=== PATIENT | male | born 1965 | race Caucasian/White ===

== ENCOUNTER 2021-01-08 07:36 | Outpatient (REF) | payer OTHER, SELFPAY ==
[2021-01-08 10:53] LABS: Alanine Aminotransferase 14 U/L (0-40); Anion Gap 15 (12-20); Aspartate Amino Transferase 19 U/L (5-37); Blood Urea Nitrogen 20 mg/dL (9-16); Carbon Dioxide 26 mmol/L (22-29); Chloride 102 mmol/L (96-108); Estimated Glomerular Filt Rate > 60; Potassium 3.9 mmol/L (3.3-5.1); Sodium 139 mmol/L (135-145)
[2021-01-08 11:17] LABS: Free T4 (Free Thyroxine) 1.22 ng/dL (0.71-1.85); Thyroid Stimulating Hormone 2.73 uIU/mL (0.32-4.0)
== END 2021-01-08 07:37 | disposition home or self-care (01) ==
LOC: HO.10HDL 07:36
PROVIDERS: Visit Provider Family Medicine
DX: I42.9 Cardiomyopathy, unspecified (principal); R00.2 Palpitations; Z79.899 Other long term (current) drug therapy
CPT/HCPCS: 36415; 80051; 82550; 82565; 84439; 84443; 84450; 84460; 84520

== ENCOUNTER 2021-10-13 08:11 | Outpatient (REF) | payer OTHER, SELFPAY ==
[2021-10-13 10:28] LABS: MANUAL DIFF FLAG NO
[2021-10-13 10:47] LABS: Basophils Absolute Auto 0.1 X10*3/uL (0.0-0.2); Basophils Percent Auto 0.9 % (0-2); Eosinophils Absolute Auto 0.1 X10*3/uL (0.0-0.4); Hematocrit 35.8 % (42.0-52.0); Hemoglobin 12.3 g/dl (14.0-18.0); Imm Gran Abs Auto 0.02 X10*3/uL (0.00-0.03); Imm Gran Pct Auto 0.4 % (0.0-0.4); Lymphocytes Absolute Auto 1.5 X10*3/uL (1.2-4.9); Lymphocytes Percent Auto 28.4 % (20-40); Mean Corpuscular HGB Conc 34.4 g/dl (31.0-36.0); Mean Corpuscular Hemoglobin 30.8 pg (27.0-33.0); Mean Corpuscular Volume 89.5 fL (80.0-98.0); Mean Platelet Volume 9.8 fL (9.4-12.4); Monocytes Absolute Auto 0.5 X10*3/uL (0.1-1.2); Monocytes Percent Auto 9.1 % (2-11); Neutrophils Absolute Auto 3.2 x10*3/uL (2.0-8.3); Neutrophils Percent Auto 59.2 % (45-73); Platelet Count 261 X10*3/uL (160-400); Red Cell Distribution Width 12.7 % (11.0-16.0); White Blood Count 5.4 X10*3/uL (4.8-10.8)
[2021-10-13 10:54] LABS: Anion Gap 11 (12-20); Blood Urea Nitrogen 24 mg/dL (9-16); Carbon Dioxide 28 mmol/L (22-29); Chloride 105 mmol/L (96-108); Estimated Glomerular Filt Rate > 60; Potassium 4.2 mmol/L (3.3-5.1); Sodium 140 mmol/L (135-145)
[2021-10-13 11:18] LABS: Free T4 (Free Thyroxine) 1.19 ng/dL (0.71-1.85); Thyroid Stimulating Hormone 3.46 uIU/mL (0.32-4.0)
== END 2021-10-13 08:12 | disposition home or self-care (01) ==
LOC: HO.10HDL 08:11
PROVIDERS: Absent Provider Internal Medicine Cardiovascular Disease; Visit Provider Family Medicine
DX: R06.02 Shortness of breath (principal); Z79.899 Other long term (current) drug therapy
CPT/HCPCS: 36415; 80051; 82565; 84439; 84443; 84520; 85025

== ENCOUNTER 2021-12-15 14:01 | Outpatient (REF) | payer OTHER, SELFPAY ==
[2021-12-15 14:33] LABS: INTERNATIONAL NORM RATIO 1.2 (0.9-1.1); Prothrombin Time 13.1 SEC (9.9-13.0)
== END 2021-12-15 14:02 | disposition home or self-care (01) ==
LOC: HO.LAB 14:01
PROVIDERS: PCP Family Medicine; Visit Provider Family Medicine
DX: Z01.818 Encounter for other preprocedural examination (principal); Z79.01 Long term (current) use of anticoagulants
CPT/HCPCS: 36415; 85610

== ENCOUNTER 2022-01-27 08:24 | Outpatient (REF) | payer OTHER, SELFPAY ==
[2022-01-27 10:32] LABS: MANUAL DIFF FLAG NO
[2022-01-27 10:39] LABS: Basophils Percent Auto 0.5 % (0-2); Eosinophils Absolute Auto 0.2 X10*3/uL (0.0-0.4); Eosinophils Percent Auto 2.6 % (0-4); Hematocrit 35.4 % (42.0-52.0); Hemoglobin 12.5 g/dl (14.0-18.0); Imm Gran Abs Auto 0.03 X10*3/uL (0.00-0.03); Imm Gran Pct Auto 0.5 % (0.0-0.4); Lymphocytes Absolute Auto 1.7 X10*3/uL (1.2-4.9); Lymphocytes Percent Auto 29.8 % (20-40); Mean Corpuscular HGB Conc 35.3 g/dl (31.0-36.0); Mean Corpuscular Hemoglobin 31.5 pg (27.0-33.0); Mean Corpuscular Volume 89.2 fL (80.0-98.0); Mean Platelet Volume 9.6 fL (9.4-12.4); Monocytes Absolute Auto 0.7 X10*3/uL (0.1-1.2); Monocytes Percent Auto 11.7 % (2-11); Neutrophils Absolute Auto 3.2 x10*3/uL (2.0-8.3); Neutrophils Percent Auto 54.9 % (45-73); Platelet Count 274 X10*3/uL (160-400); Red Blood Count 3.97 X10*6/uL (4.60-5.80); White Blood Count 5.8 X10*3/uL (4.8-10.8)
[2022-01-27 11:05] LABS: Iron 78 mcg/dL (45-160); Percent Iron Saturation 23 % (15-50); Total Iron Binding Capacity 343 mcg/dL (228-428); Unsaturated Iron Binding 265 ug/dL
[2022-01-27 11:12] LABS: Ferritin 118 ng/mL (20-250)
[2022-01-27 11:18] LABS: Alanine Aminotransferase 15 U/L (0-40); Albumin Level 4.3 g/dL (3.5-5.0); Alkaline Phosphatase 38 U/L (39-117); Anion Gap 9 (12-20); Aspartate Amino Transferase 16 U/L (5-37); Bilirubin Total 0.6 mg/dL (0.0-1.0); Blood Urea Nitrogen 23 mg/dL (9-16); Calcium 10.4 mg/dL (8.4-10.2); Carbon Dioxide 30 mmol/L (22-29); Chloride 106 mmol/L (96-108); Estimated Glomerular Filt Rate > 60; Glucose Random 92 mg/dL (60-115); Potassium 4.8 mmol/L (3.3-5.1); Sodium 140 mmol/L (135-145); Total Protein 6.8 g/dL (6.5-8.0)
[2022-01-27 14:48] LABS: Folate 9.9 ng/mL (> or = 4.0); Vitamin B12 459 pg/mL (200-900)
== END 2022-01-27 08:25 | disposition home or self-care (01) ==
LOC: HO.10HDL 08:24
PROVIDERS: Internal Medicine Cardiovascular Disease; Visit Provider Family Medicine
DX: D64.9 Anemia, unspecified (principal); I42.8 Other cardiomyopathies
CPT/HCPCS: 36415; 80053; 82607; 82728; 82746; 83540; 85025

== ENCOUNTER 2022-07-09 08:35 | Outpatient (REF) | payer OTHER, SELFPAY ==
--- NOTE | ~2022-07-09 | XR_ITS ---
EXAMINATION: XR SINUSES CLINICAL INFORMATION: Headaches sinus pressure COMPARISON: None TECHNIQUE: 3 views of the sinuses were obtained. FINDINGS: Paranasal sinuses appear clear without air-fluid levels. No fractures are identified. No radiodense foreign bodies. XR/XR sinus min 3V IMPRESSION: Unremarkable examination.
--- NOTE | ~2022-07-09 | XR_ITS ---
EXAMINATION: XR CERVICAL SPINE CLINICAL INFORMATION: Neck pain COMPARISON: None TECHNIQUE: 6 views of the cervical spine are obtained: AP, odontoid x2, lateral, bilateral oblique. FINDINGS: There is straightening cervical lordosis with mild reversal cervical lordosis. The vertebral bodies are normal in height and there is no vertebral compression, spondylolisthesis, destructive process, or prevertebral soft tissue swelling. There are degenerative disc changes with disc narrowing and vertebral spurring C5-C6, C6-C7, and C7-T1. Oblique views demonstrated left foraminal spurring at both C5-C6 and at C7-T1, and borderline bilateral foraminal spurring at C6-C7. No cervical rib. Lung apices are clear. There is an AICD noted upper chest. XR/XR cervical spine min 6V IMPRESSION: 1. Degenerative disc changes C5-C6, C6-C7, and C7-T1. 2. Left foraminal spurring at both C5-C6 and C7-T1. Mild bilateral foraminal spurring C6-C7.
== END 2022-07-09 08:36 | disposition home or self-care (01) ==
LOC: HO.XRAY 08:35
PROVIDERS: PCP Family Medicine; Visit Provider Family Medicine
DX: R51.9 Headache, unspecified (principal); M54.2 Cervicalgia
CPT/HCPCS: 70220; 72052

== ENCOUNTER → 2022-09-15 13:26 | Outpatient (BNVA) | payer OTHER, SELFPAY | PROVIDERS: PCP Family Medicine; Visit Provider Surgery | DX: R22.42 Localized swelling, mass and lump, left lower limb (principal); I49.9 Cardiac arrhythmia, unspecified; Z79.01 Long term (current) use of anticoagulants; Z95.0 Presence of cardiac pacemaker | CPT/HCPCS: 11406; 88304; 99202 ==

== ENCOUNTER 2022-09-15 18:14 | Outpatient (REF) | payer OTHER, SELFPAY | END 2022-09-15 18:15 | disposition home or self-care (01) | LOC: HO.LNP 18:14 | PROVIDERS: Visit Provider Surgery | DX: R22.40 Localized swelling, mass and lump, unspecified lower limb (principal) | CPT/HCPCS: 11406 ==

== ENCOUNTER → 2022-09-30 10:33 | Outpatient (BNVA) | payer OTHER, SELFPAY | PROVIDERS: PCP Family Medicine; Visit Provider Surgery | DX: Z13.89 Encounter for screening for other disorder (principal) ==

== ENCOUNTER 2022-10-13 09:13 | Outpatient (REF) | payer OTHER, SELFPAY ==
[2022-10-13 09:27] LABS: MANUAL DIFF FLAG NO
[2022-10-13 10:04] LABS: Basophils Absolute Auto 0.1 X10*3/uL (0.0-0.2); Basophils Percent Auto 1.2 % (0-2); Eosinophils Absolute Auto 0.1 X10*3/uL (0.0-0.4); Hematocrit 38.2 % (42.0-52.0); Hemoglobin 13.4 g/dl (14.0-18.0); Imm Gran Abs Auto 0.02 X10*3/uL (0.00-0.03); Imm Gran Pct Auto 0.4 % (0.0-0.4); Lymphocytes Absolute Auto 1.6 X10*3/uL (1.2-4.9); Lymphocytes Percent Auto 32.1 % (20-40); Mean Corpuscular HGB Conc 35.1 g/dl (31.0-36.0); Mean Corpuscular Hemoglobin 30.9 pg (27.0-33.0); Mean Platelet Volume 9.4 fL (9.4-12.4); Monocytes Absolute Auto 0.5 X10*3/uL (0.1-1.2); Monocytes Percent Auto 10.2 % (2-11); Neutrophils Absolute Auto 2.8 x10*3/uL (2.0-8.3); Neutrophils Percent Auto 54.1 % (45-73); Platelet Count 254 X10*3/uL (160-400); Red Blood Count 4.34 X10*6/uL (4.60-5.80); Red Cell Distribution Width 12.3 % (11.0-16.0); White Blood Count 5.1 X10*3/uL (4.8-10.8)
[2022-10-13 10:40] LABS: Anion Gap 11 (12-20); Blood Urea Nitrogen 16 mg/dL (9-16); Carbon Dioxide 27 mmol/L (22-29); Chloride 104 mmol/L (96-108); Estimated Glomerular Filt Rate > 60; Iron 93 mcg/dL (45-160); Percent Iron Saturation 30 % (15-50); Potassium 4.1 mmol/L (3.3-5.1); Sodium 138 mmol/L (135-145); Total Iron Binding Capacity 313 mcg/dL (228-428); Unsaturated Iron Binding 220 ug/dL
[2022-10-13 10:56] LABS: Free T4 (Free Thyroxine) 1.22 ng/dL (0.71-1.85)
== END 2022-10-13 09:14 | disposition home or self-care (01) ==
LOC: HO.LAB 09:13
PROVIDERS: Visit Provider Family Medicine
DX: I11.0 Hypertensive heart disease with heart failure (principal); I50.9 Heart failure, unspecified; D50.9 Iron deficiency anemia, unspecified
CPT/HCPCS: 36415; 80051; 82565; 83540; 84439; 84520; 85025

== ENCOUNTER 2023-07-07 09:07 | Outpatient (REF) | payer OTHER, SELFPAY ==
[2023-07-07 11:16] LABS: Alanine Aminotransferase 11 U/L (0-40); Anion Gap 11 (12-20); Aspartate Amino Transferase 15 U/L (5-37); Blood Urea Nitrogen 20 mg/dL (9-16); Carbon Dioxide 28 mmol/L (22-29); Chloride 103 mmol/L (96-108); Estimated Glomerular Filt Rate > 60; Sodium 138 mmol/L (135-145)
== END 2023-07-07 09:08 | disposition home or self-care (01) ==
LOC: HO.10HDL 09:07
PROVIDERS: Visit Provider Family Medicine
DX: I10 Essential (primary) hypertension (principal); E78.00 Pure hypercholesterolemia, unspecified; Z79.899 Other long term (current) drug therapy
CPT/HCPCS: 36415; 80051; 82550; 82565; 84450; 84460; 84520

== ENCOUNTER 2024-02-15 07:59 | Outpatient (REF) | payer OTHER, SELFPAY ==
[2024-02-15 11:00] LABS: Anion Gap 14 (12-20); Blood Urea Nitrogen 17 mg/dL (9-16); Carbon Dioxide 24 mmol/L (22-29); Chloride 106 mmol/L (96-108); Estimated Glomerular Filt Rate > 60; Sodium 140 mmol/L (135-145)
[2024-02-15 11:09] LABS: Free T4 (Free Thyroxine) 1.33 ng/dL (0.71-1.85); Thyroid Stimulating Hormone 2.99 uIU/mL (0.32-4.0)
== END 2024-02-15 08:00 | disposition home or self-care (01) ==
LOC: HO.10HDL 07:59
PROVIDERS: Visit Provider Family Medicine
DX: I10 Essential (primary) hypertension (principal); I49.5 Sick sinus syndrome
CPT/HCPCS: 36415; 80051; 82565; 84439; 84443; 84520

== ENCOUNTER 2024-09-06 10:16 | Outpatient (AMB) | payer OTHER, SELFPAY ==
--- OUTSIDE RECORDS SUMMARY | 2024-09-06 10:19 | XMS_ITS ---
Author Organization [facility] Address [address] [place] [address] Care Team Providers Care Tobacco Packing Machine Operator Name Role Phone Juan Carlos Rios MD Primary Care Provider Unavailab Ion Delarosa Unavailable [phone] REASON FOR VISIT cancel appt and reschedule Encounters Encounter Location Date Provider Diagnosis [facility] [address] [place] [address] 06/05/2024 Ion Mckeon PLAN OF TREATMENT Next Appt Details Provider Name:Ion Mckeon , 10/02/2024 11:10:00 AM, [address] [place] [address], [address], [place], [address],
--- OUTSIDE RECORDS SUMMARY | 2024-09-06 10:19 | XMS_ITS | Patient Health Record ---
Author Organization [facility] Address [address] [place] [address] Care Team Providers Care Assistant Director Name Role Phone Gabriel SERRATO, Juan Carlos Primary Care Provider Ion Martinez [phone] REASON FOR REFERRAL No Information SOCIAL HISTORY Sex Assigned At : Social History Observation Description Sex Assigned At Unknown Encounters Encounter Location Date Provider Diagnosis [facility] [address] [place] [phone] 06/05/2024 Ion Mckeon [facility] [address] [facility] [address] [place] [address] 06/05/2024 Ion Mckeon PLAN OF TREATMENT Next Appt Details Provider Name:Ion Mckeon , 10/02/2024 11:10:00 AM, [address] [facility], [address], [place], [address], Insurance Providers Payer Name Payer Address Payer Phone Subscriber Number Group Number Insured Name Patient Relationship to Insured Coverage Start Date Coverage End Date [facility] [address] [address] [place], [place] [id number] KIM DAY Self - patient is the insured
--- OUTSIDE RECORDS SUMMARY | 2024-09-06 10:19 | XMS_ITS ---
Author Organization [facility] Address [address] [facility] [address] [place] [address] Care Team Providers Care Head Usher Name Role Phone Juan Carlos Rios MD Primary Care Provider Unavailab Ion Delarosa [facility] [phone] REASON FOR VISIT Patient presents today for a screening colonoscopy Encounters Encounter Location Date Provider Diagnosis [facility] [address] [place] [address] [address] [place] [address] 06/05/2024 Ion Mckeon PLAN OF TREATMENT Next Appt Details Provider Name:Ion Mckeon , 10/02/2024 11:10:00 AM, [address] [place] [address], [address], [place], [address],
--- NOTE | 2024-09-06 10:27 | A.OFFVIS_ITS ---
Intake Visit Reasons: Penile Rash/BPH/HX Kidney Stones Intake Note: Patient is present for PENILE RASH/BPH/HX KIDNEY STONES Urology Medication:NONE Antibiotic Allergy:CLARITHROMYCIN Blood Thinner:XARELTO TODAY'S PVR:0ML'S Mid Level Java Developer Required: No Allergies clarithromycin [Biaxin] Allergy (Unknown, Verified 09/06/24 10:29) Agitated codeine Allergy (Unknown, Uncoded 09/06/24 10:29) Anxiety HPI Comments Details: Alan is a pleasant male. He is a patient of Dr. Rios. He seen for the following urologic conditions - balanitis - tinea cruris - lower urinary tract symptoms Lower urinary tract symptoms Progressive Predominantly weakness of stream over the past 4-6 months No prior indications Trial tamsulosin Tinea cruris Longstanding Recently given powder to use Will trial terbinafine Balanitis Prescription for topical therapy provided [facility] Medical History (Updated 09/06/24 @ 10:58 by Olivier Whatley MD) CHF (congestive heart failure) Heart disease Dilated cardiomyopathy Pilonidal cyst with abscess Tinea cruris Obstructive sleep apnea (adult) (pediatric) Paroxysmal atrial fibrillation Atrioventricular block, complete Pure hyperglyceridemia Other seasonal allergic rhinitis Gastro-esophageal reflux disease without esophagitis Nonrheumatic mitral (valve) insufficiency Encounter for screening for malignant neoplasm of colon BPH without urinary obstruction or lower urinary tract symptoms History of cardiac pacemaker History of kidney stones Pulmonary fibrosis, unspecified Dysphagia Primary hypertension Disorder of the skin and subcutaneous tissue, unspecified Mass of thigh Hypertension Pacemaker Surgical History History of open heart surgery Family History Mother Diabetes Thyroid disease Father Heart disease Social History Alcohol intake: current Alcohol intake frequency: holidays/special occasions only Patient Tobacco Use Status: Never used Tobacco Review of Systems Const Denies chills and Denies fever(s) Card Reports no additional complaints and Denies syncope Resp Denies cough GI Denies abdominal pain and Denies heartburn Reports as per HPI and Denies change in libido Neuro Denies syncope Psych Denies change in libido Endo Denies change in libido Physical Exam Const General: cooperative, healthy appearing, comfortable and no acute distress Orientation/consciousness: patient oriented x3 HEENT Face and sinus: Yes normal facial exam Mouth: moist mucous membranes Neck Neck: Yes normal visual inspection, Yes full ROM and Yes trachea midline Chest Chest palpation & inspection: normal inspection of the chest Resp Effort & Inspection: normal respiratory effort, able to speak in complete sentences and no respiratory distress GI Inspection: Yes normal to inspection Back/Spine/Pelvis Cervical Spine: normal cervical lordosis Thoracic/Lumbar Spine: thoracic and lumbar spine normal to inspection Skin General skin exam: no rashes or lesions noted Neuro General: patient oriented x3, gait normal, tone normal and moves all extremities Extrem General: Yes normal to inspection and Yes capillary refill normal Office Procedures Post Void Residual Post Residual Void Post Void Residual (PVR): 0 58213-Jqin Void Residual by ultrasound Results AMB Urinalysis, Automated UA Leukoctes 0 John/uL Last Edit by FLORIDA Kasper on 09/06/24 10:37 UA Nitrite Negative Last Edit by FLORIDA Kasper on 09/06/24 10:37 UA Urobilinogen 0.2 mg/dL Last Edit by FLORIDA Kasper on 09/06/24 10:3 7 UA Protein 0 mg/dL Last Edit by FLORIDA Kasper on 09/06/24 10:37 UA pH 6.0 Last Edit by FLORIDA Kasper on 09/06/24 10:37 UA Blood 0 Tal/uL Last Edit by FLORIDA Kasper on 09/06/24 10:37 UA Specific [place] 1.025 Last Edit by FLORIDA Kasper on 09/06/24 10: 37 UA Ketone Negative Last Edit by FLORIDA Kasper on 09/06/24 10:37 UA Bilirubin 0 mg/dL Last Edit by FLORIDA Kasper on 09/06/24 10:37 UA Glucose 0 mg/dL Last Edit by FLORIDA Kasper on 09/06/24 10:37 Results Reviewed Results Reviewed: Laboratory Last Values Urine pH (Auto) 6.0 09/06/24 10:37 Specific [place] (Auto) 1.025 09/06/24 10:37 Urine Protein (Auto) 0 mg/dL 09/06/24 10:37 Glucose (UA)(Auto) 0 mg/dL 09/06/24 10:37 Urine Ketones (Auto) Negative 09/06/24 10:37 Urine Blood (Auto) 0 Tal/uL 09/06/24 10:37 Urine Nitrite (Auto) Negative 09/06/24 10:37 Urine Bilirubin (Auto) 0 mg/dL 09/06/24 10:37 Urine Urobilinogen (Auto) 0.2 mg/dL 09/06/24 10:37 Leukocyte Esterase (Auto) 0 John/uL 09/06/24 10:37 Assessment & Plan Assessment & Plan (1) Tinea cruris: Code(s): B35.6 - Tinea cruris Category: Medical (2) Balanitis: Code(s): N48.1 - Balanitis Category: Medical (3) Bladder outlet obstruction: Code(s): N32.0 - Bladder-neck obstruction Category: Medical Plan Prescriptions provided Six week follow-up Orders: Orders AMB Urinalysis Automated Today Z13.9 - Encounter for screening, unspecified Medications: New terbinafine HCl 250 mg PO DAILY 7 days 7 tabs 0RF B35.6 - Tinea cruris tamsulosin 0.4 mg PO BEDTIME 30 days 30 caps 1RF N32.0 - Bladder-neck obstruction, N40.1 - Benign prostatic hyperplasia with lower urinary tract symptoms, R35.1 - Nocturia clotrimazole-betamethasone 1-0.05 % Apply thin coat 2 times per day 1 appl topical BID 4 weeks 45 grams 0RF N48.1 - Balanitis Patient Instructions: Imaging studies, laboratory and physical exam results were discussed and reviewed in detail. No major barriers to patient understanding were identified. An opportunity to ask questions regarding the treatment plan was provided. All questions were answered. The patient expressed understanding and agreement with the above treatment plan. The patient is aware they should contact our office by phone for worsening of their current condition or the appearance of new urologic symptoms. Compliance is encouraged with any medications and followup testing that is ordered. It is a privilege to participate in the urologic care of your patient. If you have any questions or concerns regarding treatment for the above conditions, or other urologic issues, please do not hesitate to contact me. The office telephone contact is [phone]. This note is constructed using voice recognition software. While every effort has been made to ensure accuracy tetryl screen operator errors may have been included. Yours sincerely, Dr Olivier Whatley MD, [facility] - Urology Providers of Expert, Compassionate Care for the Genitourinary System Coding Level of Care Code New Pt Level 4 (34024) Diagnoses Tinea cruris B35.6 Balanitis N48.1 Bladder outlet obstruction N32.0 CPT Codes Post Residual Void - PVR CPT Code: 86990-Citr Void Residual by ultrasound ([id number])
== END 2024-09-06 11:00 | disposition home or self-care (01) ==
PROVIDERS: PCP Family Medicine; Visit Provider Urology
DX: B35.6 Tinea cruris (principal); N48.1 Balanitis; N32.0 Bladder-neck obstruction; Z13.9 Encounter for screening, unspecified
CPT/HCPCS: 99204

== ENCOUNTER → 2024-09-06 10:16 | Outpatient (BNVA) | payer OTHER, SELFPAY | PROVIDERS: PCP Family Medicine; Visit Provider Urology | DX: B35.6 Tinea cruris (principal); N48.1 Balanitis; N32.0 Bladder-neck obstruction | CPT/HCPCS: 51798; 81003; 99202 ==

== ENCOUNTER 2024-12-07 07:53 | Outpatient (REF) | payer OTHER, SELFPAY ==
[2024-12-07 09:38] LABS: MANUAL DIFF FLAG NO
[2024-12-07 09:56] LABS: Basophils Absolute Auto 0.1 X10*3/uL (0.0-0.2); Basophils Percent Auto 0.9 % (0-2); Eosinophils Absolute Auto 0.1 X10*3/uL (0.0-0.4); Eosinophils Percent Auto 2.6 % (0-4); Hematocrit 36.4 % (42.0-52.0); Hemoglobin 13.1 g/dl (14.0-18.0); Imm Gran Abs Auto 0.02 X10*3/uL (0.00-0.03); Imm Gran Pct Auto 0.4 % (0.0-0.4); Lymphocytes Absolute Auto 1.7 X10*3/uL (1.2-4.9); Lymphocytes Percent Auto 31.6 % (20-40); Mean Corpuscular Hemoglobin 31.4 pg (27.0-33.0); Mean Corpuscular Volume 87.3 fL (80.0-98.0); Mean Platelet Volume 9.3 fL (9.4-12.4); Monocytes Absolute Auto 0.6 X10*3/uL (0.1-1.2); Monocytes Percent Auto 10.4 % (2-11); Neutrophils Absolute Auto 2.9 x10*3/uL (2.0-8.3); Neutrophils Percent Auto 54.1 % (45-73); Platelet Count 231 X10*3/uL (160-400); Red Blood Count 4.17 X10*6/uL (4.60-5.80); Red Cell Distribution Width 12.9 % (11.0-16.0); White Blood Count 5.3 X10*3/uL (4.8-10.8)
[2024-12-07 10:15] LABS: Alanine Aminotransferase 15 U/L (0-40); Anion Gap 10 (12-20); Aspartate Amino Transferase 20 U/L (5-37); Carbon Dioxide 27 mmol/L (22-29); Chloride 105 mmol/L (96-108); Estimated Glomerular Filt Rate 53; Potassium 4.1 mmol/L (3.3-5.1); Sodium 138 mmol/L (135-145)
[2024-12-07 10:25] LABS: Prostate Specific Antigen Scr 0.44 ng/mL (<0.05-4.0)
[2024-12-07 10:34] LABS: Free T4 (Free Thyroxine) 1.19 ng/dL (0.71-1.85); Thyroid Stimulating Hormone 3.73 uIU/mL (0.32-4.0)
== END 2024-12-07 07:54 | disposition home or self-care (01) ==
LOC: HO.10HDL 07:53
PROVIDERS: Visit Provider Family Medicine
DX: N40.1 Benign prostatic hyperplasia with lower urinary tract symptoms (principal); R53.83 Other fatigue; I42.9 Cardiomyopathy, unspecified
CPT/HCPCS: 36415; 80051; 82550; 82565; 84153; 84439; 84443; 84450; 84460; 85025

== ENCOUNTER 2024-12-18 11:47 | Outpatient (AMB) | payer OTHER, SELFPAY ==
--- NOTE | 2024-12-18 11:50 | A.OFFVIS_ITS ---
Intake Visit Reasons: 6w Med Review Intake Note: Patient is present for 6M MED REVIEW Urology Medication:TAMSULSOIN Antibiotic Allergy:CLARITHROMYCIN Blood Thinner:RIVAROXABAN Community Services Manager Required: No Allergies clarithromycin [Biaxin] Allergy (Severe, Verified 01/30/25 13:54) had an SC after taking Biaxin, avoids all macrolides codeine Allergy (Severe, Uncoded 01/29/25 16:18) Hypotension HPI Comments Details: Alan is a pleasant male. He is a patient of Dr. Rios. He seen for the following urologic conditions - balanitis - tinea cruris - lower urinary tract symptoms Follow-up use of tamsulosin Refill tamsulosin Six-month follow-up imaging Lower urinary tract symptoms Progressive Predominantly weakness of stream over the past 4-6 months No prior indications Tinea cruris Longstanding Recently given powder to use Will trial terbinafine Balanitis Prescription for topical therapy provided [facility] Medical History Anxiety Seasonal allergies Environmental allergies History of cardioversion Hx of myocardial infarction (~2011) 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 CHF (congestive heart failure) Heart disease Dilated cardiomyopathy Pilonidal cyst with abscess Tinea cruris Obstructive sleep apnea (adult) (pediatric) Paroxysmal atrial fibrillation Atrioventricular block, complete Pure hyperglyceridemia Other seasonal allergic rhinitis Gastro-esophageal reflux disease without esophagitis Nonrheumatic mitral (valve) insufficiency Encounter for screening for malignant neoplasm of colon BPH without urinary obstruction or lower urinary tract symptoms History of cardiac pacemaker History of kidney stones Pulmonary fibrosis, unspecified Dysphagia Primary hypertension Disorder of the skin and subcutaneous tissue, unspecified Mass of thigh Hypertension Pacemaker (~1999) Surgical History Hx of oral surgery (~2022) History of open heart surgery (1969) Family History Mother Diabetes Thyroid disease Father Heart disease Social History Household Members: Spouse Housing: House Are you a primary post acute care nurse practitioner to a significant other at home: No Do you presently have visiting nurse or other home services: No Alcohol intake: current Alcohol intake frequency: holidays/special occasions only Patient Tobacco Use Status: Never used Tobacco Use of substances other than those prescribed or required for medical reasons: No Have you been hit, kicked, punched, or otherwise hurt by someone within the past year? If so, by whom?: No Are you DNR?: No Advance Directives: No Advance Directives Information Provided: Yes Advance Directives on File: No Poor oral hygiene: Yes Review of Systems Const Denies chills and Denies fever(s) Card Reports no additional complaints and Denies syncope Resp Denies cough GI Denies abdominal pain and Denies heartburn Reports as per HPI and Denies change in libido Neuro Denies syncope Psych Denies change in libido Endo Denies change in libido Physical Exam Const General: cooperative, healthy appearing, comfortable and no acute distress Orientation/consciousness: patient oriented x3 HEENT Face and sinus: Yes normal facial exam Mouth: moist mucous membranes Neck Neck: Yes normal visual inspection, Yes full ROM and Yes trachea midline Chest Chest palpation & inspection: normal inspection of the chest Resp Effort & Inspection: normal respiratory effort, able to speak in complete sentences and no respiratory distress GI Inspection: Yes normal to inspection Back/Spine/Pelvis Cervical Spine: normal cervical lordosis Thoracic/Lumbar Spine: thoracic and lumbar spine normal to inspection Skin General skin exam: no rashes or lesions noted Neuro General: patient oriented x3, gait normal, tone normal and moves all extremities Extrem General: Yes normal to inspection and Yes capillary refill normal Assessment & Plan Assessment & Plan (1) Bladder outlet obstruction: Code(s): N32.0 - Bladder-neck obstruction Category: Medical Plan Six-month follow-up PSA Orders: Orders Prostate Specific Antigen 6 Months N32.0 - Bladder-neck obstruction US bladder 6 Months R39.12 - Poor urinary stream, N32.0 - Bladder-neck obstruction Patient Instructions: This note is constructed using voice recognition software. While every effort has been made to ensure accuracy housekeeping coordinator errors may have been included. Imaging studies, laboratory and physical exam results were discussed and reviewed in detail. No major barriers to patient understanding were identified. An opportunity to ask questions regarding the treatment plan was provided. All questions were answered. The patient expressed understanding and agreement with the above treatment plan. The patient is aware they should contact our office by phone for worsening of their current condition or the appearance of new urologic symptoms. Compliance is encouraged with any medications and followup testing that is ordered. It is a privilege to participate in the urologic care of your patient. If you have any questions or concerns regarding treatment for the above conditions, or other urologic issues, please do not hesitate to contact me. The office telephone contact is [phone]. Sincerely, Dr Olivier Whatley MD, [facility] - Urology Compassionate Specialist Care for the Genitourinary System Coding Level of Care Code Est Pt Level 3 (91542) Diagnoses Bladder outlet obstruction N32.0
--- OUTSIDE RECORDS SUMMARY | 2024-12-18 14:34 | XMS_ITS | Encounter Summary ---
Author Organization [employer] Address [address] [facility] [facility] [address] [place] [address] Care Team Providers Care Gage Maker Name Role Phone Unavailable Primary Care Provider Unavailabl e Reason for Visit * Reason Onset Date Comments Appointment 11/16/2022 Encounter Details Date Type Department Care Team (Late st Contact Info) Description 11/16/2022 Telephone [facility] [address] [place], [place] [id number] Vargas Pearson, SHANIA [address] [place] [address] Appointment Social History Tobacco Use Types Packs/Day Years Used Date Smoking Tobacco: Never Assessed Sex and Gender Information Value Date Recorded Sex Assigned at Male 07/12/2022 10:39 AM EDT Legal Sex Male 10:39 AM EDT Gender Identity Male 07/12/2022 10:39 AM EDT Sexual Orientation Straight 07/12/2022 10 :39 AM EDT documented as of this encounter Miscellaneous Notes * Telephone Encounter - Raeann Horan - 11/16/2022 10:33 AM EST The last time patient came in for Ext with Oral surgeon was in June of 2022. He is looking for appt to come back and complete extractions with Oral Surgeon documented in this encounter Plan of Treatment Not on file documented as of this encounter Visit Diagnoses Not on filedocumented in this encounter
--- OUTSIDE RECORDS SUMMARY | 2024-12-18 14:34 | XMS_ITS | Encounter Summary ---
Author Organization [employer] Address [address] [facility] [address] [place] [address] Care Team Providers Care Graphic Design Assistant Name Role Phone Unavailable Primary Care Provider Unavailabl e Reason for Visit * Reason Onset Date Comments Appointment 02/17/2023 Encounter Details Date Type Department Care Team (Late st Contact Info) Description 02/17/2023 Telephone [facility] [address] [place] [address] uHgo Truong, HERONS [address] [place] [address] Appointment Social History Tobacco Use Types Packs/Day Years Used Date Smoking Tobacco: Never Smokeless Tobacco: Never Sex and Gender Information Value Date Recorded Sex Assigned at Male 07/12/2022 10:39 AM EDT Legal Sex Male 10:39 AM EDT Gender Identity Male 07/12/2022 10:39 AM EDT Sexual Orientation Straight 07/12/2022 10 :39 AM EDT COVID-19 Exposure Response Date Recorded In the last 10 days, have yo u been in contact with someone who was confirmed or suspected to have Coronavirus/COVID-19? No / Unsure 02/15/2023 8:00 AM EDT documented as of this encounter Miscellaneous Notes * Telephone Encounter - Kasandra Reyes - 02/17/2023 10:30 AM EDT Alan Ena 1965 Patient called in and stated he was seen on 02/15/23 for EXO and was given a antibiotic and its upsetting his stomach and would like and would like amoxicillin sent to the pharmacy please advise. documented in this encounter Plan of Treatment Not on file documented as of this encounter Visit Diagnoses Not on filedocumented in this encounter
--- OUTSIDE RECORDS SUMMARY | 2024-12-18 14:34 | XMS_ITS ---
Author Organization [facility] Address [address] [place] [address] Care Team Providers Care Acid Crane Operator Name Role Phone Gabriel SERRATO, Juan Carlos Primary Care Provider Unavailab Ion Delarosa [phone] REASON FOR VISIT Patient presents today for a screening colonoscopy Encounters Encounter Location Date Provider Diagnosis [facility] [address] [facility] [address] [place] [address] 06/05/2024 Ion Mckeon Plan Of Treatment Next Appt Details Provider Name:Ion Mckeon , 02/13/2025 08:30:00 AM, [address] [place] [address] , [place], [place], [phone], Progress Notes * SHAYARMANIKOLEDOB:1965 (59 yo M)Acc No.[id number]:06/05/2024 Progress Notes Patient:?KIM SUTHERLAND Provider:?Ion Mckeon MD :1965???Age:59 Y???Sex:Male Marcus e:06/05/2024 Address:[address] [place] [address] [address] [facility] Pcp:Juan Carlos Rios MD Subjective: * Chief Complaints: * ???1. Patient presents today for a screening colonoscopy. * Medical History:? Objective: * Vitals:? Assessment: Plan: * Treatment: * * The named appointment provid er may or may not be the originator of this progress note, and it is not deemed complete until electronically signed by the appointment provider. Sign off status: Pending * Provider:?Ion Mckeon MD Date:? 024 Generated for Devaughn jenkins/Di/Singh on:?12/18/2024 02:34 PM EDT
--- OUTSIDE RECORDS SUMMARY | 2024-12-18 14:34 | XMS_ITS | Clinical Summary ---
Author Organization [facility] ity Address [address] [place] [address] Care Team Providers Care Clean Rice Grader And Reel Tender Name Role Phone Unavailable Primary Care Provider Unavailabl e Social History Tobacco Use Types Packs/Day Years Used Date Smoking Tobacco: Never Assessed Sex and Gender Information Value Date Recorded Sex Assigned at Not on file Legal Sex Male 6:59 PM EST Gender Identity Not on file Sexual Orientation Not on file Plan of Treatment Health Maintenance Due Date Last Done Comments DTaP,Tdap,and Td Vaccines (1 - Tdap) 1983 Pneumococcal Vaccine: 50+ Ye ars (1 of 1 - PCV) 2014 Zoster Vaccines (1 of 2) 2014 COVID-19 Vaccine ( - 2023-2 5 season) 2024 Influenza Vaccine (Season Ended) 2025 RSV Immunization Adult Patie nts (1 - 1-dose 75+ series) 2039 HIB Vaccines Aged Out No longer eligi ble based on patient's age to complete this topic HPV Vaccines Aged Out No longer eligi ble based on patient's age to complete this topic Hepatitis A Vaccines Aged Out No long er eligible based on patient's age to complete this topic Hepatitis B Vaccines Aged Out No long er eligible based on patient's age to complete this topic IPV Vaccines Aged Out No longer eligi ble based on patient's age to complete this topic MMR Vaccines Aged Out No longer eligi ble based on patient's age to complete this topic Meningococcal ACWY Vaccine Aged Out N o longer eligible based on patient's age to complete this topic Meningococcal B Vaccine Aged Out No l onger eligible based on patient's age to complete this topic Pneumococcal Vaccine: Pediat rics (0 to 5 Years) and At-Risk Patients (6 to 64 Years) Aged Out No longer eligible b ased on patient's age to complete this topic RSV Immunization Patients Un jasmin 20 months Aged Out No longer eligible b ased on patient's age to complete this topic Varicella Vaccines Aged Out No longer eligible based on patient's age to complete this topic
--- OUTSIDE RECORDS SUMMARY | 2024-12-18 14:34 | XMS_ITS | Clinical Summary ---
Author Organization [employer] Address [address] [facility] [address] [place] [address] Care Team Providers Care Ship Scaler Name Role Phone Unavailable Primary Care Provider Unavailabl e Allergies Active Allergy Reactions Criticality Noted Date Comments Clarithromycin 01/14/2023 Medications acetaminophen (Tylenol 8 Hour) 650 MG ER tablet PLEASE SEE ATTACHED FOR DETAILED DIRECTIONS 2 Active acetaminophen (Tylenol 8 Hour) 650 MG ER tablet Take 1 tablet by mouth in the morning and 1 tablet at noon and 1 tablet in the evening. 2 Active amiodarone (Pacerone) 100 MG tablet Take by mouth. 1 Active amiodarone (Pacerone) 100 MG tablet 3 Active carvedilol (Coreg) 25 MG tablet Take by mouth. 1 Active fenofibrate (Triglide) 160 MG tablet Take 1 tablet by mouth in the morning. 1 Active losartan (Cozaar) 25 MG tablet Take 1 tablet by mouth in the morning. Active Xarelto 20 MG tablet TAKE 1 TABLET BY MOUTH EVERY DAY WITH FOOD FOR 90 DAYS 3 Active furosemide (Lasix) 20 MG tablet Take 1 tablet by mouth in the morning. 1 Active Active Problems Problem Noted Date Diagnosed Date Need for prophylactic antibiotic 01/13/2023 Adverse effect of epinephrine 01/13/2023 Overview (01/13/2023): Patient's medical provider recommends to not use epinephrine with patient due to cardiac history. Social History Tobacco Use Types Packs/Day Years Used Date Smoking Tobacco: Never Smokeless Tobacco: Never Tobacco Cessation:Counseling Given: Not Answered Sex and Gender Information Value Date Recorded Sex Assigned at Male 07/12/2022 10:39 AM EDT Legal Sex Male 10:39 AM EDT Gender Identity Male 07/12/2022 10:39 AM EDT Sexual Orientation Straight 07/12/2022 10 :39 AM EDT Last Filed Vital Signs Vital Sign Reading Time Taken Comments Blood Pressure 119/82 02/15/2023 8:18 AM EDT Pulse - - Temperature - - Respiratory Rate - - Oxygen Saturation - - Inhaled Oxygen Concentration - - Weight - - Height - - Body Mass Index - - Plan of Treatment Health Maintenance Due Date Last Done Comments CT Colonography 1964 Colonoscopy 1964 Colorectal Cancer Screening 1964 Dental Prophylaxis 1964 Depression Screening 1964 FIT DNA/Cologuard 1964 FIT 1964 FOBT 1964 HIV Screening 1964 Lipid Panel 1964 SDOH Screening 1964 Sigmoidoscopy 1964 Alcohol/Substance Use Screening 1976 Hepatitis C Screening 1982 Pneumococcal Vaccine: 50+ Years (1 of 1 - PCV) 2014 Zoster Vaccines (1 of 2) 2014 Dental Oral Exam 03/17/2022 09/16/2021 Dental X-Ray: Bitewings 09/17/2022 09/16/2021 COVID-19 Vaccine ( season) 2024 06/01/2023, 01/05/2023, 06/03/2022, Additional history exists Influenza Vaccine (#1) 2024 , 06/03/2022, 06/02/2021, Additional history exists RSV Patients and Patients Aged 60 years or older (1 - Risk 60-74 years 1-dose series) 2024 Tobacco Screening 07/11/2024 07/11/2023 Dental X-Ray: Full Mouth 09/17/2024 09/16/2021 DTaP/Tdap/Td Vaccines (2 - Td or Tdap) 03/23/2028 03/23/2018 HIB Vaccines Aged Out No longer eligi [...] patient's age to complete this topic Meningococcal Vaccine Aged Out No renate will eligible based on patient's age to complete this topic Pneumococcal Vaccine: Pediatrics (0 to 5 Years) and At-Risk Patients (6 to 49) Years) Aged Out No longer eligible based on patient's age to complete this topic RSV under 20 months Aged Out No longe r eligible based on patient's age to complete this topic Rotavirus Vaccines Aged Out No longer eligible based on patient's age to complete this topic Insurance [facility] MEDICAID STAND ADULT
--- OUTSIDE RECORDS SUMMARY | 2024-12-18 14:34 | XMS_ITS | Patient Health Record ---
Author Organization [facility] Address [address] [place] [phone] Care Team Providers Care Fur Repair Inspector Name Role Phone Gabriel SERRATO, Juan Carlos Primary Care Provider Ion Martinez [phone] Allergies Allergen (clinical drug ingredient) Drug/Non Drug Allergy documented on EMR Reaction Allergy Type Onset Date Status Biaxin Unknown Drug Allergy Active Reason For Referral No Information Medications Medication SIG (Take, Route, Frequency, Duration) Notes Start Date End Date Status Tamsulosin HCl 0.4 MG TAKE 1 CAPSULE BY MOUTH EVERYDAY AT BEDTIME Oral for 90 Days Active Fenofibrate 160 MG Oral for 90 Days Active Terbinafine HCl 250 MG TAKE 1 TABLET BY MOUTH EVERY DAY FOR 7 DAYS Oral for 7 Days Active Xarelto 20 MG Oral for 30 Days Active Losartan Potassium 50 MG Oral for 90 Days Active Amiodarone HCl 100 MG Oral for 90 Days Active Vitamin D-3 25 MCG (1000 UT) 1 capsule Orally Once a day for 30 day(s) 10/31/2024 Active Carvedilol 25 MG Oral for 90 Days Active Furosemide 20 MG Oral for 90 Days Active Immunizations Vaccine Route Administration Date Status Comme nts Influenza Unknown 07/03/2024 Administered Social History Tobacco Use: Social History Observation Description Date Details (start date - stop date) Never Smoker NA - NA Tobacco Use/Smoking Question Answer Notes Patient is a nonsmoker Alcohol Screen Question Answer Notes Did you have a drink contain ing alcohol in the past year? Yes How often did you have a dri nk containing alcohol in the past year? Monthly or less (1 point) How many drinks did you have on a typical day when you were drinking in the past year? 1 or 2 drinks (0 point) How often did you have 6 or more drinks on one occasion in the past year? Never (0 point) Points 1 Interpretation Negative Section Notes: Nonsmoker, no sig alcohol Problems Problem Type SNOMED Code ICD Code Onset Dates Problem Status W/U Status Risk Notes Problem Colon cancer screening (167261654) Colon cancer screening (Z12.11) Active confirmed Problem Pre-procedure evaluation check (386152123) Encounter for other preprocedural examination (Z01.818) Active confirmed Vital Signs Temperature 97.5 degrees Fahrenheit 10/31/2024 Blood pressure diastolic 01 mm Hg 10/31/2024 Height 70 in 10/31/2024 Blood pressure systolic 001 mm Hg 10/31/2024 Weight 165 lbs 10/31/2024 BMI 23.67 kg/m2 10/31/2024 Encounters Encounter Location Date Provider Diagnosis [facility] [address] [place] [phone] 10/31/2024 Ion Mckeon Colon cancer screeni ng Z12.11 and Encounter for other preprocedural examination Z01.818 [facility] [address] [place] [phone] 06/05/2024 Ion Mckeon [facility] [address] [place] [phone] 11/22/2024 Ion Mckeon Assessments Encounter Date Diagnosis (ICD Code) Assessment Notes Treatment Notes Treatment Clinical Notes Section Notes 10/31/2024 Colon cancer screening (ICD-10 - Z12.11) Do not take Xarelto for 2 days before the colonoscopy Do not take the Furosemide on the day of the colonoscopy Need clearance from Elevated Motorman, Dr. Jefferson, in [place]--jose martin chikibor has an appt there in 11/2024. Overall, Alan appears well. He is not having any particularly new nor worrisome GI complaints at the present time. Given his age, good clinical appearance, and his never having had a colonoscopy, I did recommend a colonoscopy for screening purposes. We did review the rationale for this in regard to colon cancer prevention. Full consent was obtained for this, including risks of bleeding and perforation. The procedure will be done with monitored anesthesia care. He was given the below instructions regarding adjustment of his medications for the procedure. He does have an appointment with his cemetery counselor next month and we will obtain cardiology clearance for the procedure given the underlying cardiac history. He will also have a PAT appointment at the hospital. Alan was comfortable with this plan. Thank you again for allowing me to participate in Alan's care. I shall continue to keep you advised of his progress. 10/31/2024 Encounter for other preprocedural examination (ICD-10 - Z01.818) Overall, Alan appears well. He is not having any particularly new nor worrisome GI complaints at the present time. Given his age, good clinical appearance, and his never having had a colonoscopy, I did recommend a colonoscopy for screening purposes. We did review the rationale for this in regard to colon cancer prevention. Full consent was obtained for this, including risks of bleeding and perforation. The procedure will be done with monitored anesthesia care. He was given the below instructions regarding adjustment of his medications for the procedure. He does have an appointment with his cemetery counselor next month and we will obtain cardiology clearance for the procedure given the underlying cardiac history. He will also have a PAT appointment at the hospital. Alan was comfortable with this plan. Thank you again for allowing me to participate in Alan's care. I shall continue to keep you advised of his progress. Plan Of Treatment Future Test Test Name Order Date COLONOSCOPY 10/31/2024 Next Appt Details Provider Name:Ion Mckeon , 02/13/2025 08:30:00 AM, [address] [place] [address] , [place], [place], [phone], Insurance Providers Payer Name Payer Address Payer Phone Subscriber Number Group Number Insured Name Patient Relationship to Insured Coverage Start Date Coverage End Date [facility] [address] [address] [place], [place] [id number] ALAN SUTHERLAND Self - patient is the insured Medical (General) History Medical History History ICD Code NM x 2--approx 2007--Dr. 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
--- OUTSIDE RECORDS SUMMARY | 2024-12-18 14:35 | XMS_ITS ---
Author Organization [facility] Address [address] [place] [phone] Care Team Providers Care Tobacco Scrap Sifter Name Role Phone Juan Carlos Rios MD Primary Care Provider Unavailab Ion Delarosa [phone] REASON FOR VISIT office note lock please Encounters Encounter Location Date Provider Diagnosis [facility] [address] [place] [phone] 11/22/2024 Ion Mckeon Plan Of Treatment Next Appt Details Provider Name:Ion Mckeon , 02/13/2025 08:30:00 AM, [address] [place] [address] , [place], [place], [phone], Progress Notes * KIM SUTHERLANDDOB:1965 (59 yo M)Acc No.[id number]:11/22/2024 Patient:?KIM SUTHERLAND :1965???Age:59 Y???Sex:Male Address:[address] [place], [address] * true * Date:? Generated for Printi ng/Fahig/eTransmitting on:?12/18/2024 02:34 PM EDT
--- OUTSIDE RECORDS SUMMARY | 2024-12-18 14:35 | XMS_ITS ---
Author Organization [facility] Address [address] [place] [address] Care Team Providers Care Certified Prosthetist Vice President Name Role Phone Juan Carlos Rois MD Primary Care Provider Ion Martinez [phone] Allergies Allergen (clinical drug ingredient) Drug/Non Drug Allergy documented on EMR Reaction Allergy Type Onset Date Status Biaxin Unknown Drug Allergy Active REASON FOR VISIT Patient presents today for a colon screening Medications Medication SIG (Take, Route, Frequency, Duration) Notes Start Date End Date Status Tamsulosin HCl 0.4 MG TAKE 1 CAPSULE BY MOUTH EVERYDAY AT BEDTIME Oral for 90 Days Active Terbinafine HCl 250 MG TAKE 1 TABLET BY MOUTH EVERY DAY FOR 7 DAYS Oral for 7 Days Active Amiodarone HCl 100 MG Oral for 90 Days Active Carvedilol 25 MG Oral for 90 Days Active Furosemide 20 MG Oral for 90 Days Active Fenofibrate 160 MG Oral for 90 Days Active Xarelto 20 MG Oral for 30 Days Active Losartan Potassium 50 MG Oral for 90 Days Active Vitamin D-3 25 MCG (1000 UT) 1 capsule Orally Once a day for 30 day(s) 10/31/2024 Active Social History Tobacco Use: Social History Observation [...] Status Risk Notes Problem Colon cancer screening (021618097) Colon cancer screening (Z12.11) Active confirmed Problem Pre-procedure evaluation check (477570962) Encounter for other preprocedural examination (Z01.818) Active confirmed Vital Signs Temperature 97.5 degrees Fahrenheit 10/31/19 25 Blood pressure systolic 001 mm Hg 10/31/19 25 Blood pressure diastolic 01 mm Hg 025 Height 70 in 10/31/2024 Weight 165 lbs 10/31/2024 BMI 23.67 kg/m2 10/31/2024 Encounters Encounter Location Date Provider Diagnosis [facility] [address] [place] [address] 10/31/2024 Ion Mckeon Colon cancer screeni ng Z12.11 and Encounter for other preprocedural examination Z01.818 Assessments Encounter Date Diagnosis (ICD Code) Assessment Notes Treatment Notes Treatment Clinical Notes Section Notes 10/31/2024 Colon cancer screening (ICD-10 - Z12.11) Do not take Xarelto for 2 days before the colonoscopy Do not take the Furosemide on the day of the colonoscopy Need clearance from Inspector Elevators, Dr. Jefferson, in [place]--jose martin salvador has an appt there in 11/2024. Overall, [...] He does have an appointment with his instructional assistant next month and we will obtain cardiology [...] He does have an appointment with his instructional assistant next month and we will obtain cardiology clearance for the procedure given the underlying cardiac history. He will also have a PAT appointment at the hospital. Alan was comfortable with this plan. Thank you again for allowing me to participate in Alan's care. I shall continue to keep you advised of his progress. Plan Of Treatment Treatment Notes Assessment Notes Colon cancer screening Do not take Xarelto for 2 days before the colonoscopy Do not take the Furosemide on the day of the colonoscopy Need clearance from Inspector Elevators, Dr. Jefferson, in [place]--patient has an appt there in 11/2024. Future Test Test Name Order Date COLONOSCOPY 10/31/2024 Next Appt Details Follow Up: prn, Reason: Provider Name:Ion Mckeon , 02/13/2025 08:30:00 AM, [address] [place] [address], [phone], Progress Notes * ALAN SUTHERLANDDOB:1965 (59 yo M)Acc No.[id number]:10/31/2024 Progress Notes Patient:ALAN CLAY Provider:?Ion Mckeon MD :1965???Age:59 Y???Sex:Male Marcus e:10/31/2024 Address[address] [place] [place], [place] Pcp:Juan Carlos Rios MD Subjective: * Chief Complaints: * ???Patient presents today fo r a colon screening * HPI: ???incontinence:? I saw Alan in the office today for evaluation of colorectal cancer screening. As you know, Alan is a 59-year-old male who presently feels well. He describes a good appetite without any significant heartburn or dysphagia. He reports that his bowel movements have been regular. He does describe a history of an anal fissure with occasional tenderness and bleeding with bright red blood, but in general this is not particularly problematic. He denies any other bleeding with bowel movements nor any melena. He denies abdominal pain, jaundice, nor unintentional weight loss. He denies any known family history of colorectal cancer. He has never had a colonoscopy nor done any stool testing such as a Cologuard or Hemoccult testing. * ROS:?General/Constitutional:?Change in appetite?denies.?Chills?denies.?Fatigue?denies.?Ophthalmologic:?Comments?all negative.?ENT:?Comments?all negative.?Respiratory:?hemoptysis?denies.?Cough?denies.?Cardiovascular:?Chest pain?denies.?Orthopnea?denies.?Gastrointestinal:?Comments?See HPI for details.?Genitourinary:?Hematuria?denies.?Dysuria?denies.?Musculoskeletal:?Painful joints?denies.?Weakness?denies.?Skin:?Itching?denies.?Rash?denies.?Neurologic:?Headache?denies.?Seizures?denies.?Psychiatric:?Comments?all negative.? * Medical History:? * Surgical History:?Open heart surgery at age 12--anomalous pulmonary vein 1977Cardiac pacemeker/defibrillator * Hospitalization/Major Diagno stic Procedure:?No Hospitalization History. * Family History:?Father: dece ased, diagnosed with Heart disease.?Mother: alive, diagnosed with Diabetes.? No family history of colon cancer or liver cancer. * Social History:?Tobacco Use:?Tobacco Use/Smoking?Patient is a?nonsmoker.?Drugs/Alcohol:?Alcohol Screen?Did you have a drink containing alcohol in the past year??Yes,?How often did you have a drink containing alcohol in the past year??Monthly or less (1 point), How many drinks did you have on a typical day when you were drinking in the past year??1 or 2 drinks (0 point),?How often did you have 6 or more drinks on one occasion in the past year??Never (0 point),?Points?1,?Interpretation?Negative.?Miscellaneous:?Marital status: . Occupation: Retired teacher. ???Nonsmoker, no sig alcohol. * Medications:?TakingXarelto 2 0 MG Tablet Oral Losartan Potassium 50 MG Tablet Oral Fenofibrate 160 MG Tablet Oral Terbinafine HCl 250 MG Tablet TAKE 1 TABLET BY MOUTH EVERY DAY FOR 7 DAYS Oral Tamsulosin HCl 0.4 MG Capsule TAKE 1 CAPSULE BY MOUTH EVERYDAY AT BEDTIME Oral Carvedilol 25 MG Tablet Oral Furosemide 20 MG Tablet Oral Amiodarone HCl 100 MG Tablet Oral Vitamin D-3 25 MCG (1000 UT) Capsule 1 capsule Orally Once a day Taking Xarelto 20 MG Tablet Oral Taking Losartan Potassium 50 MG Tablet Oral Taking Fenofibrate 160 MG Tablet Oral Taking Terbinafine HCl 250 MG Tablet TAKE 1 TABLET BY MOUTH EVERY DAY FOR 7 DAYS Oral Taking Tamsulosin HCl 0.4 MG Capsule TAKE 1 CAPSULE BY MOUTH EVERYDAY AT BEDTIME Oral Taking Carvedilol 25 MG Tablet Oral Taking Furosemide 20 MG Tablet Oral Taking Amiodarone HCl 100 MG Tablet Oral Taking Vitamin D-3 25 MCG (1000 UT) Capsule 1 capsule Orally Once a day * Allergies:?Biaxin: Allergy - Criticality Highyes[Allergies Verified] Objective: * Vitals:?Wt:165lbs, Ht: 70 in , BMI:23.67Index, BP:001/01mm Hg, Temp:97.5, Ht-cm: 177.8, Wt-k.84. * Examination: ???General Examination: ?GENERAL APPEARANCE:?pleasant, well nourished, well developed, in no acute distress.?EYES:?sclera non-icteric.?ORAL CAVITY:?mucosa moist.?NECK/THYROID:?no cervical lymphadenopathy, neck supple.?SKIN:?nonjaundiced, no spider angiomata.?HEART:?S1, S2 normal.?LUNGS:?clear to auscultation bilaterally.?ABDOMEN:?normal bowel sounds, no guarding or rigidity, no guarding or rigidity, no masses palpable, soft, nontender, nondistended.?EXTREMITIES:?no edema.?NEUROLOGIC:?alert and oriented.? Assessment: * Assessment: 1.?Encounter for other prepr ocedural examination - Z01.818 (Primary)???2.?Colon cancer screening - Z12.11??? Overall, Alan appears well . He is not having any particularly new [...] He does have an appointment with his instructional assistant next month and we will obtain cardiology clearance for the procedure given the underlying cardiac history. He will also have a PAT appointment at the hospital. Alan was comfortable with this plan. Thank you again for allowing me to participate in Alan's care. I shall continue to keep you advised of his progress. Plan: * Treatment: Notes: Do not take Xarelto for 2 days before the colonoscopy Do not take the Furosemide on the day of the colonoscopy Need clearance from Inspector Elevators, Dr. Jefferson, in [place]--patient has an appt there in 11/2024. ? * Procedure Codes:?3017F COLOR ECTAL CA SCREEN DOC [id number] TOBACCO [id number] BP SCR NOT PRFRM REC REASON NOS * Preventive Medicine:? ??Screenings:?Fall Risk Screening?Fall Risk Assessment:?No falls in the past year,?Screening:?No falls in the past year,?Assessment:?Not performed, no reason specified,?Plan of Care:?Not documented, no reason specified.? * Follow Up:?prn * * Sign off status: Completed true * Provider:?Ion Mckeon MD Date:? 025 Generated for Devaughn jenkins/Di/eTransmitting on:?12/18/2024 02:35 PM EDT History and Physical Notes * HPI (History of Present Illness) Category Sub-Category Detail Notes Category Not es incontinence I saw Alan in the office today for evaluation of colorectal cancer screening. As you know, Alan is a 59-year-old male who presently feels well. He describes a good appetite without any significant heartburn or dysphagia. He reports that his bowel movements have been regular. He does describe a history of an anal fissure with occasional tenderness and bleeding with bright red blood, but in general this is not particularly problematic. He denies any other bleeding with bowel movements nor any melena. He denies abdominal pain, jaundice, nor unintentional weight loss. He denies any known family history of colorectal cancer. He has never had a colonoscopy nor done any stool testing such as a Cologuard or Hemoccult testing. Examination Category Sub-Category Detail Notes Category Not es General Examination GENERAL APPEARANCE: pleasant , well nourished, well developed, in no acute distress HEAD: EYES: sclera non-icteric EARS: NOSE: THROAT: NECK/THYROID: no cervical lymphade nopathy, neck supple HEART: S1, S2 normal CHEST: LUNGS: clear to auscultatio n bilaterally ABDOMEN: normal bowel sounds, no guarding or rigidity, no guarding or rigidity, no masses palpable, soft, nontender, nondistended NEUROLOGIC: alert and oriented SKIN: nonjaundiced, no spi jasmin angiomata EXTREMITIES: no edema PERIPHERAL PULSES: BACK: BREASTS: MUSCULOSKELETAL: MALE GENITOURINARY: LYMPH NODES: RECTAL EXAM: FEMALE GENITOURINARY: ORAL CAVITY: mucosa moist
== END 2024-12-18 12:49 | disposition home or self-care (01) ==
PROVIDERS: PCP Family Medicine; Visit Provider Urology
DX: N32.0 Bladder-neck obstruction (principal)
CPT/HCPCS: 99213

== ENCOUNTER → 2024-12-18 11:47 | Outpatient (BNVA) | payer OTHER, SELFPAY | PROVIDERS: PCP Family Medicine; Visit Provider Urology | DX: N32.0 Bladder-neck obstruction (principal) | CPT/HCPCS: 99212 ==

== ENCOUNTER 2025-01-30 13:38 | Outpatient (REF) | payer OTHER, SELFPAY ==
--- OUTSIDE RECORDS SUMMARY | 2025-01-30 14:10 | XMS_ITS | Clinical Summary ---
Author Organization 175 [facility] Address [address] [place] [address] Phone Care Team Providers Care Home And School Visitor Name Role Phone Sylvie Sesay MD Primary Care Provider [phone] Social History Tobacco Use Types Packs/Day Years [...] Info) Description 01/31/2025 11:00 AM EDT Appointment [facility] Pulmonary [address] [place] [phone] 04/09/2025 10:15 AM EDT Consult Orthopedic Surgery - [place] [address] [phone] Johnny Bernstein, DPIván [address] [address] Health Maintenance Due Date Last Done Comments [...] patient's age to complete this topic Insurance [facility] Care Teams Home And School Visitor Relationship Specialty Start Date End Date Sylvie Sesay MD [address] [facility] [address] [place] [phone] PCP - General Internal Medicine 01/09/25
[2025-01-30 14:52] LABS: Anion Gap 12 (12-20); Blood Urea Nitrogen 19 mg/dL (9-16); Calcium 9.8 mg/dL (8.4-10.2); Carbon Dioxide 29 mmol/L (22-29); Chloride 104 mmol/L (96-108); Estimated Glomerular Filt Rate > 60; Glucose Random 117 mg/dL (60-115); Potassium 4.5 mmol/L (3.3-5.1); Sodium 140 mmol/L (135-145)
== END 2025-01-30 13:39 | disposition home or self-care (01) ==
LOC: HO.LAB 13:38
PROVIDERS: PCP Internal Medicine; Visit Provider Physician Assistant
DX: I42.8 Other cardiomyopathies (principal)
CPT/HCPCS: 36415; 80048

== ENCOUNTER 2025-02-13 07:33 | Day surgery (SDC) | payer OTHER, SELFPAY ==
[2025-01-30 12:35] VITALS: BP 108/55; PULSE 60; RESP 16; O2SAT 97; BMI 23.5
--- NOTE | 2025-01-30 13:11 | HO.ANESPROP2 ---
Documented by User: Enriqueta Dennis NP 02/12/25 14:39 HPI - Anesthesia Eval Consult details Narrative: 59yo M for Colonoscopy No recent illness No CP and mild MANCILLA with 1 flight of stairs Cardiac optimized. 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 Follows [facility] - PFT pending LILY with CPAP QHS PMFSH Active Problems Active Problems: All Active Problems Bladder outlet obstruction (Acute) Balanitis (Acute) Tinea cruris (Acute) Mass of thigh (Acute) Hypertension (Acute) Pacemaker (Acute ~1999) Past Medical History Medical History Anxiety Seasonal allergies Environmental allergies History of cardioversion Hx of myocardial infarction (~2011) 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 CHF (congestive heart failure) Heart disease Dilated cardiomyopathy Pilonidal cyst with abscess Tinea cruris Obstructive sleep apnea (adult) (pediatric) Paroxysmal atrial fibrillation Atrioventricular block, complete Pure hyperglyceridemia Other seasonal allergic rhinitis Gastro-esophageal reflux disease without esophagitis Nonrheumatic mitral (valve) insufficiency Encounter for screening for malignant neoplasm of colon BPH without urinary obstruction or lower urinary tract symptoms History of cardiac pacemaker History of kidney stones Pulmonary fibrosis, unspecified Dysphagia Primary hypertension Disorder of the skin and subcutaneous tissue, unspecified Mass of thigh Hypertension Pacemaker (~1999) Family History Family History Mother Diabetes Thyroid disease Father Heart disease Family history of problems with anesthesia: No Surgical History Surgical History Hx of oral surgery (~2022) History of open heart surgery (1969) History of Problems with Anesthesia: No Social History Social History Household Members: Spouse Housing: House Are you a primary medical care evaluation specialist to a significant other at home: No Do you presently have visiting nurse or other home services: No Alcohol intake: current Alcohol intake frequency: holidays/special occasions only Patient Tobacco Use Status: Never used Tobacco Use of substances other than those prescribed or required for medical reasons: No Have you been hit, kicked, punched, or otherwise hurt by someone within the past year? If so, by whom?: No Are you DNR?: No Advance Directives: No Advance Directives Information Provided: Yes Advance Directives on File: No Poor oral hygiene: Yes Meds Allergies Allergy/AdvReac Type Severity Reaction Status Date / Time clarithromycin [Biaxin] Allergy Severe had an DE Verified 01/30/25 13:54 after taking Biaxin, avoids all macrolides codeine Allergy Severe Hypotension Uncoded 01/29/25 16:18 Home Medications ?Medication ?Instructions ?Recorded ?Confirmed ?Last Taken ?Type amiodarone 100 mg tablet 100 mg PO DAILY 09/15/22 01/29/25 02/13/25 History furosemide 20 mg tablet 20 mg PO DAILY 09/15/22 01/29/25 Unknown History rivaroxaban 20 mg tablet (Xarelto) 20 mg PO QPM 09/15/22 01/29/25 02/10/25 History carvedilol 25 mg tablet 25 mg PO BID 09/04/24 01/29/25 02/13/25 History fenofibrate 160 mg tablet 160 mg PO DAILY 09/04/24 01/29/25 Unknown History cholecalciferol (vitamin D3) 25 25 mcg PO DAILY 01/29/25 01/29/25 Unknown History mcg (1,000 unit) capsule (Vitamin D3) sacubitril 24 mg-valsartan 26 mg 1 tab PO BID 01/29/25 01/29/25 Unknown History tablet (Entresto) Exam Height,Weight and Vital Signs: Height 5 ft 10 in Weight 74.389 kg Last Vital Signs Pulse 60 01/30/25 12:35 Resp 16 01/30/25 12:35 BP 108/55 L 01/30/25 12:35 Pulse Ox 97 01/30/25 12:35 O2 Del Method Room Air 01/30/25 12:35 Pertinent Lab Results Pertinent Lab Results: Laboratory Tests 12/07/24 01/30/25 08:00 13:48 WBC 5.3 Hgb 13.1 L Hct 36.4 L Plt Count 231 Sodium 140 Potassium 4.5 Chloride 104 Carbon Dioxide 29 BUN 19 H Creatinine 1.13 Narrative Narrative: ECHO 10/2024 1. LV moderately dilated. LV wall thickness is nml. Moderate global hypokinesis of LV contractility with regional variation. Overall LV sys function is moderately impaired with EF 35-40%. Indeterminate diastolic function. Nml LA pressures. Paradoxical septal motion c/w post-op status. LV trabeculation can be seen. 2. LA moderately dilated 3. RV mildly enlarged with moderately reduced systolic function 4. Mild to moderate aortic regurg 5. Mild mitral regurg 6. Moderate tricuspid regurg 7. No pulmo htn 8. No pericardial effusion ICD interrogation 12/2024 Ap-BVp Battery status ok Values in nml range RA lead output is 1V greater than threshold - consider adjusting Since last transmission, no new episodes 0% AT/AF burden Airway Mallampati Class: II TM Dist: >3cm Neck ROM: Full Denture: Upper and Lower Heart: RRR Lungs: CTAB Assessment and Plan Assessment Anesthesia Assessment: Anesthesia Plan Discussed and PAT Visit Final Anesthetic Review Family History of Problems with Anesthesia: No History of Problems with Anesthesia: No Documented by User: Mulu Glez MD 02/13/25 09:12 [facility], [facility] Past Medical History Medical History Anxiety Seasonal allergies Environmental allergies History of cardioversion Hx of myocardial infarction (~2011) 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 CHF (congestive heart failure) Heart disease Dilated cardiomyopathy Pilonidal cyst with abscess Tinea cruris Obstructive sleep apnea (adult) (pediatric) Paroxysmal atrial fibrillation Atrioventricular block, complete Pure hyperglyceridemia Other seasonal allergic rhinitis Gastro-esophageal reflux disease without esophagitis Nonrheumatic mitral (valve) insufficiency Encounter for screening for malignant neoplasm of colon BPH without urinary obstruction or lower urinary tract symptoms History of cardiac pacemaker History of kidney stones Pulmonary fibrosis, unspecified Dysphagia Primary hypertension Disorder of the skin and subcutaneous tissue, unspecified Mass of thigh Hypertension Pacemaker (~1999) Family History Family History Mother Diabetes Thyroid disease Father Heart disease Surgical History Surgical History Hx of oral surgery (~2022) History of open heart surgery (1969) Social History Social History Household Members: Spouse Housing: House Are you a primary medical care evaluation specialist to a significant other at home: No Do you presently have visiting nurse or other home services: No Alcohol intake: current Alcohol intake frequency: holidays/special occasions only Patient Tobacco Use Status: Never used Tobacco Use of substances other than those prescribed or required for medical reasons: No Have you been hit, kicked, punched, or otherwise hurt by someone within the past year? If so, by whom?: No Are you DNR?: No Advance Directives: No Advance Directives Information Provided: Yes Advance Directives on File: No Poor oral hygiene: Yes Meds Allergies Allergy/AdvReac Type Severity Reaction Status Date / Time clarithromycin [Biaxin] Allergy Severe had an DE Verified 01/30/25 13:54 after taking Biaxin, avoids all macrolides codeine Allergy Severe Hypotension Uncoded 01/29/25 16:18 Home Medications ?Medication ?Instructions ?Recorded ?Confirmed ?Last Taken ?Type amiodarone 100 mg tablet 100 mg PO DAILY 09/15/22 01/29/25 02/13/25 History furosemide 20 mg tablet 20 mg PO DAILY 09/15/22 01/29/25 Unknown History rivaroxaban 20 mg tablet (Xarelto) 20 mg PO QPM 09/15/22 01/29/25 02/10/25 History carvedilol 25 mg tablet 25 mg PO BID 09/04/24 01/29/25 02/13/25 History fenofibrate 160 mg tablet 160 mg PO DAILY 09/04/24 01/29/25 Unknown History cholecalciferol (vitamin D3) 25 25 mcg PO DAILY 01/29/25 01/29/25 Unknown History mcg (1,000 unit) capsule (Vitamin D3) sacubitril 24 mg-valsartan 26 mg 1 tab PO BID 01/29/25 01/29/25 Unknown History tablet (Entresto) Exam Airway Loose/Missing/Broken Teeth: Yes, Upper and Lower Assessment and Plan Final Anesthetic Review NPO: Yes ASA Class: IV Final Preanesthetic Review: Meds/Allgs Chart Reviewed, Consent Obtained/Reviewed and Anes Risks/Benef Reviewed Patient Risk: High Procedure Risk: Low Anesthetic Plan Anesthetic Plan: MAC: Disposition: Standard PACU
--- OUTSIDE RECORDS SUMMARY | 2025-01-30 13:18 | XMS_ITS | Encounter Summary ---
Author Organization [employer] Address [address] [facility] 7t [place] [address] Care Team Providers Care Cardroom Manager Name Role Phone Unavailable Primary Care Provider Unavailabl e Reason for Visit * Reason Onset Date Comments Appointment 11/16/2022 Encounter Details Date Type Department Care Team (Late st Contact Info) Description 11/16/2022 Telephone [facility] [address] [place], [place] [phone] Vargas Pearson, DMD [address] [place] [address] Appointment Social History Tobacco Use Types Packs/Day [...]
--- OUTSIDE RECORDS SUMMARY | 2025-01-30 13:18 | XMS_ITS | Clinical Summary ---
Author Organization 175 [facility] Address [address] [place] [address] Phone Care Team Providers Care Shipmaster Name Role Phone Sylvie Sesay MD Primary Care Provider [phone] Social History Tobacco Use Types Packs/Day Years Used Date Smoking Tobacco: Never Assessed Sex and Gender Information Value Date Recorded Sex Assigned at Male 01/29/2025 1:33 PM EDT Legal Sex Male 6:59 PM EST Gender Identity Male 01/29/2025 1:33 PM EDT Sexual Orientation Not on file Plan of Treatment Upcoming Encounters Date Type Department Care Team (Late st Contact Info) Description 01/31/2025 11:00 AM EDT Appointment [facility] Pulmonary [address] [place] [phone] 04/09/2025 10:15 AM EDT Consult Orthopedic Surgery - [place] [address] [phone] Johnny Bernstein, DPIván [address] [address] Health Maintenance Due Date Last Done Comments DTaP,Tdap,and Td Vaccines (1 - Tdap) 1983 Pneumococcal Vaccine: 50+ Ye ars (1 of 2 - PCV) 1983 Pneumococcal Vaccine: Pediat rics (0 to 5 Years) and At-Risk Patients (6 to 64 Years) (1 of 2 - PCV) 1983 Zoster Vaccines (1 of 2) 2014 COVID-19 Vaccine (2023-2 5 season) 2024 RSV Immunization Adult Patie nts (1 - Risk 60-74 years 1-dose series) 2024 Cholesterol Screening (Lipid Panel) 01/09/2025 Colorectal Cancer Screening: Colonoscopy 01/09/2025 Depression Screening 01/09/2025 HIV Screening 01/09/2025 Hepatitis C Screening 01/09/2025 Social Influencers of Health Screening 01/09/2025 Influenza Vaccine (Season Ended) 2025 HIB Vaccines Aged Out No longer eligi [...] patient's age to complete this topic Insurance [facility] [place] [address] Care Teams Shipmaster Relationship Specialty Start Date End Date Sylvie Sesay MD [address] [facility] [address] [place] [phone] PCP - General Internal Medicine 01/09/25
--- OUTSIDE RECORDS SUMMARY | 2025-01-30 13:18 | XMS_ITS | Patient Health Record ---
Author Organization [facility] Address [address] [place] [phone] Care Team Providers Care Professor Of Historical Theology Name Role Phone Gabriel SERRATO, Juan Carlos Primary Care Provider oIn Martinez [phone] Allergies Allergen (clinical drug ingredient) Drug/Non Drug [...] Status Risk Notes Problem Colon cancer screening (Z12.11) Active confirmed Problem Pre-procedure evaluation check (248046397) Encounter for other preprocedural examination (Z01.818) Active confirmed Vital Signs Temperature 97.5 degrees Fahrenheit 10/31/2024 Blood pressure diastolic 01 mm Hg 10/31/2024 Height 70 in 10/31/2024 Blood pressure systolic 001 mm Hg 10/31/2024 Weight 165 lbs 10/31/2024 BMI 23.67 kg/m2 10/31/2024 Encounters Encounter Location Date Provider Diagnosis [facility] [address] [place] [phone] 10/31/2024 Ion Mckeon Colon cancer screeni ng Z12.11 and Encounter for other preprocedural examination Z01.818 [facility] [address] [place] [phone] 06/05/2024 Ion Mckeon [facility] [address] [place] [phone] 11/22/2024 Ion Mckeon Assessments Encounter Date Diagnosis (ICD Code) Assessment Notes Treatment Notes Treatment Clinical Notes Section Notes 10/31/2024 Colon cancer screening (ICD-10 - Z12.11) Do not take Xarelto for 2 days before the colonoscopy Do not take the Furosemide on the day of the colonoscopy Need clearance from Softball Player, Dr. Jefferson, in [place]--[facility] has an appt there in 11/2024. Overall, [...] He does have an appointment with his location and measurement technician next month and we will obtain cardiology [...] He does have an appointment with his location and measurement technician next month and we will obtain cardiology [...] Provider Name:Ion Mckeon , 02/13/2025 08:30:00 AM, [address] [place] [address] , [place], [place], [phone], Insurance Providers Payer Name Payer Address Payer Phone Subscriber Number Group Number Insured Name Patient Relationship to Insured Coverage Start Date Coverage End Date [facility] [address] [address] [place], [place] [id number] ALAN SUTHERLAND Self - patient is the insured Medical (General) History Medical History History ICD Code [place] x 2--approx 2007--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
--- OUTSIDE RECORDS SUMMARY | 2025-01-30 13:18 | XMS_ITS | Clinical Summary ---
Author Organization [employer] Address [address] [facility] 7t [place] [address] Care Team Providers Care Polytechnic Teacher Name Role Phone Unavailable Primary Care Provider [...] Panel 1964 SDOH Screening 1965 Sigmoidoscopy 1964 Disability Screening 1964 Alcohol/Substance Use Screening 1976 Hepatitis C [...] patient's age to complete this topic Insurance [facility] MEDICAID STAND ADULT
--- OUTSIDE RECORDS SUMMARY | 2025-01-30 13:18 | XMS_ITS | Encounter Summary ---
Author Organization [employer] Address [address] [facility] 7t [place] [address] Care Team Providers Care Extrusion Operator Name Role Phone Unavailable Primary Care Provider Unavailabl e Reason for Visit * Reason Onset Date Comments Appointment 02/17/2023 Encounter Details Date Type Department Care Team (Late st Contact Info) Description 02/17/2023 Telephone [facility] [address] [place] [address] Hugo Truong, HERONS [address] [place] [address] Appointment Social History Tobacco Use Types Packs/Day [...]
--- OUTSIDE RECORDS SUMMARY | 2025-01-30 13:18 | XMS_ITS ---
Author Organization [facility] Address [address] [place] [phone] Care Team Providers Care Master Tax Advisor Name Role Phone Gabriel SERRATO, Juan Carlos Primary Care Provider Unavailab Ion Delarosa [phone] REASON FOR VISIT Patient presents today for a screening colonoscopy Encounters Encounter Location Date Provider Diagnosis [facility] [address] [facility] [address] [place] [phone] 06/05/2024 Ion Mckeon Plan Of Treatment Next Appt Details Provider Name:Ion Mckeon , 02/13/2025 08:30:00 AM, [address] [place] [address] , [place], [place], [phone], Progress Notes * SHAYARMANIKOLEDOB:1965 (59 yo M)Acc No.[id number]:06/05/2024 Progress Notes Patient:?KIM SUTHERLAND Provider:?Ion Mckeon MD :1965???Age:59 Y???Sex:Male Marcus e:06/05/2024 Address:[address] [place] [address] [address] [facility] Pcp:Juan Carlos Rios MD Subjective: * Chief [...] MD Date:? 024 Generated for Devaughn jenkins/Di/Singh on:?01/30/2025 01:18 PM EDT
--- OUTSIDE RECORDS SUMMARY | 2025-01-30 13:18 | XMS_ITS ---
Author Organization [facility] Address [address] [place] [phone] Care Team Providers Care Auriculotherapist Name Role Phone Juan Carlos Rois MD Primary Care Provider Unavailab Ion Delarosa [phone] REASON FOR VISIT office note lock please Encounters Encounter Location Date Provider Diagnosis [facility] [address] [place] [phone] 11/22/2024 Ion Mckeon Plan Of Treatment Next Appt Details Provider Name:Ion Mckeon , 02/13/2025 08:30:00 AM, [address] [place] [address] , [place], [place], [phone], Progress Notes * KIM SUTHERLANDDOB:1965 (59 yo M)Acc No.[id number]:11/22/2024 Patient:?KIM SUTHERLAND :1965???Age:59 Y???Sex:Male Address:[place], [address] * true * Date:? Generated for Printi ng/Fahig/eTransmitting on:?01/30/2025 01:18 PM EDT
--- OUTSIDE RECORDS SUMMARY | 2025-01-30 13:19 | XMS_ITS ---
Author Organization [facility] Address [address] [place] [address] Care Team Providers Care Proof Coins Inspector Name Role Phone Juan Carlos Rios MD Primary Care Provider Ion Martinez [phone] Allergies Allergen (clinical drug ingredient) Drug/Non Drug [...] (Z12.11) Active confirmed Problem Pre-procedure evaluation check (498730156) Encounter for other preprocedural examination (Z01.818) Active confirmed Vital Signs Temperature 97.5 degrees Fahrenheit 10/31/19 25 Blood pressure systolic 001 mm Hg 10/31/19 25 Blood pressure diastolic 01 mm Hg 025 Height 70 in 10/31/2024 Weight 165 lbs 10/31/2024 BMI 23.67 kg/m2 10/31/2024 Encounters Encounter Location Date Provider Diagnosis [facility] [address] [place] [address] 10/31/2024 Ion Mckeon Colon cancer screeni ng Z12.11 and Encounter for other preprocedural examination Z01.818 Assessments Encounter Date Diagnosis (ICD Code) Assessment Notes Treatment Notes Treatment Clinical Notes Section Notes 10/31/2024 Colon cancer screening (ICD-10 - Z12.11) Do not take Xarelto for 2 days before the colonoscopy Do not take the Furosemide on the day of the colonoscopy Need clearance from Coke Inspector, Dr. [facility], in [place]--jose martin salvador has an appt there in [...] He does have an appointment with his pulmonary fellow next month and we will obtain cardiology [...] He does have an appointment with his pulmonary fellow next month and we will obtain cardiology [...] day of the colonoscopy Need clearance from Coke Inspector, Dr. [facility], in [place]--patient has an appt there in 11/2024. Future Test Test Name Order Date COLONOSCOPY 10/31/2024 Next Appt Details Follow Up: prn, Reason: Provider Name:Ion Mckeon , 02/13/2025 08:30:00 AM, [address] [place] [address], [phone], Progress Notes * ALAN SUTHERLANDDOB:1965 (59 yo M)Acc No.[id number]:10/31/2024 Progress Notes Patient:?ALAN SUTHERLAND Provider:?Ion Mckeon MD :1965???Age:59 Y???Sex:Male Marcus e:10/31/2024 Address:[facility] [address] [facility] Pcp:Juan Carlos Rios MD Subjective: * Chief [...] He does have an appointment with his pulmonary fellow next month and we will obtain cardiology [...] day of the colonoscopy Need clearance from Coke Inspector, Dr. [facility], in [place]--patient has an appt there in 11/2024. ? * Procedure Codes:?3017F COLOR ECTAL CA SCREEN DOC [id number] TOBACCO NON-[id number] BP SCR NOT PRFRM REC REASON NOS * Preventive Medicine:? ??Screenings:?Fall Risk Screening?Fall Risk Assessment:?No falls in the past year,?Screening:?No falls in the past year,?Assessment:?Not performed, no reason specified,?Plan of Care:?Not documented, no reason specified.? * Follow Up:?prn * * Sign off status: Completed true * Provider:?Ion Mckeon MD Date:? 025 Generated for Devaughn jenkins/Di/Singh on:?01/30/2025 01:18 PM EDT History and Physical Notes * [...]
[2025-02-13 07:47] VITALS: BP 101/32; PULSE 60; RESP 18; TEMP 37; O2SAT 96
[2025-02-13] MEDS: Lactated Ringers 1,000 ML 50 ML IVCONT (08:02)
[2025-02-13 09:38] VITALS: BP 95/40; PULSE 60; RESP 18; TEMP 36.1; O2SAT 98
--- NOTE | 2025-02-13 09:43 | PM.OP ---
Brief Operative Note Date of Service: 02/13/25 Pre-op diagnosis: Screening Post-op diagnosis: other (Polyps) Procedure: Colonoscopy to the cecum and TI with hot snare polypectomy at 40cm with 1 Resolution clip, and cold snare polypectomy in AC with 2 Resolution clips. Surgeon: Ion Mckeon MD Anesthesia: MAC Was an Graphic Design Intern used for this Procedure?: No Estimated blood loss (mL): 2.0 Pathology: other (A. Ascending colon polyp B. Polyp at 40cm) Condition: stable Disposition: PACU
[2025-02-13 09:52] VITALS: BP 106/48; PULSE 60; RESP 16; TEMP 36.1; O2SAT 96
--- NOTE | 2025-02-13 10:11 | OP_ITS ---
DATE OF SERVICE: 02/13/2025 SURGEON: Ion Mckeon MD INDICATIONS: The patient presents for evaluation of colorectal cancer screening. Full consent has been obtained from him for this, including risks of bleeding and perforation. PREOPERATIVE DIAGNOSIS: Colorectal cancer screening. POSTOPERATIVE DIAGNOSIS: PROCEDURE PERFORMED: Colonoscopy to the cecum and terminal ileum with hot snare polypectomy x2 with placement of resolution clips. ESTIMATED BLOOD LOSS: COMPLICATIONS: ANESTHESIA: Medication used, monitored anesthesia care. ASSISTANTS: SPECIMENS: POSTOPERATIVE DIAGNOSES: Colorectal cancer screening, colon polyps, diverticulosis, and internal hemorrhoids. DESCRIPTION OF PROCEDURE: The patient was placed in the left lateral decubitus position. The digital rectal exam revealed no abnormalities. The Olympus video pediatric colonoscope was entered into the rectum and advanced easily to the cecum. Once in the cecum, I did identify normal-appearing cecal pouch with appendiceal orifice and a normal-appearing ileocecal valve. The terminal ileum was cannulated and appeared normal. The scope was withdrawn back in the colon. The entire cecum and ileocecal valve appeared normal. The scope was then slowly withdrawn assessing all mucosal surfaces carefully. Preparation was excellent. In the distal ascending colon was a flat, but raised approximately 8 to 10 mm polyp, which was removed by cold snare polypectomy and recovered by suction. The polypectomy site appeared clean, without any sign of residual polyp nor significant bleeding. Two resolution clips were applied to the polypectomy site with good deployment and good hemostasis. At 40 cm was a grossly adenomatous polyp overlapping a fold measuring about 10 to 12 mm in diameter. This was removed by hot snare polypectomy and recovered by suction. The polypectomy site appeared clean, without any sign of residual polyp nor bleeding. A single resolution clip was applied to the polypectomy site with good deployment and good hemostasis. I did not visualize any other polyps, colitis, nor angiodysplasia. There was a mild amount of sigmoid diverticulosis. In the rectum the scope was retroflexed visualizing internal hemorrhoids, but no other pathology. The rectal mucosa appeared normal. The scope was straightened and withdrawn from the patient. He tolerated the procedure well and was returned to the recovery area in stable condition. IMPRESSION: 1. Colon polyps. 2. Diverticulosis. 3. Internal hemorrhoids. PLAN: The results of the pathology will be checked. I would recommend a repeat colonoscopy in 5 years. He will otherwise see me on a p.r.n. basis. He was advised to resume his Xarelto in 48 hours. MD MILES Donovan/WYATT / [id number] MTDD
== END 2025-02-13 10:22 | disposition home or self-care (01) ==
PROVIDERS: PCP Internal Medicine; Visit Provider Internal Medicine
PROC: 0DJD8ZZ Inspection of Lower Intestinal Tract, Via Natural or Artificial Opening Endoscopic (ICD-10-PCS; CPT 45378; principal; 2025-02-13 08:30)
DX: Z12.11 Encounter for screening for malignant neoplasm of colon (principal); D12.2 Benign neoplasm of ascending colon; D12.4 Benign neoplasm of descending colon; K57.30 Diverticulosis of large intestine without perforation or abscess without bleeding; K64.8 Other hemorrhoids; Q43.3 Congenital malformations of intestinal fixation; G47.33 Obstructive sleep apnea (adult) (pediatric); I48.91 Unspecified atrial fibrillation; I11.0 Hypertensive heart disease with heart failure; I50.9 Heart failure, unspecified; I25.2 Old myocardial infarction; Z95.0 Presence of cardiac pacemaker; Z79.01 Long term (current) use of anticoagulants; Z79.899 Other long term (current) drug therapy; Z99.89 Dependence on other enabling machines and devices; Z98.890 Other specified postprocedural states
CPT/HCPCS: 45385; 88305; J2003; J2704

== ENCOUNTER 2025-06-14 07:53 | Outpatient (REF) | payer OTHER, SELFPAY ==
--- OUTSIDE RECORDS SUMMARY | 2024-06-05 09:40 | XMS_ITS ---
Author Organization [facility] Address [address] [place] [phone] Care Team Providers Care Tongue And Groove Machine Feeder Name Role Phone Gabriel (RETIRED) Juan Carlos SERRATO Primary Care Provider Unavailable Ion Mckeon [phone] REASON FOR VISIT Patient presents today for a screening colonoscopy Encounters Encounter Location Date Provider Diagnosis [facility] [address] [place] [phone] 06/05/2024 Ion Mckeon Plan Of Treatment No Information Progress Notes * KIM SUTHERLANDDOB:1965 (60 yo M)Acc No.[id number]:06/05/2024 Progress Notes Patient: KIM SWEENEY Provider: Gurmeet Mckeon MD :1965 A ge:59 Y S ex:Male Date:06/05/2024 Address:[address] [place] [address] [facility] Pcp:Juan Carlos Rios (RETIRED) MD Subjective: * Chief Complaints: * 1 . Patient presents today for a screening colonoscopy. * Medical History: Objective: * Vitals: Assessment: Plan: * Treatment: * * The named appointment provid er may or may not be the originator of this progress note, and it is not deemed complete until electronically signed by the appointment provider. Sign off status: Pending * Provider: Gurmeet Mckeon MD Date: 0 06/05/2024 Generated for Devaughn jenkins/Di/eTransmitting on: 1 07:57 AM EDT
--- OUTSIDE RECORDS SUMMARY | 2025-02-13 04:30 | XMS_ITS ---
Author Organization [facility] Address [address] [place] [phone] Care Team Providers Care Provider Relations Consultant Name Role Phone Gabriel (RETIRED) Juan Carlos SERRATO Primary Care Provider Unavailable Ion Mckeon [phone] REASON FOR VISIT screening Encounters Encounter Location Date Provider Diagnosis [facility] [place] [address] [place] [phone] 02/13/2025 Ion Mckeon Colon cancer scree arcelia [...] Notes * KIM SUTHERLANDDOB:1965 (60 yo M)Acc No.[id number]:02/13/2025 COLON WITH MAC Patient: KIM SWEENEY Provider: Gurmeet Mckeon MD :1965 A ge:59 Y S ex:Male Date:02/13/2025 Address:[address] [place], [place] [address] [facility] Pcp:Juan Carlos Rios (RETIRED) MD Subjective: * [...] 0 02/13/2025 Generated for Devaughn jenkins/Di/Singh on: 1 07:56 AM EDT
--- NOTE | ~2025-06-14 | US_ITS ---
CLINICAL HISTORY: R39.12 - Poor urinary stream US bladder Comparison: None provided Findings: The urinary bladder is unremarkable. Prevoid volume 846 mL. Post void volume 588 mL. Bilateral ureteral jets visualized. Impression: Postvoid residual 588 mL Ultrasound prostate gland Comparison: None provided Findings: Enlarged heterogeneous prostate with calcification. No specific focal nodule is identified. Prostate measures 4.7 x 2.9 x 4.9 cm. Prostate volume: 34.5 mL Impression: Heterogeneous enlarged prostate This document has been electronically signed by: Christian Santiago MD on 06/14/2025 19:37:54
--- OUTSIDE RECORDS SUMMARY | 2025-06-14 07:56 | XMS_ITS | Encounter Summary ---
Author Organization [facility] Address [address] [place] [address] Phone Care Team Providers Care Fire Sprinkler Apparatus Inspector Name Role Phone Juan Carlos Rios MD Primary Care Provider Sylvie Sesay MD Primary Care Provider + Encounter Details Date Type Department Care Team (Late st Contact Info) Description 03/03/2020 Ancillary Orders Non-Invasive Cardiology [address] [place] [address] Ramirez Kennedy MD [address] [place] [address] [email or web address] Syncope and collapse Social History Tobacco Use Types Packs/Day Years Used Date Smoking Tobacco: Former Smokeless Tobacco: Never Sex and Gender Information Value Date Recorded Sex Assigned at Not on file Legal Sex Male 6:09 PM EST Gender Identity Not on file Sexual Orientation Not on file documented as of this encounter Plan of Treatment Upcoming Encounters Date Type Department Care Team (Late st Contact Info) Description 07/29/2025 11:00 AM EST Office Visit [facility] [address], [address] [place] [address] Ion Guillaume MD, [place] 22 [facility], [address] [address] documented as of this encounter Results * DEVICE CHECK: ICD IN-HOME INTERROGATION (06/02/2020 11:35 AM EDT) Narrative Ramirez Kennedy MD - 06/04/2020 1:42 PM EDT Reason for appointment: Remote ICD interrogation HPI: Routine 3 month remote ICD interrogation. No device related complaints. Indication for device: Syncope Examination: Device type: BiV ICD Splunk Architect: Medtronic Mode: DDD LRL/URL: 60/130 bpm Thresholds, impedances, and sensing stable. Mode switches: 0 High V rates: 0 Atrial pacin.7% Ventricular pacin.7% Battery: 2.2 yrs Additional comments: Device functioning appropriately. Normal device function. Patient to follow-up for continued monitoring every 3 months. Report prepared by Judie De Oliveira RN Ramirez Kennedy MD [facility] ORDER MARILU Final Result documented in this encounter Visit Diagnoses Diagnosis Syncope and collapse Syncope and collapse documented in this encounter Care Teams Fire Sprinkler Apparatus Inspector Relationship Specialty Start Date End Date Juan Carlos Rios MD [address] [place] [address] [address] PCP - General 06/30/17 12/16/24 Sylvie Sesay MD [address] [place] [address] [address] [place] [address] PCP - General Internal Medicine 12/17/24 documented as of this encounter Additional Source Comments The information contained in this document represents components of the legal health record. It is not the complete legal health record.[facility]
--- OUTSIDE RECORDS SUMMARY | 2025-06-14 07:56 | XMS_ITS | Patient Health Record ---
Author Organization [facility] Address [address] [place] [address] Care Team Providers Care Combiner Name Role Phone Gabriel (RETIRED) Juan Carlos SERRATO Primary Care Provider Unavailable Ion Mckeon Unavailable [phone] Allergies Allergen (clinical drug ingredient) Drug/Non Drug Allergy documented on EMR Reaction Allergy Type Onset Date Status Biaxin Unknown Drug Allergy Active Results Component Value Reference Range Notes Pathology Reviewed date:03/14/2025 12:41:03 AM Interpretation: Performing Lab:[facility], [address] [place] [phone] Notes/Report: Reason For Referral No Information Medications Medication [...] Status Risk Notes Problem Colon cancer screening (336235287) Colon cancer screening (Z12.11) Active confirmed Problem Pre-procedure evaluation check (444687067) Encounter for other preprocedural examination (Z01.818) Active confirmed Vital Signs Temperature 97.5 degrees Fahrenheit 10/31/2024 Blood pressure diastolic 01 mm Hg 10/31/2024 Height 70 in 10/31/2024 Blood pressure systolic 001 mm Hg 10/31/2024 Weight 165 lbs 10/31/2024 BMI 23.67 kg/m2 10/31/2024 Encounters Encounter Location Date Provider Diagnosis [facility] [place] Out[place] [address] [place] [phone] 02/13/2025 Ion Mckeon Colon cancer screeni ng Z12.11 ; Colon polyp K63.5 ; Diverticulosis of colon K57.30 and Internal hemorrhoid K64.8 [facility] [address] [place] [phone] 10/31/2024 Ion Mckeon Colon cancer screeni ng Z12.11 and Encounter for other preprocedural examination Z01.818 [facility] [address] [place] [phone] 11/22/2024 Ion Mckeon [facility] [address] [place] [phone] 03/13/2025 Ion Mckeon Assessments Encounter Date Diagnosis (ICD Code) Assessment Notes Treatment Notes Treatment Clinical Notes Section Notes 02/13/2025 Colon cancer screening (ICD-10 - Z12.11) 02/13/2025 Colon polyp (ICD-10 - K63.5) 10/31/2024 Colon cancer screening (ICD-10 - Z12.11) Do not take Xarelto for 2 days before the colonoscopy Do not take the Furosemide on the day of the colonoscopy Need clearance from Electronic Lab Technician, Dr. Jefferson, in [place]-- patient has an appt there in 11/2024. Overall, [...] He does have an appointment with his accordion maker next month and we will obtain cardiology [...] He does have an appointment with his accordion maker next month and we will obtain cardiology clearance for the procedure given the underlying cardiac history. He will also have a PAT appointment at the hospital. Alan was comfortable with this plan. Thank you again for allowing me to participate in Alan's care. I shall continue to keep you advised of his progress. 02/13/2025 Diverticulosis of colon (ICD-10 - K57.30) 02/13/2025 Internal hemorrhoid (ICD-10 - K64.8) Plan Of Treatment Future Test Test Name Order Date COLONOSCOPY 10/31/2024 Insurance Providers Payer Name Payer Address Payer Phone Subscriber Number Group Number Insured Name Patient Relationship to Insured Coverage Start Date Coverage End Date [employer] [address] [address] [place], [place] [id number] [phone] [id number] ALAN SUTHERLAND Self - patient is the insured Medical (General) History Medical History History ICD Code CO x 2--approx 2007--Dr. 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
--- OUTSIDE RECORDS SUMMARY | 2025-06-14 07:56 | XMS_ITS | Encounter Summary ---
Author Organization [facility] Address [address] [facility] [address] [place] [address] Phone Care Team Providers Care Open End Spinning Operator Name Role Phone Juan Carlos Rios MD Primary Care Provider Sylvie Sesay MD Primary Care Provider + Encounter Details Date Type Department Care Team (Late st Contact Info) Description 06/16/2020 Ancillary Orders Non-Invasive Cardiology [address] [place] [address] Ramirez Kennedy MD [address] [place] [address] [email or web address] Complete heart block Social History Tobacco Use Types Packs/Day Years [...] Description 07/29/2025 11:00 AM EST Office Visit [facility] [address], [address] [place] [address] Ion Guillaume MD, [place] 22 [facility], [address] [address] [email or web address] documented as of this encounter Visit Diagnoses Diagnosis Complete heart block Atrioventricular block, complete documented in this encounter Care Teams Open End Spinning Operator Relationship Specialty Start Date End Date Juan Carlos Rios MD [address] [place] [address] [facility] [address] PCP - General 06/30/17 12/16/24 Sylvie Sesay MD [address] [place] [address] PCP - General Internal Medicine 12/17/24 documented as of this encounter Additional Source Comments The information contained in this document represents components of the legal health record. It is not the complete legal health record.[facility]
--- OUTSIDE RECORDS SUMMARY | 2025-06-14 07:56 | XMS_ITS | Encounter Summary ---
Author Organization [facility] Address [address] [place] [address] [place] [address] Phone Care Team Providers Care Senior Security Analyst Name Role Phone Juan Carlos Rios MD Primary Care Provider Sylvie Sesay MD Primary Care Provider + Encounter Details Date Type Department Care Team (Late st Contact Info) Description 08/16/2020 Procedure Pass Non-Invasive Cardiology [address] [place] [address] Social History Tobacco Use Types Packs/Day Years [...] Description 07/29/2025 11:00 AM EST Office Visit [facility] [address] [facility] 3rd Floor, [address] [place] [address] Ion Guillaume MD, MS 22 [facility], [address] [place] [address] documented as of this encounter Visit Diagnoses Not on filedocumented in this encounter Care Teams Senior Security Analyst Relationship Specialty Start Date End Date Juan Carlos Rios MD [address] [place] [address] [place] [address] PCP - General 06/30/17 12/16/24 Sylvie Sesay MD [address] [place] [address] PCP - General Internal Medicine 12/17/24 documented as of this encounter Additional Source Comments The information contained in this document represents components of the legal health record. It is not the complete legal health record.[facility]
--- OUTSIDE RECORDS SUMMARY | 2025-06-14 07:56 | XMS_ITS | Clinical Summary ---
Author Organization [facility] Address [address] [place] [phone] Phone Care Team Providers Care Advanced Practice Nurse Psychotherapist Name Role Phone Sylvie Sesay MD Primary Care Provider + Allergies Active Allergy Reactions Criticality Noted Date Comments Clarithromycin 07/11/2017 Medications cholecalciferol (VITAMIN D3) 1,000 unit tablet Take 1,000 Units by mouth daily. Active XARELTO 20 mg TabIndications:Me dication refill TAKE 1 TABLET BY MOUTH EVERY DAY WITH FOOD 30 tablet 8 1 Active furosemide (LASIX) 20 MG tabletIndications :Medication refill TAKE 1 TABLET BY MOUTH DAILY 30 tablet 6 1 Active fenofibrate (LOFIBRA) 160 MG tablet TAKE 1 TABLET BY MOUTH DAILY 30 tablet 6 1 Active amiodarone (PACERONE) 100 MG tabletIndications :Medication refill,Paroxysmal atrial fibrillation TAKE 1 TABLET BY MOUTH DAILY 30 tablet 6 1 Active carvedilol (COREG) 25 MG tablet TAKE 1 TABLET BY MOUTH TWICE DAILY WITH MEALS 60 tablet 6 1 Active clotrimazole-beta methasone (LOTRISONE) cream APPLY THIN COAT 2 TIMES PER DAY FOR 4 WEEKS 4 Active tamsulosin (FLOMAX) 0.4 mg Cap Take 0.4 mg by mouth nightly at bedtime. 5 Active ENTRESTO 24-26 mg per tablet 5 Active Active Problems Problem Noted Date Diagnosed Date Acute on chronic systolic heart failure 07/09/20 17 Complete heart block 07/09/2017 Congestive heart failure 07/09/2017 Dilated cardiomyopathy 07/09/[address] 07/09/2017 Paroxysmal atrial fibrillation 07/09/2017 Systolic heart failure 07/09/2017 Encounters Date Type Department Care Team Description 04/22/2025 3:20 PM EDT Office Visit [facility] [address], [address] [place] [address] Ion Guillaume MD, MS LILY on CPAP (Primary Dx); Dyspnea on exertion; Decreased diffusion capacity; H/O amiodarone therapy; Dilated cardiomyopathy; Chronic systolic heart failure from Last 3 Months Family History Medical History Relation Comments Sleep disorder Neg Hx Social History Tobacco Use Types Packs/Day Years Used Date Smoking Tobacco: Never Smokeless Tobacco: Never Tobacco Cessation:Counseling Given: Not Answered Alcohol Use Standard Drinks/Week Comments Yes 0 (1 standard drink = 0.6 oz pur e alcohol) 2 or fewer beers per month Education Answer Date Recorded Are you interested in more education? Not on tevin e 01/13/2023 Are you concerned about learning? Not on file 01/13/2023 No 01/13/2023 No 01/13/2023 Digital Access Answer Date Recorded No 02/06/2023 No 02/06/2023 Reliable internet access at home? Not on file 02/06/2023 Device with a working camera? Not on file Intimate Partner Violence Answer Date R ecorded Are you denied basic needs s uch as food, clothing, or medical care? No 11/23/2023 In the past 12 months have y ou been in a relationship with a person who hurts, threatens, or tries to control you? No 11/23/2023 Are you denied basic needs s uch as food, clothing, or medical care? No 11/23/2023 In the past 12 months have y ou been in a relationship with a person who hurts, threatens, or tries to control you? No 11/23/2023 Sex and Gender Information Value Date Recorded Sex Assigned at Not on file Legal Sex Male 6:09 PM EST Gender Identity Not on file Sexual Orientation Not on file Last Filed Vital Signs Vital Sign Reading Time Taken Comments Blood Pressure 100/58 04/22/2025 3:59 PM EDT Pulse 60 04/22/2025 3:59 PM EDT Temperature 36.1 C (97 F) 11/23/2023 7:50 AM EDT Respiratory Rate - - Oxygen Saturation 98% 04/22/2025 3:59 PM EDT Inhaled Oxygen Concentration - - Weight 75.3 kg (166 lb) 04/22/2025 3:59 PM EDT Height 177.8 cm (5' 10 ) 04/22/2025 3:59 PM EDT Body Mass Index 23.82 04/22/2025 3:59 PM EDT Plan of Treatment Upcoming Encounters Date Type Department Care Team (Late st Contact Info) Description 07/29/2025 11:00 AM EST Office Visit [facility] [address] [facility] 3rd Floor, [address] [place], [place] [id number] Ion Guillaume MD, MS 22 [facility], [address] [place] [address] [email or web address] Health Maintenance Due Date Last Done Comments ALT LEVEL (ALANINE AMINOTRANSFERASE) 1965 LIPID PANEL 1964 TSH LEVEL 1965 DEPRESSION SCREENING 1976 HEPATITIS C SCREENING 1982 HIV ONE-TIME SCREENING (18-65 YEARS) 1982 PNEUMOCOCCAL VACCINES (50+ years) (1 of 2 - PCV) 1983 COLOGUARD 2009 COLONOSCOPY 2009 COLORECTAL CANCER SCREENING 2009 FIT TEST 2009 FOBT 2009 SIGMOIDOSCOPY 2009 VIRTUAL COLONOSCOPY 2009 ZOSTER VACCINES (1 of 2) 2014 RSV VACCINE (1 - Risk 60-74 years 1-dose series) 2024 CREATININE LEVEL 11/21/2024 11/22/2023 INFLUENZA VACCINE (#1) 2025 , 07/08/2019, 06/24/2018, Additional history exists COVID-19 VACCINE (3 - 2024- season) 2025 12/01/2020, 10/24/2020 Adult Td,Tdap Booster 03/23/2028 03/23/2018 SMOKING STATUS SCREENING (Once After 26 Yrs) Completed 04/22/2025 HEPATITIS A VACCINES Aged Out No long er eligible based on patient's age to complete this topic HIB VACCINES Aged Out No longer eligi ble based on patient's age to complete this topic MENINGOCOCCAL VACCINES (ACWY) Aged Out No longer eligible based on patient's age to complete this topic MENINGOCOCCAL VACCINES (B) Aged Out N o longer eligible based on patient's age to complete this topic Medical Devices Implanted Type Area Document Clerk Device Identifier Shelf Expiration Date Model / Serial / Lot Envelope Tyrx Cardiac Lg Absorbable Antibacterial Sterile - [id number] Implanted:Qty: 1 on 11/23/2023 by William Watson MD at [facility] Collagen [employer] [id number] 04/08/2024 [id number] / / [id number] Medtronic Biv Icd ICD Defibrillator Cardioverter Emili Df1 [id number] [place] Xt Hf Loader Magazine Grinder-D Mri Surescan Titanium Polyurethane - [id number] Implanted:Qty: 1 on 11/23/2023 by William Watson MD at [facility] ICD Left: Chest Wall [employer] [id number] 03/09/2025 [id number] / [id number] / Procedures Procedure Name Priority Date/Time Associated Diagnosis Comments BASIC METABOLIC PANEL Routine 11/22/2023 9:25 AM EDT Paroxysmal atrial fibrillation from Last 3 Months or Most Recently Relevant to Health Maintenance Results * (ABNORMAL) Basic metabolic panel (11/22/2023 9:25 AM EDT) SODIUM 140 133 - 146 mmol/L [facility] CHLORIDE 104 96 - 108 mmol/L [facility] POTASSIUM 4.2 3.3 - 5.1 mmol/L [facility] CO2 29 21 - 35 mmol/L [facility] BUN 22(H) 6 - 19 mg/dL [facility] CREATININE 1.00 0.5 - 1.5 mg/dL [facility] GLUCOSE 107(H) 70 - 99 mg/dL [facility] CALCIUM 9.7 8.4 - 10.3 mg/dL [facility] EGFR 87 >59 mL/min/1.7 3m2 [facility] Comment:Estimated glomerular filtration rate calculated using the CKD-EPI refit equation. ANION GAP 11 10 - 20 mmol/L [facility] Blood 11/22/2023 9:25 AM EDT 11/22/2023 9:29 AM EDT us William Watson MD LAB BLOOD ORDERABLES Final Resu lt [address] [address] from Last 3 Months or Most Recently Relevant to Health Maintenance Insurance [employer] [facility] [place] TweetwallMARY [facility] [employer] O [employer] SuperTurboMARY [facility] [employer] SuperTur[employer]MARY [facility] Care Teams Advanced Practice Nurse Psychotherapist Relationship Specialty Start Date End Date Sylvie Sesay MD [address] [place] [address] PCP - General Internal Medicine 12/17/24 Additional Source Comments The information contained in this document represents components of the legal health record. It is not the complete legal health record.[facility]
--- OUTSIDE RECORDS SUMMARY | 2025-06-14 07:57 | XMS_ITS | Encounter Summary ---
Author Organization [email or web address] Address [address] [facility] 7t [place] [address] Care Team Providers Care Binding Cutter Synthetic Cloth Name Role Phone Unavailable Primary Care Provider Unavailabl e Reason for Visit * Reason Onset Date Comments Appointment 02/17/2023 Encounter Details Date Type Department Care Team (Late st Contact Info) Description 02/17/2023 Telephone [facility] [address] [place] [address] Hugo Truong, [place] [address] [place] [address] Appointment Social History Tobacco Use Types Packs/Day [...]
--- OUTSIDE RECORDS SUMMARY | 2025-06-14 07:57 | XMS_ITS | Encounter Summary ---
Author Organization [facility] Address [address] [facility] [address] [place] [address] Phone Care Team Providers Care People Manager Name Role Phone Juan Carlos Rios MD Primary Care Provider Sylvie Sesay MD Primary Care Provider + Encounter Details Date Type Department Care Team (Late st Contact Info) Description 02/26/2020 Ancillary Orders Non-Invasive Cardiology [address] [place] [address] Ramirez Kennedy MD [address] [place] [address] [email or web address] Heart block AV complete Social History Tobacco Use Types Packs/Day Years [...] Description 07/29/2025 11:00 AM EST Office Visit [facility] [address], [address] [place], [place] [id number] Ion Guillaume MD, MS 22 [facility], [address] [address] [email or web address] documented as of this encounter Results * DEVICE CHECK: ICD IN-HOME INTERROGATION PLUS HFM IMPEDANCE (02/27/2020 8:51 AM EDT) Narrative Ramirez Kennedy MD - 02/27/2020 5:02 PM EDT Reason for appointment: Remote ICD interrogation HPI: Routine 3 month remote ICD interrogation. No device related complaints. Indication for device: Dilated cardiomyopathy Examination: Device type: BiV ICD Inorganic Chemistry Teacher: Medtronic Mode: DDD LRL/URL: 60/130 bpm Thresholds, impedances, and sensing stable. Mode switches: 0 High V rates: 0 Atrial pacin% Ventricular pacin.1% Battery: 2.6 yrs Thoracic impedance: Additional comments: Device functioning appropriately. Normal device function. Patient to follow-up for continued monitoring every 3 months. Report prepared by Judie De Oliveira RN Procedure Note Ramirez Kennedy MD - 02/27/2020 Reason for appointment: Remote ICD interrogation HPI: Routine 3 month remote ICD interrogation. No device relatedcomplaints. Indication for device: Dilated cardiomyopathy Examination: Device type: BiV ICD Inorganic Chemistry Teacher: Medtronic Mode: DDD LRL/URL: 60/130 bpm Thresholds, impedances, and sensing stable. Mode switches: 0 High V rates: 0 Atrial pacin% Ventricular pacin.1% Battery: 2.6 yrs Thoracic impedance: Additional comments: Device functioning appropriately. Normal device function. Patient to follow-up for continued monitoringevery 3 months. Report prepared by Judie De Oliveira RN Ramirez Kennedy MD CV CARDIAC SERVICES ORDER MARILU Final Result documented in this encounter Visit Diagnoses Diagnosis Heart block AV complete Atrioventricular block, complete Heart block AV complete Atrioventricular block, complete documented in this encounter Care Teams People Manager Relationship Specialty Start Date End Date Juan Carlos Rios MD [address] [place] [address] [place] [address] PCP - General 06/30/17 12/16/24 Sylvie Sesay MD [address] [place] [address] PCP - General Internal Medicine 12/17/24 documented as of this encounter Additional Source Comments The information contained in this document represents components of the legal health record. It is not the complete legal health record.[facility]
--- OUTSIDE RECORDS SUMMARY | 2025-06-14 07:57 | XMS_ITS | Encounter Summary ---
Author Organization [employer] Address [address] [facility] 7t [place] [address] Care Team Providers Care Provider Scribe Name Role Phone Unavailable Primary Care Provider Unavailabl e Reason for Visit * Reason Onset Date Comments Appointment 11/16/2022 Encounter Details Date Type Department Care Team (Late st Contact Info) Description 11/16/2022 Telephone [facility] [address] [place], [place] [phone] Vargas Pearson, SHANIA [address] [place] [address] Appointment Social History Tobacco Use Types Packs/Day [...]
--- OUTSIDE RECORDS SUMMARY | 2025-06-14 07:57 | XMS_ITS | Clinical Summary ---
Author Organization [address] [facility] Address 175 [place] [address] Phone Care Team Providers Care Repacker Name Role Phone Sylvie Sesay MD Primary Care Provider [phone] Allergies No known active allergies Encounters Date Type Department Care Team Description 04/09/2025 10:15 AM EDT Consult Orthopedic Surgery [facility] [address] [phone] Johnny Bernstein DPM Pain in toes of both feet (Primary Dx); Ingrown toenail of both feet; Hammertoes of both feet; Bunion, right foot; Dermatophytosis, nail from Last 3 Months Social History Tobacco Use Types Packs/Day Years Used Date Smoking Tobacco: Never Assessed Sex and Gender Information Value Date Recorded Sex Assigned at Male 01/29/2025 1:33 PM EDT Legal Sex Male 6:59 PM EST Gender Identity Male 01/29/2025 1:33 PM EDT Sexual Orientation Not on file Plan of Treatment Upcoming Encounters Date Type Department Care Team (Late st Contact Info) Description 07/10/2025 9:45 AM EDT Office Visit Orthopedic Surgery [facility] [address] [phone] Johnny Bernstein DPM [address] [address] Health Maintenance Due Date Last Done Comments Zoster Vaccines (1 of 2) 2014 RSV Immunization Adult Patients (1 - Risk 60-74 years 1-dose series) 2024 Depression Screening 09/12/2024 Cholesterol Screening (Lipid Panel) 01/09/2025 Colorectal Cancer Screening: Colonoscopy 01/09/2025 HIV Screening 01/09/2025 Hepatitis C Screening 01/09/2025 Social Influencers of Health Screening 01/09/2025 Hypertension/CHF/CAD Annual BMP Blood Test 01/31/2025 Influenza Vaccine (#1) 2025 4, 06/01/2023, 06/03/2022, Additional history exists DTaP,Tdap,and Td Vaccines (2 - Td or Tdap) 03/23/2028 03/23/2018 MMR Vaccines Aged Out 11/24/2018, 10/05/2018 No lo nger eligible based on patient's age to complete this topic Pneumococcal Vaccine: 50+ Years Completed 07/27/2024 COVID-19 Vaccine Completed 04/05/2025, 11/2023, 11/15/2023, Additional history exists HIB Vaccines Aged Out No longer eligi [...] to complete this topic RSV Immunization Patients Under 20 months Aged Out No longer eligible based on patient's age to complete this topic Varicella Vaccines Aged Out No longer eligible based on patient's age to complete this topic Insurance [facility] Care Teams Repacker Relationship Specialty Start Date End Date Sylvie Sesay MD [address] [place] [phone] PCP - General Internal Medicine 01/09/25
--- OUTSIDE RECORDS SUMMARY | 2025-06-14 07:57 | XMS_ITS | Encounter Summary ---
Author Organization [facility] Address [address] [facility] [address] [place] [address] Phone Care Team Providers Care Automatic Pattern Edger Name Role Phone Juan Carlos Rios MD Primary Care Provider Sylvie Sesay MD Primary Care Provider + Encounter Details Date Type Department Care Team (Late st Contact Info) Description 07/02/2017 Ancillary Orders [facility] [address] [place] [address] Ramirez Kennedy MD 22 [place] [address] [email or web address] Social History Tobacco Use Types Packs/Day Years [...] Description 07/29/2025 11:00 AM EST Office Visit [facility] [address] [place] [address] 3rd Floor, [address] [place] [address] Ion Guillaume MD, MS 22 [facility], [address] [place] [address] [email or web address] documented as of this encounter Visit Diagnoses Not on filedocumented in this encounter Care Teams Automatic Pattern Edger Relationship Specialty Start Date End Date Juan Carlos Rios MD [address] [place] [address] [address] PCP - General 06/30/17 12/16/24 Sylvie Sesay MD [address] [place] [address] PCP - General Internal Medicine 12/17/24 documented as of this encounter Additional Source Comments The information contained in this document represents components of the legal health record. It is not the complete legal health record.[facility]
--- OUTSIDE RECORDS SUMMARY | 2025-06-14 07:57 | XMS_ITS | Clinical Summary ---
Author Organization [employer] Address [address] [facility] [address] 7t [place] [address] Care Team Providers Care Dental Appliance Repairer Name Role Phone Unavailable Primary Care Provider [...] 03/17/2022 09/16/2021 Dental X-Ray: Bitewings 09/17/2022 09/16/2021 RSV Patients and Patients Aged 60 years or older (1 - Risk 60-74 years 1-dose series) 2024 Tobacco Screening 07/11/2024 07/11/2023 Dental X-Ray: Full Mouth 09/17/2024 09/16/2021 COVID-19 Vaccine ( season) 2025 06/01/2023, 01/05/2023, 06/03/2022, Additional history exists Influenza Vaccine (#1) 2025 , 06/03/2022, 06/02/2021, Additional history exists DTaP/Tdap/Td Vaccines (2 - Td or Tdap) [...] patient's age to complete this topic Insurance [facility] MEDICAID STAND ADULT
--- OUTSIDE RECORDS SUMMARY | 2025-06-14 07:57 | XMS_ITS | Encounter Summary ---
Author Organization [facility] Address [address] [place] [address] Phone Care Team Providers Care Geothermal Plant Manager Name Role Phone Juan Carlos Rios MD Primary Care Provider [phone] Sylvie Sesay MD Primary Care Provider + Encounter Details Date Type Department Care Team (Late st Contact Info) Description 11/23/2023 Procedure [facility] [address] [place] [address] Social History Tobacco Use Types Packs/Day Years Used Date Smoking Tobacco: Never Smokeless Tobacco: Never Alcohol Use Standard Drinks/Week Comments Yes 0 [...] Description 07/29/2025 11:00 AM EST Office Visit [facility] [address] [place] [address] 3rd Floor, [address] [place] [address] Ion Guillaume MD, MS 22 [facility], [address] [place] [address] [email or web address] documented as of this encounter Visit Diagnoses Not on filedocumented in this encounter Care Teams Geothermal Plant Manager Relationship Specialty Start Date End Date Juan Carlos Rios MD [address] [place] [address] [address] PCP - General 06/30/17 12/16/24 Sylvie Sesay MD [address] [place] [address] [address] [place] [address] PCP - General Internal Medicine 12/17/24 documented as of this encounter Additional Source Comments The information contained in this document represents components of the legal health record. It is not the complete legal health record.[facility]
--- OUTSIDE RECORDS SUMMARY | 2025-06-14 07:57 | XMS_ITS | Encounter Summary ---
Author Organization [facility] Address [address] [place] [address] Phone Care Team Providers Care Architecture Manager Name Role Phone Juan Carlos Rios MD Primary Care Provider Sylvie Sesay MD Primary Care Provider + Encounter Details Date Type Department Care Team (Latest Contact Info) Description 07/02/2017 Ancillary Orders [facility] [address] 3[address] Floor, [address] [place] [address] Ramirez Kennedy MD 22 [place] [address] [email or web address] Diagnosis unknown Social History Tobacco Use Types Packs/Day Years [...] Description 07/29/2025 11:00 AM EST Office Visit [facility] [address], [address] [place] [address] Ion Guillaume MD, MS 22 [facility], [address] [address] documented as of this encounter Results * DEVICE CHECK: ICD IN-HOME INTERROGATION (10/21/2017 8:30 AM EST) Narrative Ramirez Kennedy MD - 10/25/2017 5:38 PM EST Reason for appointment: Remote ICD interrogation HPI: Routine 3 month remote ICD interrogation. No device related complaints. Indication for device NICM Examination: Device type: ICD Pantograph Watcher: MDLilly Thresholds, impedances, and sensing stable. Mode switches: 0 High V rates: 0 Alerts: 0 DDD 60/130 Atrial pacing 99.2 % of the time. Ventricular pacing 100 % of the time. Battery: Longevity is stable 6.1 yrs . Normal device function. Patient to follow-up for continued monitoring. Ramirez Kennedy MD [facility] C[facility]IAC SERVICES ORDER MARILU Final Result documented in this encounter Visit Diagnoses Diagnosis Diagnosis unknown Diagnosis unknown documented in this encounter Care Teams Architecture Manager Relationship Specialty Start Date End Date Juan Carlos Rios MD [address] [place] [address] Dr WYNN [address] [place] [address] PCP - General 06/30/17 12/16/24 Sylvie Sesay MD [address] [place] [address] PCP - General Internal Medicine 12/17/24 documented as of this encounter Additional Source Comments The information contained in this document represents components of the legal health record. It is not the complete legal health record.[facility]
--- OUTSIDE RECORDS SUMMARY | 2025-06-14 07:57 | XMS_ITS | Encounter Summary ---
Author Organization [facility] Address [address] [facility] [address] [place] [address] Phone Care Team Providers Care Change Management Facilitator Name Role Phone Juan Carlos Rios MD Primary Care Provider Sylvie Sesay MD Primary Care Provider + Encounter Details Date Type Department Care Team (Late st Contact Info) Description 08/16/2019 Ancillary Orders Non-Invasive Cardiology [address] [place] [address] Ramirez Kennedy MD 22 [place] [address] [email or web address] Complete heart block Social History Tobacco Use [...] Description 07/29/2025 11:00 AM EST Office Visit [facility] [address], [address] [place] [address] Ion Guillaume MD, MS 22 [facility], [address] [address] [email or web address] documented as of this encounter Results * DEVICE CHECK: ICD REMOTE INTERROGATION WITH LAST CODE STRIPER REVIEW (10/01/2019 12:16 PM EST) Narrative Ramirez Kennedy MD - 10/03/2019 4:07 PM EST Reason for appointment: Remote ICD interrogation HPI: Routine 3 month remote ICD interrogation. No device related complaints. Indication for device: Dilated Cardiomyopathy Examination: Device type: BiV ICD Senior Java Ui Developer: Medtronic Mode: DDD LRL/URL: 60/130 bpm Thresholds, impedances, and sensing stable. Mode switches: 40 episodes, mostly continuous from 09/28 - 09/29 when report was generated High V rates: 0 Atrial pacin.2% Ventricular pacin.9% Battery: 3.2 yrs Additional comments: Device functioning appropriately. I spoke w/Alan who is asymptomatic. Msg to Dr. Kennedy Normal device function. Patient to follow-up for continued monitoring every 3 months. Report prepared by Judie De Oliveira RN Ramirez Kennedy MD [facility] CARDIAC SERVICES ORDER MARILU Final Result documented in this encounter Visit Diagnoses Diagnosis Complete heart block Atrioventricular block, complete Complete heart block Atrioventricular block, complete documented in this encounter Care Teams Change Management Facilitator Relationship Specialty Start Date End Date Juan Carlos Rios MD [address] [place] [address] Dr WYNN [address] [place] [address] PCP - General 06/30/17 12/16/24 Sylvie Sesay MD [address] [place] [address] PCP - General Internal Medicine 12/17/24 documented as of this encounter Additional Source Comments The information contained in this document represents components of the legal health record. It is not the complete legal health record.[facility]
== END 2025-06-14 07:54 | disposition home or self-care (01) ==
LOC: HO.US 07:53
PROVIDERS: PCP Internal Medicine; Visit Provider Urology
DX: R39.12 Poor urinary stream (principal); N32.0 Bladder-neck obstruction
CPT/HCPCS: 76857

== ENCOUNTER → 2025-06-14 07:54 | Outpatient (BNV) | payer OTHER, SELFPAY | PROVIDERS: PCP Internal Medicine; Visit Provider Radiology Diagnostic Radiology | DX: N40.1 Benign prostatic hyperplasia with lower urinary tract symptoms (principal) | CPT/HCPCS: 76857 ==

== ENCOUNTER 2025-07-02 09:20 | Outpatient (REF) | payer OTHER, SELFPAY ==
[2025-07-02 11:57] LABS: Prostate Specific Antigen 0.66 ng/mL (<0.05-4.0)
== END 2025-07-02 09:21 | disposition home or self-care (01) ==
LOC: HO.10HDL 09:20
PROVIDERS: Visit Provider Urology
DX: Z12.5 Encounter for screening for malignant neoplasm of prostate (principal); N32.0 Bladder-neck obstruction
CPT/HCPCS: 36415; 84153

== ENCOUNTER 2025-07-10 09:27 | Outpatient (AMB) | payer OTHER, SELFPAY ==
--- OUTSIDE RECORDS SUMMARY | 2024-06-05 09:40 | XMS_ITS ---
Author Organization [facility] Address [address] [place] [phone] Care Team Providers Care Senior Drupal Developer Name Role Phone Gabriel (RETIRED) Juan Carlos SERRATO Primary Care Provider Unavailable Ion Mckeon [phone] REASON FOR VISIT Patient presents today for a screening colonoscopy Encounters Encounter Location Date Provider Diagnosis [facility] [address] [place] [phone] 06/05/2024 Ion Mckeon Plan Of Treatment No Information Progress Notes * KIM SUTHERLANDDOB:1965 (60 yo M)Acc No.[id number]:06/05/2024 Progress Notes Patient: KIM SWEENEY Provider: Gurmeet Mckeon MD :1965 A ge:59 Y S ex:Male Date:06/05/2024 Address:[address] [place] [address] [facility] Pcp:Juan Carlos Rios (RETIRED) MD Subjective: * [...] 06/05/2024 Generated for Devaughn jenkins/Di/eTransmitting on: 1 11:10 AM EDT
--- OUTSIDE RECORDS SUMMARY | 2025-02-13 04:30 | XMS_ITS ---
Author Organization [facility] Address [address] [place] [address] Care Team Providers Care Bottom Painter Name Role Phone Gabriel (RETIRED) Juan Carlos SERRATO Primary Care Provider Unavailable Ion Mckeon Unavailable [phone] REASON FOR VISIT screening Encounters Encounter Location Date Provider Diagnosis [facility] [place] [address] [place] [id number] 02/13/2025 Ion Mckeon Colon cancer scree arcelia [...] Notes * KIM SUTHERLANDDOB:1965 (60 yo M)Acc No.[id number]:02/13/2025 COLON WITH MAC Patient: KIM SWEENEY Provider: Gurmeet Mckeon MD :1965 A ge:59 Y S ex:Male Date:02/13/2025 Address:[address] [place], [place] [address] [place] [facility] Pcp:Juan Carlos Rios (RETIRED) MD Subjective: * Chief Complaints: * 1 . Screening. * Medical History: Objective: * Vitals: Assessment: * Assessment: 1. C olon cancer screening - Z12.11 (Primary) 2 . C olon polyp - K63.5 3 . D iverticulosis of colon - K57.30 4 . I nternal hemorrhoid - K64.8 Plan: * Treatment: * Procedure Codes: 4 5385 LESION REMOVAL COLONOSCOPY, Modifiers: PT * * The named appointment provid er may or may not be the originator of this progress note, and it is not deemed complete until electronically signed by the appointment provider. Sign off status: Pending * Provider: Gurmeet Mckeon MD Date: 0 02/13/2025 Generated for Devaughn jenkins/Di/Singh on: 11:09 AM EDT
--- NOTE | 2025-07-10 09:49 | A.OFFVIS_ITS ---
Intake Visit Reasons: 6M follow up/ US/ PSA/PVR Intake Note: Patient is Present follow up Ultrasound/PSA Urology Med: Tamsulosin, Clotrimazole Antibiotic Allergy:Biaxin Blood Thinner: Xarelto Last PVR: 0ml Todays PVR: 607ml Patient reports that Clotrimazole cream is no longer working. States that he has rash still present at tip of his penis. Patient reports some lower back pain and unable to fully empty bladder Rn Operating Room Required: No Accompanied by: Self / Same As Patient Allergies clarithromycin (Biaxin) Allergy (Severe, Verified 07/10/25 10:03) had an KS after taking Biaxin, avoids all macrolides codeine Allergy (Severe, Uncoded 07/10/25 10:03) Hypotension HPI Comments Details: Alan is a pleasant male. He is a patient of Dr. Rios. He seen for the following urologic conditions - balanitis - tinea cruris - lower urinary tract symptoms Six-month follow-up High PVR 600 cc On Xarelto 35 g prostate on bladder ultrasound - 500 cc residual Recommend prostate incision and may then benefit from bethanechol Cardiology and Nephrology have wanted to start him on Farxiga. 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 CHF (congestive heart failure) Heart disease Dilated cardiomyopathy Pilonidal cyst with abscess Tinea cruris Obstructive sleep apnea (adult) (pediatric) Paroxysmal atrial fibrillation Atrioventricular block, complete Pure hyperglyceridemia Other seasonal allergic rhinitis Gastro-esophageal reflux disease without esophagitis Nonrheumatic mitral (valve) insufficiency Encounter for screening for malignant neoplasm of colon BPH without urinary obstruction or lower urinary tract symptoms History of cardiac pacemaker History of kidney stones Pulmonary fibrosis, unspecified Dysphagia Primary hypertension Disorder of the skin and subcutaneous tissue, unspecified Mass of thigh Hypertension Pacemaker (~1999) Surgical History Hx of oral surgery (~2022) History of open heart surgery (1969) Family History Mother Diabetes Thyroid disease Father Heart disease Social History Household Members: Spouse Housing: House Are you a primary career professional to a significant other at home: No Do you presently have visiting nurse or other home services: No 75 years or older and lives alone: No Alcohol intake: current Alcohol intake frequency: holidays/special occasions only Patient Tobacco Use Status: Never used Tobacco Use of substances other than those prescribed or required for medical reasons: No Review of Systems Const Denies chills and Denies fever(s) Card Reports no additional complaints and Denies syncope Resp Denies cough GI Denies abdominal pain and Denies heartburn Reports as per HPI and Denies change in libido Neuro Denies syncope Psych Denies change in libido Endo Denies change in libido Physical Exam Const General: cooperative, healthy appearing, comfortable and no acute distress Orientation/consciousness: patient oriented x3 HEENT Face and sinus: Yes normal facial exam Mouth: moist mucous membranes Neck Neck: Yes normal visual inspection, Yes full ROM and Yes trachea midline Chest Chest palpation & inspection: normal inspection of the chest Resp Effort & Inspection: normal respiratory effort, able to speak in complete sentences and no respiratory distress GI Inspection: Yes normal to inspection Back/Spine/Pelvis Cervical Spine: normal cervical lordosis Thoracic/Lumbar Spine: thoracic and lumbar spine normal to inspection Skin General skin exam: no rashes or lesions noted Neuro General: patient oriented x3, gait normal, tone normal and moves all extremities Extrem General: Yes normal to inspection and Yes capillary refill normal Office Procedures Post Void Residual Post Residual Void Post Void Residual (PVR): [id number] Void Residual by ultrasound Assessment & Plan Assessment & Plan (1) Bladder outlet obstruction: Code(s): N32.0 - Bladder-neck obstruction Category: Medical Plan We discussed the nature of the decision and reasonable options for performing a prostate intervention. Interventions include TURP, GreenLight laser enucleation of the prostate, GreenLight laser ablation of the prostate, transurethral incision of the prostate, and I-Tend prostate procedure. Options such as medical therapy were discussed. The relative uncertainties and benefits related to each alternate procedure were adequately discussed. General surgical risks including, but not limited to, pain, bleeding, infection, myocardial infarction, pulmonary embolus, deep vein thrombosis and cerebrovascular accident which may result in further hospitalization were discussed. Full disclosure of the procedure as well as all major risks, benefits and complications were discussed including but not limited to damage to the urethra or bladder neck, recurrent BPH, retrograde ejaculation, bladder infection, urge, de abner frequency, incomplete emptying, dysuria, remote chance of erectile dysfunction, epididymitis, and meatal stenosis. The success rate of the procedure was discussed. Success of the procedure in the short-term does not necessarily guarantee that long-term success will be maintained. Suitable follow up will need to be maintained. The patient showed understanding of discussion. An opportunity was provided for questions to be answered and wishes to proceed with the following procedure. - prostate procedure - plasma button TUIP Orders: Orders AMB Post Void Residual by ultrasound Today N32.0 - Bladder-neck obstruction Patient Instructions: This note is constructed using voice recognition software. While every effort has been made to ensure accuracy band presser errors may have been included. Imaging studies, laboratory and physical exam results were discussed and reviewed in detail. No major barriers to patient understanding were identified. An opportunity to ask questions regarding the treatment plan was provided. All questions were answered. The patient expressed understanding and agreement with the above treatment plan. The patient is aware they should contact our office by phone for worsening of their current condition or the appearance of new urologic symptoms. Compliance is encouraged with any medications and followup testing that is ordered. It is a privilege to participate in the urologic care of your patient. If you have any questions or concerns regarding treatment for the above conditions, or other urologic issues, please do not hesitate to contact me. The office telephone contact is [phone]. Sincerely, Dr Olivier Whatley MD, [facility] - Urology Compassionate Specialist Care for the Genitourinary System Coding Level of Care Code Est Pt Level 4 (05104) Complex EM visit Add On G2211 Diagnoses Bladder outlet obstruction N32.0 CPT Codes Post Residual Void - PVR CPT Code: 17757-Eete Void Residual by ultrasound ([id number])
--- OUTSIDE RECORDS SUMMARY | 2025-07-10 11:09 | XMS_ITS | Clinical Summary ---
Author Organization [facility] Address [address] [place] [address] Phone Care Team Providers Care Bender Helper Name Role Phone Sylvie Sesay MD Primary [...] Description 04/22/2025 3:20 PM EDT Office Visit [facility] [address] 3rd Floor, [address] [place] [address] Ion Guillaume MD, MS LILY on CPAP [...] Description 07/29/2025 11:00 AM EST Office Visit [facility] [address] [facility] 3rd Floor, [address] [place], [place] [phone] Ion Guillaume MD, MS 22 [facility], [address] [place] [address] [email or web address] Health Maintenance Due Date Last Done Comments ALT LEVEL (ALANINE AMINOTRANSFERASE) 1964 LIPID PANEL 1964 TSH LEVEL 1964 DEPRESSION SCREENING 1976 HEPATITIS C SCREENING 1982 HIV ONE-TIME SCREENING (18-65 YEARS) 1982 PNEUMOCOCCAL VACCINES (50+ years) (1 of 2 - PCV) 1983 COLOGUARD 2009 COLONOSCOPY 2009 COLORECTAL CANCER SCREENING 2009 FIT TEST 2009 FOBT 2009 SIGMOIDOSCOPY 2009 VIRTUAL COLONOSCOPY 2009 RSV VACCINE (1 - Risk 50-74 years 1-dose series) 2014 ZOSTER VACCINES (1 of 2) 2014 CREATININE LEVEL 11/21/2024 11/22/2023 INFLUENZA VACCINE (#1) [...] this topic Medical Devices Implanted Type Area Pile Driver Operator Helper Device Identifier Shelf Expiration Date Model / Serial / Lot Envelope Tyrx Cardiac Lg Absorbable Antibacterial Sterile - [id number] Implanted:Qty: 1 on 11/23/2023 by William Watson MD at [facility] Collagen [employer] [id number] 04/08/2024 [id number] / / [id number] Medtronic Biv Icd ICD Defibrillator Cardioverter Emili Df1 [id number] Pyote Xt Hf Telephone Interceptor Operator-D Mri Surescan Titanium Polyurethane - [id number] Implanted:Qty: 1 on 11/23/2023 by William Watson MD at [facility] ICD Left: Chest Wall [employer] [place] [id number] 03/09/2025 [id number] / [id number] / Procedures Procedure Name Priority Date/Time Associated Diagnosis Comments BASIC METABOLIC PANEL Routine 11/22/2023 9:25 AM EDT Paroxysmal atrial fibrillation from Last 3 Months or Most Recently Relevant to Health Maintenance Results * (ABNORMAL) Basic metabolic panel (11/22/2023 9:25 AM EDT) SODIUM 140 133 - 146 mmol/L [facility] CHLORIDE 104 96 - 108 mmol/L [facility] POTASSIUM 4.2 3.3 - 5.1 mmol/L [facility] CO2 29 21 - 35 mmol/L [facility] BUN 22(H) 6 - 19 mg/dL [facility] CREATININE 1.00 0.5 - 1.5 mg/dL [facility] GLUCOSE 107(H) 70 - 99 mg/dL [facility] CALCIUM 9.7 8.4 - 10.3 mg/dL [facility] EGFR 87 >59 mL/min/1.7 3m2 [facility] Comment:Estimated glomerular filtration rate calculated using the CKD-EPI refit equation. ANION GAP 11 10 - 20 mmol/L [facility] Blood 11/22/2023 9:25 AM EDT 11/22/2023 9:29 AM EDT us William Watson MD LAB BLOOD ORDERABLES Final Resu lt [address] [address] from Last 3 Months or Most Recently Relevant to Health Maintenance Insurance [employer] [place] [id number] [facility] Care Teams Bender Helper Relationship Specialty Start Date End Date Sylvie Sesay MD [address] [place] [address] PCP - General Internal Medicine 12/17/24 Additional Source Comments The information contained in this document represents components of the legal health record. It is not the complete legal health record.[facility]
--- OUTSIDE RECORDS SUMMARY | 2025-07-10 11:10 | XMS_ITS | Patient Health Record ---
Author Organization [facility] Address [address] [place] [address] Care Team Providers Care Boiler Attendant Name Role Phone Gabriel (RETIRED) Juan Carlos SERRATO Primary Care Provider Unavailable Ion Mckeon Unavailable [phone] Allergies Allergen (clinical drug ingredient) Drug/Non Drug Allergy documented on EMR Reaction Allergy Type Onset Date Status Biaxin Unknown Drug Allergy Active Results Component Value Reference Range Notes Pathology Reviewed date:03/14/2025 12:41:03 AM Interpretation: Performing Lab:[facility], [address] [place] [id number] Notes/Report: Reason For Referral No Information Medications Medication SIG (Take, Route, Frequency, Duration) Notes Start Date End Date Status Tamsulosin HCl 0.4 MG TAKE 1 CAPSULE BY MOUTH EVERYDAY AT BEDTIME Oral; Duration: 90 Days Active Fenofibrate 160 MG Oral; Duration: 90 Days Active Terbinafine HCl 250 MG TAKE 1 TABLET BY MOUTH EVERY DAY FOR 7 DAYS Oral; Duration: 7 Days Active Xarelto 20 MG Oral; Duration: 30 Days Active Losartan Potassium 50 MG Oral; Duration: 90 Days Active Amiodarone HCl 100 MG Oral; Duration: 90 Days Active Vitamin D-3 25 MCG (1000 UT) 1 capsule Orally Once a day; Duration: 30 day(s) 10/31/2024 Active Carvedilol 25 MG Oral; Duration: 90 Days Active Furosemide 20 MG Oral; Duration: 90 Days Active Immunizations Vaccine Route Administration [...] Status Risk Notes Problem Colon cancer screening (259839307) Colon cancer screening (Z12.11) Active confirmed Problem Pre-procedure evaluation check (767130108) Encounter for other preprocedural examination (Z01.818) Active confirmed Vital Signs Temperature 97.5 degrees Fahrenheit 10/31/2024 Blood pressure diastolic 01 mm Hg 10/31/2024 Height 70 in 10/31/2024 Blood pressure systolic 001 mm Hg 10/31/2024 Weight 165 lbs 10/31/2024 BMI 23.67 kg/m2 10/31/2024 Encounters Encounter Location Date Provider Diagnosis [facility] Outpatient [address] [place] [phone] 02/13/2025 Ion Mckeon Colon cancer screeni ng Z12.11 ; Colon polyp K63.5 ; Diverticulosis of colon K57.30 and Internal hemorrhoid K64.8 [facility] [address] [place] [phone] 10/31/2024 Ion Mckeon Colon cancer screeni ng Z12.11 and Encounter for other preprocedural examination Z01.818 [facility] [address] [place] [phone] 11/22/2024 Ion Mckeon [facility] [address] [place] [phone] 03/13/2025 Ion Mckeon Assessments Encounter Date Diagnosis (ICD Code) Assessment Notes Treatment Notes Treatment Clinical Notes Section Notes 02/13/2025 Colon cancer screening (ICD-10 - Z12.11) 02/13/2025 Colon polyp (ICD-10 - K63.5) 10/31/2024 Colon cancer screening (ICD-10 - Z12.11) Do not take Xarelto for 2 days before the colonoscopy Do not take the Furosemide on the day of the colonoscopy Need clearance from [facility] Operator, Dr. Jefferson, in [place]-- patient has an appt there in 11/2024. [...] He does have an appointment with his singe winder next month and we will obtain cardiology [...] He does have an appointment with his singe winder next month and we will obtain cardiology [...] Insured Coverage Start Date Coverage End Date [facility] [address] [address] [place], [place] [id number] ALAN SUTHERLAND Self - patient is the insured Medical (General) History Medical History History ICD Code [place] x 2--2007--Dr. 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
--- OUTSIDE RECORDS SUMMARY | 2025-07-10 11:10 | XMS_ITS | Encounter Summary ---
Author Organization [facility] Address [address] [place] [address] [place] [address] Phone Care Team Providers Care Petroleum Engineer Name Role Phone Juan Carlos Rios MD Primary Care Provider Sylvie Sesay MD Primary Care Provider + Encounter Details Date Type Department Care Team (Late st Contact Info) Description 08/16/2020 Procedure Pass Non-Invasive Cardiology [address] [place] [address] Social History Tobacco Use Types Packs/Day Years [...] Description 07/29/2025 11:00 AM EST Office Visit [facility] [address] [facility] 3rd Floor, [address] [place] [address] Ion Guillaume MD, MS 22 [facility], [address] [place] [address] documented as of this encounter Visit Diagnoses Not on filedocumented in this encounter Care Teams Petroleum Engineer Relationship Specialty Start Date End Date Juan Carlos Rios MD [address] [place] [address] [place] [address] PCP - General 06/30/17 12/16/24 Sylvie Sesay MD [address] [place] [address] PCP - General Internal Medicine 12/17/24 documented as of this encounter Additional Source Comments The information contained in this document represents components of the legal health record. It is not the complete legal health record.[facility]
--- OUTSIDE RECORDS SUMMARY | 2025-07-10 11:10 | XMS_ITS | Clinical Summary ---
Author Organization [facility] Address 175 [place] [address] Phone Care Team Providers Care Multiple Sclerosis Nurse Name Role Phone Sylvie Sesay MD Primary Care Provider [phone] Allergies No known active allergies Encounters Date Type Department Care Team Description 04/09/2025 10:15 AM EDT Consult Orthopedic Surgery [facility] [address] [phone] Johnny Bernstein DPM Pain in toes of [...] Care Team (Late st Contact Info) Description 08/05/2025 9:15 AM EST Office Visit [facility] [address] [phone] Johnny Bernstein DPM [address] [place] [address] Health Maintenance Due Date Last Done Comments Colorectal Cancer Screening: Colonoscopy 1964 RSV Immunization Adult Patients (1 - Risk 50-74 years 1-dose series) 2014 Zoster Vaccines (1 of 2) 2014 Depression Screening 09/12/2024 Cholesterol Screening (Lipid Panel) 01/09/2025 HIV Screening 01/09/2025 Hepatitis C Screening [...] patient's age to complete this topic Insurance [facility] Care Teams Multiple Sclerosis Nurse Relationship Specialty Start Date End Date Sylvie Sesay MD [address] [phone] PCP - General Internal Medicine 01/09/25
--- OUTSIDE RECORDS SUMMARY | 2025-07-10 11:10 | XMS_ITS | Encounter Summary ---
Author Organization [facility] Address [address] [facility] [address] [place] [address] Phone Care Team Providers Care Miner Operator Name Role Phone Juan Cralos Rios MD Primary Care Provider Sylvie Sesay MD Primary Care Provider + Encounter Details Date Type Department Care Team (Late st Contact Info) Description 06/16/2020 Ancillary Orders Non-Invasive Cardiology [address] [place] [address] Ramirez Kennedy MD 22 [place] [address] [email or web address] Complete heart block Social History [...] Description 07/29/2025 11:00 AM EST Office Visit [facility] [address] [place] [address] 3rd Floor, [address] [place] [address] Ion Guillaume MD, MS 22 [facility], [address] [address] [email or web address] documented as of this encounter Visit Diagnoses Diagnosis Complete heart block Atrioventricular block, complete documented in this encounter Care Teams Miner Operator Relationship Specialty Start Date End Date Juan Carlos Rios MD [address] [place] [address] [facility] [address] PCP - General 06/30/17 12/16/24 Sylvie Sesay MD [address] [place] [address] PCP - General Internal Medicine 12/17/24 documented as of this encounter Additional Source Comments The information contained in this document represents components of the legal health record. It is not the complete legal health record.[facility]
--- OUTSIDE RECORDS SUMMARY | 2025-07-10 11:10 | XMS_ITS | Encounter Summary ---
Author Organization [facility] Address [address] [place] [address] Phone Care Team Providers Care Environmental Officer Name Role Phone Juan Carlos Rios MD Primary Care Provider Sylvie Sesay MD Primary Care Provider + Encounter Details Date Type Department Care Team (Latest Contact Info) Description 07/02/2017 Ancillary Orders [facility] [address] [place] 3rd [facility], [address] [place] [address] Ramirez Kennedy MD 22 [place] [address] [email or web address] Diagnosis unknown Social History Tobacco Use Types [...] Description 07/29/2025 11:00 AM EST Office Visit [facility] [address] [place] 3rd Floor, [address] [place] [address] Ion Guillaume MD, MS 22 [facility], [address] [address] documented as of this encounter Results * DEVICE CHECK: ICD IN-HOME INTERROGATION (10/21/2017 8:30 AM EST) Narrative Ramirez Kennedy MD - 10/25/2017 5:38 PM EST Reason for appointment: Remote ICD interrogation HPI: Routine 3 month remote ICD interrogation. No device related complaints. Indication for device NICM Examination: Device type: ICD Counter Top Maker: MDLilly Thresholds, impedances, and sensing stable. Mode [...] unknown documented in this encounter Care Teams Environmental Officer Relationship Specialty Start Date End Date Juan Carlos Rios MD [address] [place] [address] Dr WYNN [address] [place] [address] PCP - General 06/30/17 12/16/24 Sylvie Sesay MD [address] [place] [address] PCP - General Internal Medicine 12/17/24 documented as of this encounter Additional Source Comments The information contained in this document represents components of the legal health record. It is not the complete legal health record.[facility]
--- OUTSIDE RECORDS SUMMARY | 2025-07-10 11:10 | XMS_ITS | Encounter Summary ---
Author Organization [facility] Address [address] [facility] [address] [place] [address] Phone Care Team Providers Care Intelligence Group Supervisor Name Role Phone Juan Carlos Rios MD Primary Care Provider Sylvie Sesay MD Primary Care Provider + Encounter Details Date Type Department Care Team (Late st Contact Info) Description 03/03/2020 Ancillary Orders Non-Invasive Cardiology [address] [place] [address] Ramirez Kennedy MD 22 [place] [address] [email or web address] Syncope and collapse Social History Tobacco Use [...] Description 07/29/2025 11:00 AM EST Office Visit [facility] [address] [place] 3rd Floor, [address] [place] [address] Ion Guillaume MD, MS 22 [facility], [address] [address] [email or web address] documented as of this encounter Results * DEVICE CHECK: ICD IN-HOME INTERROGATION (06/02/2020 11:35 AM EDT) Narrative Ramirez Kennedy MD - 06/04/2020 1:42 PM EDT Reason for appointment: Remote ICD interrogation HPI: Routine 3 month remote ICD interrogation. No device related complaints. Indication for device: Syncope Examination: Device type: BiV ICD [employer] Sales: Medtronic Mode: DDD LRL/URL: 60/130 bpm Thresholds, [...] collapse documented in this encounter Care Teams Intelligence Group Supervisor Relationship Specialty Start Date End Date Juan Carlos Rios MD [address] [place] [address] [address] PCP - General 06/30/17 12/16/24 Sylvie Sesay MD [address] [place] [address] [address] [place] [address] PCP - General Internal Medicine 12/17/24 documented as of this encounter Additional Source Comments The information contained in this document represents components of the legal health record. It is not the complete legal health record.[facility]
--- OUTSIDE RECORDS SUMMARY | 2025-07-10 11:10 | XMS_ITS | Encounter Summary ---
Author Organization [facility] Address [address] [place] [address] Phone Care Team Providers Care Managing Director Name Role Phone Juan Carlos Rios MD Primary Care Provider [phone] Sylvie Sesay MD Primary Care Provider + Encounter Details Date Type Department Care Team (Late st Contact Info) Description 11/23/2023 Procedure Pass [facility] 30 [place] [address] Social History Tobacco Use Types Packs/Day Years [...] Description 07/29/2025 11:00 AM EST Office Visit [facility] [address] [place] [address] 3rd Floor, [address] [place] [address] Ion Guillaume MD, MS [address] [facility], [address] [place] [address] [email or web address] documented as of this encounter Visit Diagnoses Not on filedocumented in this encounter Care Teams Managing Director Relationship Specialty Start Date End Date Juan Carlos Rios MD [address] [place] [address] [address] PCP - General 06/30/17 12/16/24 Sylvie Sesay MD [address] [place] [address] [address] [place] [address] PCP - General Internal Medicine 12/17/24 documented as of this encounter Additional Source Comments The information contained in this document represents components of the legal health record. It is not the complete legal health record.[facility]
--- OUTSIDE RECORDS SUMMARY | 2025-07-10 11:10 | XMS_ITS | Encounter Summary ---
Author Organization [facility] Address [address] [facility] [address] [place] [address] Phone Care Team Providers Care Housekeeping And Laundry Team Leader Name Role Phone Juan Carlos Rios MD Primary Care Provider Sylvie Sesay MD Primary Care Provider + Encounter Details Date Type Department Care Team (Late st Contact Info) Description 07/02/2017 Ancillary Orders [facility] [address] [place] [address] Ramirez Kennedy MD 22 [place] [address] [email or web address] Social History Tobacco Use Types Packs/Day Years [...] Description 07/29/2025 11:00 AM EST Office Visit [facility] [address] [place] [address] 3rd Floor, [address] [place] [address] Ion Guillaume MD, MS 22 [facility], [address] [place] [address] [email or web address] documented as of this encounter Visit Diagnoses Not on filedocumented in this encounter Care Teams Housekeeping And Laundry Team Leader Relationship Specialty Start Date End Date Juan Carlos Rios MD [address] [place] [address] [address] PCP - General 06/30/17 12/16/24 Sylvie Sesay MD [address] [place] [address] PCP - General Internal Medicine 12/17/24 documented as of this encounter Additional Source Comments The information contained in this document represents components of the legal health record. It is not the complete legal health record.[facility]
--- OUTSIDE RECORDS SUMMARY | 2025-07-10 11:10 | XMS_ITS | Encounter Summary ---
Author Organization [facility] Address [address] [facility] [address] [place] [address] Phone Care Team Providers Care Regional Operations Manager Name Role Phone Juan Carlos Rios MD Primary Care Provider Sylvie Sesay MD Primary Care Provider + Encounter Details Date Type Department Care Team (Late st Contact Info) Description 08/16/2019 Ancillary Orders Non-Invasive Cardiology [address] [place] [address] Ramirez Kennedy MD 22 [place] [address] [email or web address] Complete heart block Social History Tobacco Use [...] Description 07/29/2025 11:00 AM EST Office Visit [facility] [address] [place] 3rd Floor, [address] [place], [place] [address] Ion Guillaume MD, MS 22 [facility], [address] [address] [email or web address] documented as of this encounter Results * DEVICE CHECK: ICD REMOTE INTERROGATION WITH STAPLE FIBER WASHER REVIEW (10/01/2019 12:16 PM EST) Narrative Ramirez Kennedy MD - 10/03/2019 4:07 PM EST Reason for appointment: Remote ICD interrogation HPI: Routine 3 month remote ICD interrogation. No device related complaints. Indication for device: Dilated Cardiomyopathy Examination: Device type: BiV ICD Hand Tube Bender: Medtronic Mode: DDD LRL/URL: 60/130 bpm Thresholds, [...] complete documented in this encounter Care Teams Regional Operations Manager Relationship Specialty Start Date End Date Juan Carlos Rios MD [address] [place] [address] Dr WYNN [address] [place] [address] PCP - General 06/30/17 12/16/24 Sylvie Sesay MD [address] [place] [address] PCP - General Internal Medicine 12/17/24 documented as of this encounter Additional Source Comments The information contained in this document represents components of the legal health record. It is not the complete legal health record.[facility]
--- OUTSIDE RECORDS SUMMARY | 2025-07-10 11:10 | XMS_ITS | Encounter Summary ---
Author Organization [facility] Address [address] [facility] [address] [place] [address] Phone Care Team Providers Care Bingo Caller Name Role Phone Juan Carlos Rios MD Primary Care Provider Sylvie Sesay MD Primary Care Provider + Encounter Details Date Type Department Care Team (Late st Contact Info) Description 02/26/2020 Ancillary Orders Non-Invasive Cardiology [address] [place] [address] Ramirez Kennedy MD 22 [place] [address] [email or web address] Heart block AV complete Social History Tobacco [...] Description 07/29/2025 11:00 AM EST Office Visit [facility] [address] 3rd Floor, [address] [place], [place] [address] Ion Guillaume MD, MS 22 [facility], [address] [address] [email or web address] documented as of this encounter Results * DEVICE CHECK: ICD IN-HOME INTERROGATION PLUS HFM IMPEDANCE (02/27/2020 8:51 AM EDT) Narrative Ramirez Kennedy MD - 02/27/2020 5:02 PM EDT Reason for appointment: Remote ICD interrogation HPI: Routine 3 month remote ICD interrogation. No device related complaints. Indication for device: Dilated cardiomyopathy Examination: Device type: BiV ICD Director Automotive: Medtronic Mode: DDD LRL/URL: 60/130 bpm Thresholds, [...] Dilated cardiomyopathy Examination: Device type: BiV ICD Director Automotive: Medtronic Mode: DDD LRL/URL: 60/130 bpm Thresholds, [...] complete documented in this encounter Care Teams Bingo Caller Relationship Specialty Start Date End Date Juan Carlos Rios MD [address] [place] [address] [place] [address] PCP - General 06/30/17 12/16/24 Sylvie Sesay MD [address] [place] [address] PCP - General Internal Medicine 12/17/24 documented as of this encounter Additional Source Comments The information contained in this document represents components of the legal health record. It is not the complete legal health record.[facility]
== END 2025-07-10 10:32 | disposition home or self-care (01) ==
LOC: HO.HUSH 09:27
PROVIDERS: PCP Family Medicine; Visit Provider Urology
DX: N32.0 Bladder-neck obstruction (principal)
CPT/HCPCS: 99214

== ENCOUNTER → 2025-07-10 09:27 | Outpatient (BNVA) | payer OTHER, SELFPAY | PROVIDERS: PCP Family Medicine; Visit Provider Urology | DX: N32.0 Bladder-neck obstruction (principal); N48.1 Balanitis | CPT/HCPCS: 51798; 99212 ==

== ENCOUNTER 2025-08-21 14:09 | Outpatient (AMB) | payer OTHER, SELFPAY ==
--- OUTSIDE RECORDS SUMMARY | 2025-02-13 03:30 | XMS_ITS ---
Author Organization [facility] Address [address] [place] [phone] Care Team Providers Care Web Ui Software Engineer Name Role Phone Gabriel (RETIRED) Juan Carlos SERRATO Primary Care Provider Unavailable Ion Mckeon [phone] REASON FOR VISIT screening Encounters Encounter Location Date Provider Diagnosis [facility] Outpatient [address] [place] [phone] 02/13/2025 Ion Mckeon Colon cancer scree arcelia Z12.11 ; Colon polyp K63.5 ; Diverticulosis of colon K57.30 and Internal hemorrhoid K64.8 Assessments Encounter Date Diagnosis (ICD Code) Assessment Notes Treatment Notes Treatment Clinical Notes Section Notes 02/13/2025 Colon cancer screening (ICD-10 - Z12.11) 02/13/2025 Colon polyp (ICD-10 - K63.5) 02/13/2025 Diverticulosis of colon (ICD-10 - K57.30) 02/13/2025 Internal hemorrhoid (ICD-10 - K64.8) Plan Of Treatment No Information Progress Notes * KIM SUTHERLANDDOB:1965 (60 yo M)Acc No.[id number]:02/13/2025 COLON WITH MAC Patient: KIM SWEENEY Provider: Gurmeet Mckeon MD :1965 A ge:59 Y S ex:Male Date:02/13/2025 Address:[address] [place], [place] [address] [facility] Pcp:Juan Carlos Rios (RETIRED) MD Subjective: * Chief Complaints: * S creening Assessment: * Assessment: 1. C olon cancer screening - Z12.11 (Primary) 2 . C olon polyp - K63.5 3 . D iverticulosis of colon - K57.30 4 . I nternal hemorrhoid - K64.8 Plan: * Procedure Codes: 4 5385 LESION REMOVAL COLONOSCOPY, Modifiers: PT Billing Information: * Procedure Codes: 63349 LESION REMOVAL COLONOSCOPY. Modifiers: PT * The named appointment provid er may or may not be the originator of this progress note, and it is not deemed complete until electronically signed by the appointment provider. Sign off status: Pending * Provider: Gurmeet Mckeon MD Date: 0 02/13/2025 Generated for Devaughn jenkins/Di/Caliitting on: 1 10/22/2024 10:06 PM EST
--- OUTSIDE RECORDS SUMMARY | 2025-08-20 10:12 | XMS_ITS | Encounter Summary ---
Author Organization [facility] Address [address] [facility] [address] [place] [id number] Phone Care Team Providers Care Scooter Mechanic Name Role Phone Sylvie Sesay MD Primary Care Provider + Encounter Details Date Type Department Care Team (Latest Contact Info) Description 08/20/2025 10:12 AM EST - 08/20/2025 11:59 PM [facility] Hospital Encounter [facility], X-Ray - [address] [address] Ion Guillaume MD, MS [address] [facility], [address] [place] [address] [email or web address] Arrived Discharge Disposition: Home or Self Care Social History Tobacco Use Types Packs/Day Years [...] on file documented as of this encounter Medications at Time of Discharge amiodarone (PACERONE) 100 MG tabletIndications: Medication refill,Paroxysmal atrial fibrillation TAKE 1 TABLET BY MOUTH DAILY 30 tablet 6 07/02/2021 carvedilol (COREG) 25 MG tablet TAKE 1 TABLET BY MOUTH TWICE DAILY WITH MEALS 60 tablet 6 07/02/2021 cholecalciferol (VITAMIN D3) 1,000 unit tablet Take 1,000 Units by mouth daily. clotrimazole-betam ethasone (LOTRISONE) cream APPLY THIN COAT 2 TIMES PER DAY FOR 4 WEEKS 09/06/2024 ENTRESTO 24-26 mg per tablet 03/16/2025 fenofibrate (LOFIBRA) 160 MG tablet TAKE 1 TABLET BY MOUTH DAILY 30 tablet 6 07/02/2021 furosemide (LASIX) 20 MG tabletIndications: Medication refill TAKE 1 TABLET BY MOUTH DAILY 30 tablet 6 07/02/2021 tamsulosin (FLOMAX) 0.4 mg Cap Take 0.4 mg by mouth nightly at bedtime. 09/13/2024 XARELTO 20 mg TabIndications:Med ication refill TAKE 1 TABLET BY MOUTH EVERY DAY WITH FOOD 30 tablet 8 03/17/2021 documented as of this encounter Plan of Treatment Upcoming Encounters Date Type Department Care Team (Late st Contact Info) Description 09/09/2025 3:00 PM EST Office Visit [facility] [address] [facility] [address], [address] [place], [place] [id number] Ion Guillaume MD, MS [address] [facility], [address] [place] [address] [email or web address] documented as of this encounter Procedures Procedure Name Priority Date/Time Associated Diagnosis Comments XR CHEST PA AND LATERAL 2 VIEWS Routine 08/20/2025 10:24 AM EST Dyspnea on exertion documented in this encounter Results * XR CHEST PA AND LATERAL 2 VIEWS (08/20/2025 10:24 AM EST) Anatomical Region Laterality Modality Chest Computed Radiogr aphy 08/20/2025 12:4 7 PM EST Impressions 08/20/2025 12:50 PM EST No acute pulmonary process demonstrated radiographically. CT of the chest recommended for further evaluation if there is continued clinical concern given reported history. Narrative 08/20/2025 12:50 PM EST XR CHEST PA AND LATERAL 2 VIEWS Referring clinician's provided indication for this examination in [facility]: Dyspnea on exertion; Dilated cardiomyopathy, rule out acute/chronic CHF; PAF on amiodarone, rule out pulmonary toxicity COMPARISON: [facility] CHEST PA AND LAT D089 ; [facility] PORTABLE CHEST [id number] ; [facility] CHEST PA and LAT A089 FINDINGS: Devices/Tubes/Lines: Cardiac device at the left chest with similarly positioning. Lungs: The lungs are similarly excluded.. No focal consolidation or pulmonary edema. Pleura: No pleural effusion or pneumothorax. Heart/Mediastinum: There is similar radiographic appearance of the cardiomediastinal silhouette. Bones/Soft Tissues: Multilevel degenerative changes of the spine. Procedure Note Esperanza Saleh MD - 08/20/2025 XR CHEST PA AND LATERAL 2 VIEWS Referring clinician's provided indication for this examination in [facility]:Dyspnea on exertion; Dilated cardiomyopathy, rule out acute/chronic CHF;PAF on amiodarone, rule out pulmonary toxicity COMPARISON: [facility] CHEST PA AND LAT D089 ; [facility] PORTABLE [id number] ; [facility] CHEST PA and LAT A089 FINDINGS: Devices/Tubes/Lines: Cardiac device at the left chest with similarlypositioning. Lungs: The lungs are similarly excluded.. No focal consolidation orpulmonary edema. Pleura: No pleural effusion or pneumothorax. Heart/Mediastinum: There is similar radiographic appearance of thecardiomediastinal silhouette. Bones/Soft Tissues: Multilevel degenerative changes of the spine. IMPRESSION: No acute pulmonary process demonstrated radiographically. CT of the chestrecommended for further evaluation if there is continued clinical concerngiven reported history. us Ion Guillaume MD, MS IMG XR CHEST Final Res ult documented in this encounter Visit Diagnoses Diagnosis Dyspnea on exertion Other dyspnea and respiratory abnormality documented in this encounter Care Teams Scooter Mechanic Relationship Specialty Start Date End Date Sylvie Sesay MD [address] [place] [address] PCP - General Internal Medicine 12/17/24 documented as of this encounter Additional Source Comments The information contained in this document represents components of the legal health record. It is not the complete legal health record.[facility]
--- NOTE | 2025-08-21 14:12 | A.OFFPC_ITS ---
Vital Signs 08/21/25 14:17 Height 5 ft 10 in Weight 169 lb BMI 24.2 BP 110/70 Blood Pressure Location Lt brachial Position Sitting Pulse 60 Pulse Source Pulse Oximeter Temp 97.3 F Temp Source Temporal Artery Scan Pulse Oximetry (%) 98 Oxygen Delivery Method Room Air Intake Visit Reasons: Rios pt/needs urgent referral for cardia rehab. Airline Station Agent Required: No Accompanied by: Self / Same As Patient Allergies clarithromycin (Biaxin) Allergy (Severe, Verified 08/21/25 14:14) had an NH after taking Biaxin, avoids all macrolides codeine Allergy (Severe, Uncoded 07/10/25 10:03) Hypotension Medication List - Last Reconciled 08/21/25 by Maldonado Fontenot MD amiodarone 100 mg PO DAILY carvedilol 25 mg PO BID cholecalciferol (vitamin D3) (Vitamin D3) 25 mcg PO DAILY clotrimazole-betamethasone 1-0.05 % 1 appl topical BID 4 weeks fenofibrate 160 mg PO DAILY furosemide 20 mg PO DAILY rivaroxaban (Xarelto) 20 mg PO QPM sacubitril-valsartan 24-26 mg (Entresto) 1 tab PO BID tamsulosin 0.4 mg PO BEDTIME 90 days Tobacco use date assessed: 08/21/25 Dental Screening Dental Screen Date: 08/21/25 Did you have a dental visit in the last 12 months?: Yes Did you have a dental problem in the last 6 months where you did not have access to dental care?: No HPI HPI Comments History of Present Illness Details The patient is a 60 year old male presenting for an annual physical and new patient visit. He has a history of congestive heart failure with an ejection fraction last known to be between 35-40%. He has a defibrillator, which was placed when his ejection fraction was below 30%, and is now noted to be 100% paced, indicating dependency. He also has a history of atrial fibrillation, for which he is on suppressive therapy but is currently out of AFib. 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 He is managed by a cancer registrar, a urologist for bladder issues where his bladder is not squeezing enough, and a fast food team member. For the past month and a half, he has been experiencing pressure in his head, behind his eyes, and extending to his neck and lower back. He reports chronic sinus issues and allergies, and the head pressure worsens when bending over. The pain is managed with Tylenol, which provides temporary relief. He reports an allergy to clarithromycin, which previously caused two small heart attacks. He had a recent colonoscopy which was normal. All his vaccinations are up to date. 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 - Carvedilol 25 mg twice a day for hyper tension and heart failure. - Fenofibrate 160 mg once a day for chol esterol. - Furosemide 20 mg once a day for conges tive heart failure. - Xarelto 20 mg once a day for atrial fi brillation. - Entresto 24/26 mg twice a day for hype rtension and heart failure. - Tamsulosin 0.4 mg every night for urin markel concerns. Family History: - Father had heart problems and fro m them. - No family history of cancer. Diagnostic Results: - Labs: Blood work from November this ye ar showed stable counts. - Procedures: A recent colonoscopy was n ormal. Social History: - Substance Use: He has never smoked. - Substance Use: He drinks alcohol very rarely, less than once a month. - Substance Use: He denies any use of ma rijuana, heroin, or cocaine. - Living Situation: [facility] - Mental Health: He reports good mood an d denies anxiety or depression, but has been seeing a therapist since the pandemic to help with psychological effects of quarantining. 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 [facility] Medical History (Updated 08/21/25 @ 14:49 by Maldonado Fontenot MD) Sinus pressure Annual physical exam Hyperlipidemia Anxiety Seasonal allergies Environmental allergies History of cardioversion Hx of myocardial infarction (~2011) 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 CHF (congestive heart failure) Heart disease Dilated cardiomyopathy Pilonidal cyst with abscess Tinea cruris Obstructive sleep apnea (adult) (pediatric) Paroxysmal atrial fibrillation Atrioventricular block, complete Pure hyperglyceridemia Other seasonal allergic rhinitis Gastro-esophageal reflux disease without esophagitis Nonrheumatic mitral (valve) insufficiency Encounter for screening for malignant neoplasm of colon BPH without urinary obstruction or lower urinary tract symptoms History of cardiac pacemaker History of kidney stones Pulmonary fibrosis, unspecified Dysphagia Primary hypertension Disorder of the skin and subcutaneous tissue, unspecified Mass of thigh Hypertension Pacemaker (~1999) Surgical History Hx of oral surgery (~2022) History of open heart surgery (1969) Family History (Updated 08/21/25 @ 14:23 by Millicent Walker MA) Mother Diabetes Thyroid disease Father Heart disease Social History Household Members: Spouse Housing: House Are you a primary floor care specialist to a significant other at home: No Do you presently have visiting nurse or other home services: No 75 years or older and lives alone: No Alcohol intake: current Alcohol intake frequency: holidays/special occasions only Patient Tobacco Use Status: Never used Tobacco e-Cigarette/Vaping Use: Never Used Current occupational status: retired Cognitive needs: No Hearing needs: No Vision needs: Yes (rx glasses) Questionnaire PHQ-9 Over the last 2 weeks, how often have you been bothered by any of the following problems? 1. Little interest or pleasure in doing things: not at all 2. Feeling down, depressed, or hopeless: not at all 3. Trouble falling or staying asleep, or sleeping too much: not at all 4. Feeling tired or having little energy: not at all 5. Poor appetite or overeating: not at all 6. Feeling bad about yourself - or that you are a failure or have let yourself or your family down: not at all 7. Trouble concentrating on things, such as reading the newspaper or watching television: not at all 8. Moving or speaking so slowly that other people could have noticed. Or the opp osite - being so fidgety or restless that you have been moving around a lot more than usual: not at all 9. Thoughts that you would be better off or of hurting yourself in some way: not at all Total score: 0 Depression Screening Interpretation: Negative Depression Screening Done: Yes 94368 - PHQ-9 Billing: Yes Source: Developed by Drs. Ion Augustine, Lashaun Castañeda, Rohan Rojas and colleagues, with an educational tomas from [email or web address]. Thrive Questionnaire Date Thrive assessed: 08/21/25 I am a: Patient What is your living situation today?: I have a steady place to live Within the past 12 months, did the food you bought not last and you didn't have the money to get more?: Never true Within the past 12 months, did you worry whether your food would run out before you got money to buy more?: Never true Do you have trouble paying for medicines?: No Do you have trouble getting transportation to medical appointments?: No Do you have trouble paying your heating and electricity bill?: No Do you have trouble taking care of your child, family member or friend?: No Do you have trouble with day-to-day activities such as bathing, preparing meals, shopping, managing finances, etc.?: No Are you currently unemployed and looking for a job?: No Are you interested in more education?: No THRIVE Score: 0 AUDIT C Alcohol Use Questionnaire (AUDIT-C) 1. How often do you have a drink containing alcohol?: Monthly or less 2. How many drinks containing alcohol do you have on a typical day when you are drinking?: 1 or 2 Total Score: 1 Score Reviewed/Action Taken: Yes WANDA-7 AMB Questionnaire WANDA-7 Date WANDA - 7 assessed: 08/21/25 Feeling nervous, anxious, or on edge: 0 = Not at all Not being able to stop or control worryin = Not at all Worrying too much about different things: 0 = Not at all Trouble relaxin = Not at all Being so restless that it is hard to sit still: 0 = Not at all Becoming easily annoyed or irritable: 0 = Not at all Feeling afraid as if something awful might happen: 0 = Not at all Total WANDA-7 score (0-4 normal; 5-9 mild; 10-14 moderate; 15-21 severe): 0 Source: Developed by Drs. Ion Augustine, Lashaun Castañeda, Rohan Rojas and colleagues, with an educational tomas from [email or web address]. WANDA-7 Assessment Billing WANDA-7 Assessment Tool: WANDA-7 Assessment 99237 Review of Systems Narrative - General: Denies pain. - Cardiovascular: Denies chest pain. - Gastrointestinal: Reports a sensation of bloating or fullness in his belly. - Genitourinary: Reports urinary issues, specifically that his bladder does not squeeze enough. - Neurological: Reports pressure in the head, behind the eye, extending to the neck and lower back for the past month and a half. - HEENT: Reports chronic sinus issues and allergies, with frequent nose blowing. - Musculoskeletal: Reports neck and lower back pain. - Constitutional: Denies nausea or vomiting. - Psychiatric: Reports being a nervous patient and worries about his health. All systems reviewed & are unremarkable except as reviewed in HPI and above Physical exam (Primary Care) Vital Signs: Last Vital Signs Temp 97.3 F 08/21/25 14:17 Pulse 60 08/21/25 14:17 BP 110/70 08/21/25 14:17 Pulse Ox 98 08/21/25 14:17 Oxygen Delivery Method Room Air 08/21/25 14:17 Care Plan Goal for BP management: Stable BMI result Body Mass Index 24.2 Tobacco/Smoking Status: Tobacco use Status Tobacco use date assessed 08/21/25 08/21/25 14:14 Patient Tobacco Use Status Never used Tobacco 08/21/25 14:13 e-Cigarette/Vaping Use Never Used 08/21/25 14:14 PHQ-9: PHQ-9 Score PHQ-9: Total score 0 08/21/25 14:45 Depression Screening Interpretation: Negative Thrive Assessment: Date of Thrive Assessment Date Thrive assessed 08/21/25 08/21/25 14:34 Narrative General: +Alert and oriented, Well nourished, No acute distress. Eye: Pupils are equal, round and reactive to light, Intact accommodation, Extraocular movements are intact, Normal conjunctiva, Vision unchanged. HENT: Normocephalic, Atraumatic, Tympanic membranes are clear, Normal hearing, Oral mucosa is moist, No pharyngeal erythema, Ear canals patent. Respiratory: Lungs CTA bilaterally, No wheeze, Respirations are non-labored. Cardiovascular: Regular rate, Regular rhythm, S1 auscultated, S2 auscultated, No murmur, Good pulses equal in all extremities, Normal peripheral perfusion, No edema. Gastrointestinal: Soft, Non-tender, Non-distended, Normal bowel sounds, No organomegaly. Musculoskeletal: Normal range of motion, Normal strength, No tenderness, No swelling, No deformity, Normal gait. Integumentary: Warm, Dry, Colo, Intact. Neurologic: Alert, Oriented, Normal sensory, Normal motor function, No focal defects, Cranial Nerves II-XII are grossly intact, Normal deep tendon reflexes. Psychiatric: Cooperative, Appropriate mood & affect, Normal judgment. Coding Level of Care Code New Pt Level 4 (50646) New Pt Prev Care 40-64y(38480) Diagnoses Chronic congestive heart failure, unspecified heart failure type I50.9 Heart failure chronicity: chronic Heart failure type: unspecified Hypertension, unspecified type I10 Hypertension type: unspecified Paroxysmal atrial fibrillation I48.0 BPH without urinary obstruction or lower urinary tract symptoms N40.0 Hyperlipidemia, unspecified hyperlipidemia type E78.5 Hyperlipidemia type: unspecified Sinus pressure J34.89 Annual physical exam Z00.00 Additional Codes WANDA-7 Assessment Billing - WANDA-7 Assessment Tool: WANDA-7 Assessment 13247 ([id number]) PHQ-9 - 50848 - PHQ-9 Billing: Yes ([id number]) Comment 24901-09 Assessment & Plan Assessment & Plan (1) CHF (congestive heart failure): Comment: - The patient is stable on his current regimen of , carvedilol, Entresto, furosemide - He is followed by a cancer registrar, who has recommended cardiac rehab. - He should continue to follow with his specialists. (Referral Sent) Code(s): I50.9 - Heart failure, unspecified Category: Medical Qualifiers: Heart failure chronicity: chronic Heart failure type: unspecified Qualified Code(s): I50.9 - Heart failure, unspecified (2) Hypertension: Comment: - Pressures stable on treatment of carvedilol and Entresto - Advised continued monitoring of pressures at home Code(s): I10 - Essential (primary) hypertension Category: Medical Qualifiers: Hypertension type: unspecified Qualified Code(s): I10 - Essential (primary) hypertension (3) Paroxysmal atrial fibrillation: Comment: - The patient has a history of atrial fibrillation and is currently out of A-fib on suppressive therapy. - He will continue his current medications of amiodarone and Xarelto. - Thyroid function will be monitored via labs due to amiodarone use. Code(s): I48.0 - Paroxysmal atrial fibrillation Category: Medical (4) BPH without urinary obstruction or lower urinary tract symptoms: Comment: - Stable on tamsulosin 0.4 and currently following with Urology Code(s): N40.0 - Benign prostatic hyperplasia without lower urinary tract symptoms Category: Medical (5) Hyperlipidemia: Comment: - Stable on fenofibrate and repeat lipid panel obtained/ordered today Code(s): E78.5 - Hyperlipidemia, unspecified Category: Medical Qualifiers: Hyperlipidemia type: unspecified Qualified Code(s): E78.5 - Hyperlipidemia, unspecified (6) Sinus pressure: Comment: - The patient's symptoms of head pressure, which worsens on bending, and frequent nose blowing are attributed to sinus congestion, possibly exacerbated by allergies and a mild deviated septum. - A neurological cause such as a stroke is considered less likely given the absence of weakness. - Recommended trying jxes-fbr-nhrchqm decongestants and fluticasone nasal spray for a few days to clear sinuses. - Home remedies were also encouraged. Code(s): J34.89 - Other specified disorders of nose and nasal sinuses Category: Medical (7) Annual physical exam: Comment: - The patient is a 62-year-old male establishing care. - He has multiple chronic conditions managed by various specialists. - Baseline labs including thyroid function, BMP, A1c, lipid panel, vitamin D, and screening for hepatitis, HIV, and syphilis will be ordered to establish a baseline in our system. - Will follow up in 6 months. Code(s): Z00.00 - Encounter for general adult medical examination without abnormal findings Category: Medical Plan: Health Maintenance: - Vaccinations: All immunizations are up-to-date. - Cancer Screening: He recently had a colonoscopy and the results were normal. - Lifestyle: He is currently sedentary after retiring and has been encouraged to increase his activity level. - Diagnostic Labs: A comprehensive set of baseline labs has been ordered, including thyroid, kidney function, blood counts, A1C, lipids, vitamin D, and screenings for hepatitis, HIV, and syphilis. - Specialist Follow-up: Advised to continue following with his specialists, including cardiology, urology, and pulmonology. - Cardiac Rehabilitation: His cancer registrar has recommended cardiac rehab. Patient was informed and verbally consented to the use of an ambient scribe for clinic note documentation during this visit. Vital signs reviewed. Comprehensive history, review of systems, and physical exam completed. Medications, allergies, and problem list reviewed and updated. Counseling provided on nutrition, regular exercise, sleep hygiene, and moderation of alcohol use. Discussed age-appropriate screenings (mammogram, colonoscopy, Pap, bone density) and immunizations (flu, COVID, shingles, Tdap). Screened for depression, fall risk, and home safety; no current concerns. Discussed stress management, dental and vision care, and importance of ongoing preventive follow-up. Routine labs ordered for metabolic and lipid screening. Patient educated on healthy lifestyle and agrees with the plan. Plan I introduced myself as this is our first visit, which will serve as a new patient visit and an annual physical. We reviewed his medical history, including his heart failure, atrial fibrillation, hypertension, sleep apnea, and his pacemaker/defibrillator. We also discussed his current medications and his allergy to clarithromycin, which I noted we will avoid. I explained my assessment that his recent head pressure is likely due to sinus congestion, given his history of allergies and the reported worsening of pressure when bending over. I reassured him that a neurological issue like a stroke is unlikely due to the absence of other symptoms like weakness. I recommended vhta-tps-fhivwec remedies, including fluticasone nasal spray and decongestants, to help clear his sinuses. I informed him that I have ordered a comprehensive panel of labs to establish a baseline for him in our system and requested that he have them done today. I encouraged him to stay active to counteract his sedentary lifestyle and manage his muscle weakness and pain. I strongly advised him to avoid using [employer] for medical advice, as it can cause unnecessary anxiety, a tendency he acknowledged. We agreed to follow up in six months, and I will contact him if there are any concerning lab results. Orders: Orders Hemoglobin A1c Today Z00.00 - Encounter for general adult medical examination without abnormal findings Lipid Panel Today Z00.00 - Encounter for general adult medical examination without abnormal findings Microalbumin, Random (w Creat) Today Z00.00 - Encounter for general adult medical examination without abnormal findings Complete Blood Count Auto Diff Today Z00.00 - Encounter for general adult medical examination without abnormal findings Comprehensive Met. Panel Today Z00.00 - Encounter for general adult medical examination without abnormal findings Hepatitis A,B,C Profile Today Z00.00 - Encounter for general adult medical examination without abnormal findings HIV Ab/Ag Today Z00.00 - Encounter for general adult medical examination without abnormal findings Syphilis Screen Today Z00.00 - Encounter for general adult medical examination without abnormal findings TSH reflex Free T4 Today Z00.00 - Encounter for general adult medical examination without abnormal findings Vitamin D 25-OH Total Today Z00.00 - Encounter for general adult medical examination without abnormal findings Patient Instructions: - For your head pressure and stuffy nose, try using an mnyf-rll-brtplyf decongestant and a nasal spray like fluticasone (Flonase) for a few days to help clear your sinuses. - You can also use other home remedies to help clear your sinuses. - For neck and back pain, you can continue to use Tylenol as needed. - It is important to stay active and keep moving, as this can help with muscle weakness and pain from arthritis. - Please go to the lab in the back of the hospital today to have your blood work done; no paperwork is needed. - Continue taking all your current medications as prescribed. - Please avoid searching for your symptoms on [employer], as this can cause unnecessary worry. - Schedule a follow-up appointment at the hotel front desk clerk for six months from now. - I will call you if any of your lab results are abnormal.
[2025-08-21 14:17] VITALS: BP 110/70; PULSE 60; TEMP 36.3; O2SAT 98; BMI 24.2
--- OUTSIDE RECORDS SUMMARY | 2025-08-21 22:06 | XMS_ITS | Clinical Summary ---
Author Organization [facility] Address [address] [place] [address] Phone Care Team Providers Care Manufacturing Inspector Name Role Phone Sylvie Sesay MD Primary [...] Encounters Date Type Department Care Team Description 08/20/2025 10:12 AM EST - 08/20/2025 11:59 PM EST Hospital Encounter [facility], X-Ray - [facility] [address] [place] [address] Ion Guillaume MD, MS Arrived Discharge Disposition: Home or Self Care 07/29/2025 Telephone [facility] [address], [address] [place] [address] Ion Guillaume MD, MS from Last 3 Months Family History Medical [...] Description 09/09/2025 3:00 PM EST Office Visit [facility] [address] [place] [address] 3rd Floor, [address] [place] [address] Ion Guillaume MD, MS 22 [facility], [address] [place] [address] [email or web address] Health Maintenance Due Date Last Done Comments [...] LEVEL 11/21/2024 11/22/2023 INFLUENZA VACCINE (#1) 2025 0, 07/08/2019, 06/24/2018, Additional history exists COVID-19 VACCINE (3 - season) 2025 12/01/2020, 10/24/2020 Adult Td,Tdap Booster [...] this topic Medical Devices Implanted Type Area Pit Supervisor Device Identifier Shelf Expiration Date Model / Serial / Lot Envelope Tyrx Cardiac Lg Absorbable Antibacterial Sterile - [id number] Implanted:Qty: 1 on 11/23/2023 by William Watson MD at [facility] Collagen [employer] [facility] [id number] 04/08/2024 [id number] / / [id number] Medtronic Biv Icd ICD Defibrillator Cardioverter Emili Df1 [id number] [place] Xt Hf Single Wire Saw Operator-D Mri Surescan Titanium Polyurethane - [id number] Implanted:Qty: 1 on 11/23/2023 by William Watson MD at [facility] ICD Left: Chest Wall [employer] [facility] [id number] 03/09/2025 [id number] / [id number] / Procedures Procedure Name Priority Date/Time Associated Diagnosis Comments XR CHEST PA AND LATERAL 2 VIEWS Routine 08/20/2025 10:24 AM EST Dyspnea on exertion BASIC METABOLIC PANEL (BMP) Routine 11/22/2023 9:25 AM EDT Paroxysmal atrial fibrillation from Last 3 Months or Most Recently Relevant to Health Maintenance Results * XR CHEST PA AND LATERAL [...] clinician's provided indication for this examination in [facility]: Dyspnea on exertion; Dilated cardiomyopathy, rule out acute/chronic CHF; PAF on amiodarone, rule out pulmonary toxicity COMPARISON: [facility] CHEST PA AND LAT D089 ; [facility] PORTABLE CHEST OR105 ; [facility] CHEST PA and LAT A089 FINDINGS: Devices/Tubes/Lines: [...] clinician's provided indication for this examination in [facility]:Dyspnea on exertion; Dilated cardiomyopathy, rule out acute/chronic CHF;PAF on amiodarone, rule out pulmonary toxicity COMPARISON: [facility] CHEST PA AND LAT D089 ; [facility] PORTABLE [id number] ; [facility] CHEST PA and LAT A089 FINDINGS: Devices/Tubes/Lines: [...] MS IMG XR CHEST Final Res ult * (ABNORMAL) Basic metabolic panel (11/22/2023 9:25 AM EDT) [facility] Signature SODIUM 140 133 - 146 mmol/L [facility] CHLORIDE 104 96 - 108 mmol/L [facility] POTASSIUM 4.2 3.3 - 5.1 mmol/L [facility] CO2 29 21 - 35 mmol/L [facility] BUN 22(H) 6 - 19 mg/dL [facility] CREATININE 1.00 0.5 - 1.5 mg/dL [facility] GLUCOSE 107(H) 70 - 99 mg/dL [facility] CALCIUM 9.7 8.4 - 10.3 mg/dL [facility] EGFR 87 >59 mL/min/1.7 3m2 [facility] Comment:Estimated glomerular filtration rate calculated using the CKD-EPI refit equation. ANION GAP 11 10 - 20 mmol/L [facility] Blood 11/22/2023 9:25 AM EDT 11/22/2023 9:29 AM EDT us William Watson MD LAB BLOOD BKR ORDERABLES Final Result Performing Organization Address City/State/[facility] Co de Phone Number [address] [address] from Last 3 Months or Most Recently Relevant to Health Maintenance [place] [address] [place] [address] [place] [address] [place] [address] [facility] ACO Care Teams Manufacturing Inspector Relationship Specialty Start Date End Date Sylvie Sesay MD [address] [place] [address] PCP - General Internal Medicine 12/17/24 Additional Source Comments The information contained in this document represents components of the legal health record. It is not the complete legal health record.[facility]
--- OUTSIDE RECORDS SUMMARY | 2025-08-21 22:07 | XMS_ITS | Clinical Summary ---
Author Organization [facility] Address [address] [place] [address] Phone Care Team Providers Care Side Framer Name Role Phone Sylvie Sesay MD Primary Care Provider [phone] Allergies No known active allergies Social History Tobacco Use Types Packs/Day Years [...] Blood Test 01/31/2025 Influenza Vaccine (#1) 2025 , 06/01/2023, 06/03/2022, Additional history exists COVID-19 Vaccine (2024- season) 2025 04/05/2025, 05/15/2024, 11/15/2023, Additional history exists DTaP,Tdap,and Td Vaccines (2 - Td or Tdap) 03/23/2028 03/23/2018 MMR Vaccines Aged Out 11/24/2018, 10/05/2018 No lo nger eligible based on patient's age to complete this topic Pneumococcal Vaccine: 50+ Years Completed 07/27/2024 HIB Vaccines Aged Out No longer eligi [...] patient's age to complete this topic Insurance [facility] [place] [address] Care Teams Side Framer Relationship Specialty Start Date End Date Sylvie Sesay MD [address] [place] [phone] PCP - General Internal Medicine 01/09/25
--- OUTSIDE RECORDS SUMMARY | 2025-08-21 22:07 | XMS_ITS | Encounter Summary ---
Author Organization [facility] Address [address] [facility] [address] [place] [address] Phone Care Team Providers Care Design Printing Machine Setter Name Role Phone Juan Carlos Rios MD Primary Care Provider Sylvie Sesay MD Primary Care Provider + Encounter Details Date Type Department Care Team (Late st Contact Info) Description 08/16/2019 Ancillary Orders Non-Invasive Cardiology [address] [place] [address] Ramirez Kennedy MD 22 [place] [address] [email or web address] Complete heart block Social History Tobacco [...] Description 09/09/2025 3:00 PM EST Office Visit [facility] [address] Floor, [address] [place] [address] Ion Guillaume MD, MS 22 [facility], [address] [address] [email or web address] documented as of this encounter Results * DEVICE CHECK: ICD REMOTE INTERROGATION WITH CONDUIT MECHANIC REVIEW (10/01/2019 12:16 PM EST) Narrative Ramirez Kennedy MD - 10/03/2019 4:07 PM EST Reason for appointment: Remote ICD interrogation HPI: Routine 3 month remote ICD interrogation. No device related complaints. Indication for device: Dilated Cardiomyopathy Examination: Device type: BiV ICD Mail Inserter: Medtronic Mode: DDD LRL/URL: 60/130 bpm Thresholds, [...] complete documented in this encounter Care Teams Design Printing Machine Setter Relationship Specialty Start Date End Date Juan Carlos Rios MD [address] [place] [address] Dr WYNN [address] [place] [address] PCP - General 06/30/17 12/16/24 Sylvie Sesay MD [address] [place] [address] PCP - General Internal Medicine 12/17/24 documented as of this encounter Additional Source Comments The information contained in this document represents components of the legal health record. It is not the complete legal health record.[facility]
--- OUTSIDE RECORDS SUMMARY | 2025-08-21 22:07 | XMS_ITS | Encounter Summary ---
Author Organization [facility] Address [address] [facility] [address] [place] [address] Phone Care Team Providers Care Typing Checker Name Role Phone Juan Carlos Rios MD Primary Care Provider [phone] Sylvie Sesay MD Primary Care Provider + Encounter Details Date Type Department Care Team (Late st Contact Info) Description 08/16/2020 Procedure Pass Non-Invasive Cardiology [address] [place] [address] Social History Tobacco Use Types Packs/Day Years [...] Description 09/09/2025 3:00 PM EST Office Visit [facility] 22 [facility] 3rd Floor, [address] [place] [address] Ion Guillaume MD, MS 22 [facility], [address] [place] [address] documented as of this encounter Visit Diagnoses Not on filedocumented in this encounter Care Teams Typing Checker Relationship Specialty Start Date End Date Juan Carlos Rios MD [address] [place] [address] [place] [address] PCP - General 06/30/17 12/16/24 Sylvie Sesay MD [address] [place] [address] PCP - General Internal Medicine 12/17/24 documented as of this encounter Additional Source Comments The information contained in this document represents components of the legal health record. It is not the complete legal health record.[facility]
--- OUTSIDE RECORDS SUMMARY | 2025-08-21 22:07 | XMS_ITS | Encounter Summary ---
Author Organization [facility] Address [address] [facility] [address] [place] [address] Phone Care Team Providers Care Machine Assembler Supervisor Name Role Phone Juan Carlos Rios MD Primary Care Provider [phone] Sylvie Sesay MD Primary Care Provider + Encounter Details Date Type Department Care Team (Late st Contact Info) Description 07/02/2017 Ancillary Orders [facility] [address] [place] [address] Ramirez Kennedy MD 22 [place] [address] Social History Tobacco Use Types Packs/Day Years [...] Description 09/09/2025 3:00 PM EST Office Visit [facility] [address] 3rd Floor, [address] [place] [address] Ion Guillaume MD, MS 22 [facility], [address] [place] [address] [email or web address] documented as of this encounter Visit Diagnoses Not on filedocumented in this encounter Care Teams Machine Assembler Supervisor Relationship Specialty Start Date End Date Juan Carlos Rios MD [address] [place] [address] [address] PCP - General 06/30/17 12/16/24 Sylvie Sesay MD [address] [place] [address] PCP - General Internal Medicine 12/17/24 documented as of this encounter Additional Source Comments The information contained in this document represents components of the legal health record. It is not the complete legal health record.[facility]
--- OUTSIDE RECORDS SUMMARY | 2025-08-21 22:07 | XMS_ITS | Encounter Summary ---
Author Organization [employer] Address [address] [facility] 7t [place] [address] Care Team Providers Care Bloom Conveyor Operator Name Role Phone Unavailable Primary Care Provider Unavailabl e Reason for Visit * Reason Onset Date Comments Appointment 11/16/2022 Encounter Details Date Type Department Care Team (Late st Contact Info) Description 11/16/2022 Telephone [facility] [address] [place], [place] [phone] Vargas Pearson, SHANIA [address] [place] [address] Appointment Social History Tobacco Use Types Packs/Day [...]
--- OUTSIDE RECORDS SUMMARY | 2025-08-21 22:07 | XMS_ITS | Encounter Summary ---
Author Organization [employer] Address [address] [facility] 7t [place] [address] Care Team Providers Care Slide Machine Tender Name Role Phone Unavailable Primary Care Provider Unavailabl e Reason for Visit * Reason Onset Date Comments Appointment 02/17/2023 Encounter Details Date Type Department Care Team (Late st Contact Info) Description 02/17/2023 Telephone [facility] [address] [place] [address] Hugo Truong, HERONS [address] [place] [address] Appointment Social History Tobacco Use Types Packs/Day [...]
--- OUTSIDE RECORDS SUMMARY | 2025-08-21 22:07 | XMS_ITS | Clinical Summary ---
Author Organization [employer] Address [address] [facility] 7t [place] [address] Care Team Providers Care Hand Bulldozer Name Role Phone Unavailable Primary Care Provider [...] Years (1 of 1 - PCV) 2014 RSV Patients and Patients Aged 60 years or older (1 - Risk 50-74 years 1-dose series) 2014 Zoster Vaccines (1 of 2) 2014 Dental Oral Exam 03/17/2022 09/16/2021 Dental X-Ray: Bitewings 09/17/2022 09/16/2021 Tobacco Screening 07/11/2024 07/11/2023 Dental X-Ray: Full [...] patient's age to complete this topic Insurance [facility] MEDICAID STAND ADULT
--- OUTSIDE RECORDS SUMMARY | 2025-08-21 22:07 | XMS_ITS | Encounter Summary ---
Author Organization [facility] Address [address] [facility] [address] [place] [address] Phone Care Team Providers Care E Commerce Analyst Name Role Phone Juan Carlos Rios MD Primary Care Provider [phone] Sylvie Sesay MD Primary Care Provider + Encounter Details Date Type Department Care Team (Late st Contact Info) Description 06/16/2020 Ancillary Orders Non-Invasive Cardiology [address] [place] [address] Ramirez Kennedy MD 22 [place] [address] [email or web address] Complete heart block Social History Tobacco Use [...] Description 09/09/2025 3:00 PM EST Office Visit [facility] [address] 3rd Floor, [address] [place] [address] Ion Guillaume MD, MS 22 [facility], [address] [address] [email or web address] documented as of this encounter Visit Diagnoses Diagnosis Complete heart block Atrioventricular block, complete documented in this encounter Care Teams E Commerce Analyst Relationship Specialty Start Date End Date Juan Carlos Rios MD [address] [place] [address] [facility] [place] [address] PCP - General 06/30/17 12/16/24 Sylvie Sesay MD [address] [place] [address] PCP - General Internal Medicine 12/17/24 documented as of this encounter Additional Source Comments The information contained in this document represents components of the legal health record. It is not the complete legal health record.[facility]
--- OUTSIDE RECORDS SUMMARY | 2025-08-21 22:07 | XMS_ITS | Patient Health Record ---
Author Organization [facility] Address [address] [place] [address] Care Team Providers Care Registrar Museum Name Role Phone Gabriel (RETIRED) Juan Carlos SERRATO Primary Care Provider Unavailable Ion Mckeon Unavailable [phone] Allergies Allergen (clinical drug ingredient) Drug/Non Drug Allergy documented on EMR Reaction Allergy Type Onset Date Status Biaxin Unknown Drug Allergy Active Results Component Value Reference Range Notes Pathology Reviewed date:03/14/2025 12:41:03 AM Interpretation: Performing Lab:[facility], [address] [place] [phone] Notes/Report: Reason For Referral No Information Medications Medication SIG (Take, Route, Frequency, Duration) Notes Start Date End Date Status Xarelto 20 MG Tablet Oral; Duration: 30 Days Unknown Vitamin D-3 25 MCG (1000 UT) Capsule 1 capsule Orally Once a day; Duration: 30 day(s) 10/31/2024 Unknown Amiodarone HCl 100 MG Tablet Oral; Duration: 90 Days Unkn own Furosemide 20 MG Tablet Oral; Duration: 90 Days Unknown Carvedilol 25 MG Tablet Oral; Duration: 90 Days Unknown Tamsulosin HCl 0.4 MG Capsule TAKE 1 CAPSULE BY MOUTH EVERYDAY AT BEDTIME Oral; Duration: 90 Days Unknown Terbinafine HCl 250 MG Tablet TAKE 1 TABLET BY MOUTH EVERY DAY FOR 7 DAYS Oral; Duration: 7 Days Unknown Fenofibrate 160 MG Tablet Oral; Duration: 90 Days Unknown Losartan Potassium 50 MG Tablet Oral; Duration: 90 Days Unkn own Immunizations Vaccine Route Administration Date Status Comme nts Influenza Unknown 07/03/2024 Administered Social History Tobacco Use: Social History Observation Description Date Details (start date - stop date) Never Smoker NA - NA Social History Drugs/Alcohol: Social Info Question Answer Notes Alcohol Screen Did you have a drink containing alcohol in the past year? Yes How often did you have a drink containing alcohol in the past year? Monthly or less (1 point) How many drinks did you have on a typical day when you were drinking in the past year? 1 or 2 drinks (0 point) How often did you have 6 or more drinks on one occasion in the past year? Never (0 point) Points 1 Interpretation Negative Tobacco Use: Social Info Question Answer Notes Tobacco Use/Smoking Patient is a nonsmoker Additional Details Category Social Info Options Details Miscellaneous: Marital status: Occupation: Retired teacher Section Notes: Nonsmoker, no sig alcohol Problems Problem Type SNOMED Code ICD Code Onset Dates Problem Status W/U Status Risk Notes Problem Colon cancer screening (155364532) Colon cancer screening (Z12.11) Active confirmed Problem Pre-procedure evaluation check (346084580) Encounter for other preprocedural examination (Z01.818) Active confirmed Vital Signs Temperature 97.5 degrees Fahrenheit 10/31/2024 Blood pressure diastolic 01 mm Hg 10/31/2024 Height 70 in 10/31/2024 Blood pressure systolic 001 mm Hg 10/31/2024 Weight 165 lbs 10/31/2024 BMI 23.67 kg/m2 10/31/2024 Encounters Encounter Location Date Provider Diagnosis [facility] [address] [place] [phone] 02/13/2025 Ion Mckeon Colon cancer screeni ng Z12.11 ; Colon polyp K63.5 ; Diverticulosis of colon K57.30 and Internal hemorrhoid K64.8 [facility] [address] [place] [phone] 10/31/2024 Ion Mckeon Colon cancer screeni ng Z12.11 and Encounter for other preprocedural examination Z01.818 [facility] [address] [place] [phone] 10/31/2024 Ion Mckeon [facility] [address] [place] [phone] 11/22/2024 Ion Mckeon [facility] [address] [place] [phone] 03/13/2025 Ion Mckeon Assessments Encounter Date Diagnosis (ICD Code) Assessment Notes Treatment Notes Treatment Clinical Notes Section Notes 02/13/2025 Colon cancer screening (ICD-10 - Z12.11) 02/13/2025 Colon polyp (ICD-10 - K63.5) 10/31/2024 Colon cancer screening (ICD-10 - Z12.11) Do not take Xarelto for 2 days before the colonoscopy Do not take the Furosemide on the day of the colonoscopy Need clearance from Office Director, Dr. Jefferson, in [place]-- patient has an appt there in 11/2024. [...] He does have an appointment with his sleeve bottom feller next month and we will obtain cardiology [...] He does have an appointment with his sleeve bottom feller next month and we will obtain cardiology [...] Insured Coverage Start Date Coverage End Date [facility] [address] [address] [place], [place] [id number] [phone] [id number] ALAN SUTHERLAND Self - patient is the insured Medical (General) History Medical History History ICD Code VA x 2--approx 2007--Dr. 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
--- OUTSIDE RECORDS SUMMARY | 2025-08-21 22:07 | XMS_ITS | Encounter Summary ---
Author Organization [facility] Address [address] [facility] [address] [place] [address] Phone Care Team Providers Care Coroner Forensic Technician Name Role Phone Juan Carlos Rios MD Primary Care Provider Sylvie Sesay MD Primary Care Provider + Encounter Details Date Type Department Care Team (Late st Contact Info) Description 03/03/2020 Ancillary Orders Non-Invasive Cardiology [address] [place] [address] Ramirez Kennedy MD 22 [place] [address] [email or web address] Syncope and collapse Social History [...] Description 09/09/2025 3:00 PM EST Office Visit [facility] [address] 3rd Floor, [address] [place] [address] Ion Guillaume MD, MS 22 [facility], [address] [address] documented as of this encounter Results * DEVICE CHECK: ICD IN-HOME INTERROGATION (06/02/2020 11:35 AM EDT) Narrative Ramirez Kennedy MD - 06/04/2020 1:42 PM EDT Reason for appointment: Remote ICD interrogation HPI: Routine 3 month remote ICD interrogation. No device related complaints. Indication for device: Syncope Examination: Device type: BiV ICD Sql Report Writer: Medtronic Mode: DDD LRL/URL: 60/130 bpm Thresholds, [...] collapse documented in this encounter Care Teams Coroner Forensic Technician Relationship Specialty Start Date End Date Juan Carlos Rios MD [address] [place] [address] [address] PCP - General 06/30/17 12/16/24 Sylvie Sesay MD [address] [place] [address] [address] [place] [address] PCP - General Internal Medicine 12/17/24 documented as of this encounter Additional Source Comments The information contained in this document represents components of the legal health record. It is not the complete legal health record.[facility]
--- OUTSIDE RECORDS SUMMARY | 2025-08-21 22:07 | XMS_ITS | Encounter Summary ---
Author Organization [facility] Address [address] [facility] [address] [place] [address] Phone Care Team Providers Care Manager Of Corporate Name Role Phone Juan Carlos Rios MD Primary Care Provider Sylvie Sesay MD Primary Care Provider + Encounter Details Date Type Department Care Team (Latest Contact Info) Description 07/02/2017 Ancillary Orders [facility] [address] [place] [address] 3rd Floor, [address] [place] [address] Ramirez Kennedy MD 22 [place] [address] [email or web address] Diagnosis unknown Social History Tobacco Use Types [...] Description 09/09/2025 3:00 PM EST Office Visit [facility] [address] [place] 3rd Floor, [address] [place] [address] Ion Guillaume MD, MS 22 [facility], [address] [address] documented as of this encounter Results * DEVICE CHECK: ICD IN-HOME INTERROGATION (10/21/2017 8:30 AM EST) Narrative Ramirez Kennedy MD - 10/25/2017 5:38 PM EST Reason for appointment: Remote ICD interrogation HPI: Routine 3 month remote ICD interrogation. No device related complaints. Indication for device NICM Examination: Device type: ICD Sock Folder: MDLilly Thresholds, impedances, and sensing stable. Mode [...] unknown documented in this encounter Care Teams Manager Of Corporate Relationship Specialty Start Date End Date Juan Carlos Rios MD [address] [place] [address] Dr WYNN [address] [place] [address] PCP - General 06/30/17 12/16/24 Sylvie Sesay MD [address] [place] [address] PCP - General Internal Medicine 12/17/24 documented as of this encounter Additional Source Comments The information contained in this document represents components of the legal health record. It is not the complete legal health record.[facility]
--- OUTSIDE RECORDS SUMMARY | 2025-08-21 22:07 | XMS_ITS | Encounter Summary ---
Author Organization [facility] Address [address] [place] [id number] Phone Care Team Providers Care Criminal Lawyer Name Role Phone Juan Carlos Rios MD Primary Care Provider Sylvie Sesay MD Primary Care Provider + Encounter Details Date Type Department Care Team (Late st Contact Info) Description 11/23/2023 Procedure Pass [facility] [address] [place] [address] Social History Tobacco Use Types Packs/Day Years [...] Description 09/09/2025 3:00 PM EST Office Visit [facility] [address] [place] [address] [address] Floor, [address] [place] [address] Ion Guillaume MD, [place] [address] [facility], [address] [place] [address] [email or web address] documented as of this encounter Visit Diagnoses Not on filedocumented in this encounter Care Teams Criminal Lawyer Relationship Specialty Start Date End Date Juan Carlos Rios MD [address] [place] [address] [address] PCP - General 06/30/17 12/16/24 Sylvie Sesay MD [address] [place] [address] [address] [place] [address] PCP - General Internal Medicine 12/17/24 documented as of this encounter Additional Source Comments The information contained in this document represents components of the legal health record. It is not the complete legal health record.[facility]
--- OUTSIDE RECORDS SUMMARY | 2025-08-21 22:07 | XMS_ITS | Encounter Summary ---
Author Organization [facility] Address [address] [facility] [address] [place] [address] Phone Care Team Providers Care Entertainment & Media Correspondent Name Role Phone Juan Carlos Rios MD Primary Care Provider [phone] Sylvie Sesay MD Primary Care Provider + Encounter Details Date Type Department Care Team (Late st Contact Info) Description 02/26/2020 Ancillary Orders Non-Invasive Cardiology [address] [place] [address] Ramirez Kennedy MD [address] [place] [address] [email or web address] Social History Tobacco [...] Description 09/09/2025 3:00 PM EST Office Visit [facility] [address], [address] [place], [place] [id number] Ion Guillaume MD, MS [address] [facility], [address] [id number] [email or web address] documented as of this encounter Results * DEVICE CHECK: ICD IN-HOME INTERROGATION PLUS HFM IMPEDANCE (02/27/2020 8:51 AM EDT) Narrative Ramirez Kennedy MD - 02/27/2020 5:02 PM EDT Reason for appointment: Remote ICD interrogation HPI: Routine 3 month remote ICD interrogation. No device related complaints. Indication for device: Dilated cardiomyopathy Examination: Device type: BiV ICD Ccnp: Medtronic Mode: DDD LRL/URL: 60/130 bpm Thresholds, [...] Dilated cardiomyopathy Examination: Device type: BiV ICD Ccnp: Medtronic Mode: DDD LRL/URL: 60/130 bpm Thresholds, [...] complete documented in this encounter Care Teams Entertainment & Media Correspondent Relationship Specialty Start Date End Date Juan Carlos Rios MD [address] [place] [address] [id number] PCP - General 06/30/17 12/16/24 Sylvie Sesay MD [address] [place] [id number] PCP - General Internal Medicine 12/17/24 documented as of this encounter Additional Source Comments The information contained in this document represents components of the legal health record. It is not the complete legal health record.[facility]
== END 2025-08-21 14:41 | disposition home or self-care (01) ==
LOC: HO.HMCHD 14:10
PROVIDERS: PCP Family Medicine; Visit Provider Student in an Organized Health Care Education/Training Program
DX: Z00.00 Encounter for general adult medical examination without abnormal findings (principal); I11.0 Hypertensive heart disease with heart failure; I50.9 Heart failure, unspecified; I48.0 Paroxysmal atrial fibrillation; N40.0 Benign prostatic hyperplasia without lower urinary tract symptoms; E78.5 Hyperlipidemia, unspecified; J34.89 Other specified disorders of nose and nasal sinuses

== ENCOUNTER 2025-08-21 14:09 | Outpatient (REF) | payer OTHER, SELFPAY ==
[2025-08-21 15:04] LABS: MANUAL DIFF FLAG NO
[2025-08-21 15:58] LABS: Hematocrit 38.9 % (42.0-52.0); Hemoglobin 13.8 g/dl (14.0-18.0); Imm Gran Abs Auto 0.01 X10*3/uL (0.00-0.03); Imm Gran Pct Auto 0.2 % (0.0-0.4); Lymphocytes Absolute Auto 1.5 X10*3/uL (1.2-4.9); Mean Corpuscular HGB Conc 35.5 g/dl (31.0-36.0); Mean Corpuscular Hemoglobin 31.6 pg (27.0-33.0); Mean Corpuscular Volume 89.0 fL (80.0-98.0); NRBC Abs Auto 0.000 X10*3/uL (0.0-0.012); NRBC Pct Auto 0.0 /100WBC (0.0-0.2); Platelet Count 244 X10*3/uL (160-400); Red Blood Count 4.37 X10*6/uL (4.60-5.80); White Blood Count 4.6 X10*3/uL (4.8-10.8)
[2025-08-21 16:51] LABS: Alanine Aminotransferase 18 U/L (0-40); Albumin Level 4.7 g/dL (3.5-5.0); Alkaline Phosphatase 40 U/L (39-117); Anion Gap 12 (12-20); Aspartate Amino Transferase 58 U/L (5-37); Blood Urea Nitrogen 20 mg/dL (9-16); Calcium 9.4 mg/dL (8.4-10.2); Carbon Dioxide 28 mmol/L (22-29); Chloride 103 mmol/L (96-108); Cholesterol 199 mg/dL (<200); Estimated Glomerular Filt Rate 60; HDL Cholesterol 37 mg/dL (>40); Potassium 4.1 mmol/L (3.3-5.1); Sodium 139 mmol/L (135-145); Total Protein 6.9 g/dL (6.5-8.0); Triglycerides 240 mg/dL (<150)
[2025-08-22 04:14] LABS: Syphilis Screen Nonreactive (Nonreactive)
[2025-08-22 04:36] LABS: HBS Num1 0.00 mIU/mL (0-7.99); HBc Num1 0.05 S/CO (0.00-0.79); HBsAGNum1 0.34 S/CO (0.00-0.99); HIV Num 1 0.06 S/CO (0.00-0.99); Hepatitis A Antibody IgM 0.19 Index (0-0.79); Hepatitis B Surface Antigen Negative (Negative); ~HepC Num1 0.08 S/CO (0.00-0.79); ~Hepatitis A Antibody IgM Nonreactive (Nonreactive); ~Hepatitis B Surface Antibody NONREACTIVE (Nonreactive); ~Hepatitis C Antibody Nonreactive (Nonreactive)
== END 2025-08-21 14:10 | disposition home or self-care (01) ==
LOC: HO.LAB 14:09
PROVIDERS: PCP Family Medicine; Visit Provider Student in an Organized Health Care Education/Training Program
DX: Z00.00 Encounter for general adult medical examination without abnormal findings (principal); I11.0 Hypertensive heart disease with heart failure; I50.9 Heart failure, unspecified; I48.0 Paroxysmal atrial fibrillation; N40.0 Benign prostatic hyperplasia without lower urinary tract symptoms; E78.5 Hyperlipidemia, unspecified; J34.89 Other specified disorders of nose and nasal sinuses
CPT/HCPCS: 36415; 80053; 80061; 82306; 83036; 84443; 85025; 86704; 86706; 86709; 86780; 86803; 87340; 87389; 96127; 99386